=== PATIENT | male | born 1945 | race Caucasian/White ===

== ENCOUNTER 2019-04-25 23:54 | Inpatient (IN) ==
--- OUTSIDE RECORDS SUMMARY | 2019-04-25 23:57 | External Medical Summary | Continuity of Care Document ---
:1945 Author Name Gabriel Flores, Provider Address Unavailable Unavailable , Care Team Providers Name Role Phone Suzanne Hubbard III, M.D.. PCl Unavailable [email or web address] French GAN Unavailable [email or web address] Problems Nephrolithiasis (592.0) (N20.0) Ureteral stone (592.1) (N20.1) Lumbar canal stenosis (724.02) (M48.061) Lumbosacral radiculopathy at L5 (724.4) (M54.17) Allergies and Adverse Reactions No Known Drug Allergies (Allergy) Medications glipiZIDE XL 5 MG Oral Tablet Extended R elease 24 Hour; TAKE 1 TABLET DAILY WITH BREAKFAST. Refills: 0 Atorvastatin Calcium 20 MG Oral Tablet; TAKE 1 TABLET DAILY. Refills: 0 Potassium Citrate ER 10 MEQ (1080 MG) Or al Tablet Extended Release; Take 1 tablet daily Refills: 0 Allopurinol 100 MG Oral Tablet; TAKE 2 TABLETS DAILY. ELVIA Braswell Start: 27-Nov-2014 Quantity: 180 Refills: 2 Macuvite [facility] Care Oral Tablet; TAKE 1 TABLET DAILY. Start: 12-Mar-2014 Refills: 0 Tylenol Extra Strength 500 MG Oral Tablet Refills: 0 Doxepin HCl - 75 MG Oral Capsule; TAKE ONE CAPSULE BY MOUTH AT BEDTIME Stevie FOSTER M.D. E. P. Start: 14-Apr-2019 Quantity: 90 Refills: 2 Vitamin D3 1000 UNIT Oral Tablet Refills: 0 Procedures Procedures not documented Immunizations Immunizations not documented Social History - Smoking Status Current every day smoker Former smoker Plan of Treatment Planned Encounters Appointment; Fazal Hubbard III, M.D. Start: 28-Aug-2019 9:[address] Planned Observations Planned Goals not documented Results No Known Results Results not documented Encounters Appointment; Fazal Hubbard III, M.D. 14-Mar-2018 10:00 Encounter Diagnosis: Problem not documented Appointment; Fazal Hubbard III, M.D. 28-Aug-2019 9:45 Encounter Diagnosis: Problem not documented
[2019-04-26] MEDS ORDERED: ONDANSETRON INJ 2 MG/ML 2 ML VIAL IV STA (00:24)
[2019-04-26] MEDS ORDERED: HYDROmorphone INJ 0.5 MG/0.5 ML SYR IV STA ×3 (00:24→02:43)
[2019-04-26] MEDS ORDERED: SODIUM CHLORIDE 0.9% 1000ML 1,000 ML IV SCH ×2 (00:30→02:45)
[2019-04-26 00:34] LABS: Basophils # (auto) 0.03 K/uL (0-0.2); Basophils % (auto) 0.3 %; Eosinophils # (auto) 0.38 K/uL (0-0.5); Eosinophils % (auto) 3.5 %; Hematocrit (blood only) 40.2 % (42-52); Hemoglobin 14.1 g/dL (14.0-18.0); Immature Granulocytes # (auto) 0.08 K/uL (0.00-0.02); Immature Granulocytes % (auto) 0.7 %; Lymphocytes # (auto) 2.02 K/uL (1.2-3.4); Lymphocytes % (auto) 18.5 %; Mean Corpuscular Hgb Conc 35.1 g/dL (32-36); Mean Corpuscular Volume 85.5 fL (80-100); Mean Platelet Volume 9.9 fL (7.4-10.4); Monocytes # (auto) 0.66 K/uL (0.11-0.59); Monocytes % (auto) 6.1 %; Neutrophils # (auto) 7.73 K/uL (1.4-6.5); Neutrophils % (auto) 70.9 %; Platelet Count 191 K/uL (130-400); RDW Coefficient of Variation 13.7 % (11.5-14.5); RDW Standard Deviation 42.8 fL (36.4-46.3)
[2019-04-26 00:51] LABS: Albumin Level 3.9 gm/dl (3.4-5.0); BUN Creatinine Ratio 15.7 (10-20); Calcium 9.1 mg/dl (8.5-10.1); Creatinine Clr Calc Pharmacy 50.4 ml/min; Est GFR (African American) 45.7; Est GFR (Non-African American) 39.4; Potassium 4.3 mmol/L (3.5-5.1)
[2019-04-26 00:54] LABS: Bilirubin,Total 0.6 mg/dl (0.2-1); Globulin 3.8 gm/dl (2.5-4.0); Total Protein 7.7 gm/dl (6.4-8.2)
[2019-04-26 02:28] LABS: Appearance Urine Cloudy (Clear); Bacteria Urine Automated 4+ (Negative); Bilirubin Urine Negative (Negative); Blood Urine 1+ (Negative); Color Urine Yellow; Epithelial Cell Urine Auto 0-5 /lpf (0-5); Glucose Urine UA 3+ (Negative); Ketones Urine Negative (Negative); Leukocyte Esterase Urine 1+ (Negative); Nitrite Urine Positive (Negative); Protein Urine Negative (Negative); Specific Gravity Urine 1.026 (1.000-1.030); Urobilinogen Urine Negative (Negative); WBC Urine Automated >30 /hpf (0-5)
[2019-04-26] MEDS ORDERED: CIPROFLOXACIN 400 MG/200 ML BAG IV STA (02:42)
[2019-04-26] MEDS ORDERED: TAMSULOSIN HCL 0.4 MG CAP PO ONE (02:43)
[2019-04-26] MEDS ORDERED: KETOROLAC TROMETHAMINE 15 MG/ML VIAL IV STA (02:43)
--- NOTE | 2019-04-26 04:13 | History and Physical Report ---
DATE OF ADMISSION: 04/26/2019 CHIEF COMPLAINT: Right flank pain. HISTORY OF PRESENT ILLNESS: This is a 73-year-old male with past medical history significant for diabetes, hypercholesterolemia, right bundle-branch block, chronic low back pain, history of gout, history of kidney stones. Comes because of right flank pain and found to have 5-mm right kidney stone. The pain started yesterday late in the afternoon, severe in nature, in the right flank region and radiated somewhat into groins, also some nausea. Denies any fever, chills. No burning micturition, no hematuria. Normal bladder movements. Normal bowel movements. No blood in the stools. No chest pain, no shortness of breath, no cough, no headache, no blurred visions. Appetite is okay. No difficulty swallowing. Lives with his . Ambulates okay. Currently resting comfortable and hemodynamically stable. ALLERGIES: No known drug allergies. PAST MEDICAL HISTORY: As mentioned above. PAST SURGICAL HISTORY: Cystoscopy and lumbar spine injections. MEDICATIONS: The patient is on atorvastatin 20 mg p.o. daily, allopurinol 100 mg p.o. daily, glipizide 5 mg p.o. daily, potassium citrate 10 mEq daily, Tylenol p.r.n., vitamin D 1000 units p.o. daily, doxepin 75 mg p.o. at bedtime. FAMILY HISTORY: Significant for father had heart disorder. Mother has kidney stones. SOCIAL HISTORY: , quit smoking in 2012, prior to that smoked half pack a day for 40 years. No alcohol use, no drug use. REVIEW OF SYMPTOMS: As per HPI. Rest of the review of symptoms negative. PHYSICAL EXAMINATION: GENERAL: The patient is of moderate build, not in acute distress. VITAL SIGNS: Temperature 36.6, pulse 88, respiratory rate 18, blood pressure 156/87, oxygen 92% on room air. HEENT: No pallor, no icterus. Pupils equal, round, and reactive to light. NECK: No JVD, no neck masses, no carotid bruit. CARDIOVASCULAR: S1, S2 heard, regular rate and rhythm, no murmur, no gallop. RESPIRATORY SYSTEM: Normal AP diameter. No accessory muscle use. No wheezing, no crackles. ABDOMEN: Soft, bowel sounds present. Mild right CVA tenderness present. No guarding, no rigidity, no distention. CENTRAL NERVOUS SYSTEM: Cranial nerves II-XII grossly intact. Nonfocal. EXTREMITIES: No edema, no erythema. LABORATORY DATA: WBC 10.9, hemoglobin 14.1, hematocrit 40.2, platelets 191. Sodium 137, potassium 4.3, chloride 105, bicarb 26, BUN 26, creatinine 1.6, serum glucose 291, calcium 9.1, total bilirubin 0.6, AST 13, ALT 28, alkaline phosphatase 131. Urinalysis positive for nitrite and leukocyte esterase. IMAGING DATA: CT of abdomen and pelvis, official reading pending. ASSESSMENT AND PLAN: This is a 73-year-old male who presents with right flank pain and found to have a kidney stone. 1. Renal colic, right kidney stone, 5 mm, await official CAT scan reading. Will remain n.p.o. IV fluids, IV pain meds p.r.n., IV antiemetics p.r.n., and consult urology. H xof uric acid kidney stones, patient is on potassium citrate, which will continue and also allopurinol whic 2. urinary tract infection, IV Rocephin. Follow the cultures. 3. History of diabetes. Hold his home p.o. medications. Placed him on insulin sliding scale. Follow hemoglobin A1c levels. 4. History of hyperlipidemia. Continue statin. 5. Deep vein thrombosis prophylaxis, sequential compression devices for now. 6. Disposition: Admit to medical floor. Expect to discharge home and follow with his family doctor. Level 1 full code. MTDD
--- NOTE | 2019-04-26 04:20 | Emergency Department Note ---
Entered by Stefania Sams acting as a scribe for History of Present Illness General Chief complaint: Back Injury/Pain Stated complaint: BACK PAIN Source: patient History of Present Illness Provider complaint: back pain Onset (ago): hour(s) 10 Location: back and right Pain Consistency: + constant Maximum Pain Intensity: 10 Relieved By: + none Exacerbated By: + none Associated symptoms: + denies other symptoms; no other (urinary symptoms) The patient is a 73 y/o male who presents to the emergency department for evaluation of constant right back pain that began roughly 10 hours ago while. The patient states that the pain began while he was mowing the grass and has been constant since. He notes that he believes it is a kidney stone which he has had in the past. The patient follows with Dr. Hurd of nephrology and Dr. Espinoza of urology. The patient reports that he does have a history of back issues. The patient denies trouble urinating, blood in urine and any other symptoms. Home Medications Home Medications Medication Instructions Recorded Confirmed Type A-C-E-zinc ox-cupric ox-lutein 1 tab PO DAILY 04/26/19 04/26/19 History [[facility]] allopurinol 100 mg PO DAILY 04/26/19 04/26/19 History atorvastatin 20 mg PO DAILY 04/26/19 04/26/19 History cholecalciferol (vitamin D3) 1,000 unit PO DAILY 04/26/19 04/26/19 History [Vitamin D3] doxepin 75 mg PO HS 04/26/19 04/26/19 History glipizide 5 mg PO DAILY 04/26/19 04/26/19 History potassium citrate 5 meq PO DAILY 04/26/19 04/26/19 History Allergies Allergy/AdvReac Type Severity Reaction Status Date / Time No Known Allergies Allergy Unverified 04/26/19 01:27 Past Med/Surg History Medical History History of back problems (Chronic) Kidney stone (Resolved) Social History Preferred Language: Ecuadorean Communication Ability: Effective 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 and A total of 10 systems reviewed and were otherwise negative Physical Exam Vital Signs Vital Signs - 24 hr 04/26/19 00:06 04/26/19 01:28 04/26/19 02:00 Temperature 36.6 C Temperature Source Oral Sepsis Recent Fever Within 48 Hours No Sepsis New/Unexplained Change in Mental Status No Sepsis Action Taken by Nursing No Action Required Pulse Rate 91 H Pulse Rate [Apical] 94 H 92 H Pulse Rhythm Regular Respiratory Rate 20 18 18 Respiratory Effort / Characteristics Non-Labored Spontaneous Respiratory Depth Normal Respiratory Pattern Regular Blood Pressure 154/84 H Blood Pressure [Left Arm] 155/81 H 163/89 H Blood Pressure Mean 107 Blood Pressure Mean [Left Arm] 105 113 Blood Pressure Position Sitting Pulse Oximetry 94 93 93 Oxygen Delivery Method Room Air Room Air Room Air Oxygen Flow Rate 04/26/19 03:02 04/26/19 03:30 Temperature Temperature Source Sepsis Recent Fever Within 48 Hours Sepsis New/Unexplained Change in Mental Status Sepsis Action Taken by Nursing Pulse Rate Pulse Rate [Apical] 88 91 H Pulse Rhythm Respiratory Rate 18 18 Respiratory Effort / Characteristics Respiratory Depth Respiratory Pattern Blood Pressure Blood Pressure [Left Arm] 156/87 H 136/83 Blood Pressure Mean Blood Pressure Mean [Left Arm] 110 100 Blood Pressure Position Pulse Oximetry 92 94 Oxygen Delivery Method Room Air Nasal Cannula Oxygen Flow Rate 2 Vital signs reviewed. General: Elderly, appears uncomfortable, in no significant distress. HEENT: No scleral icterus, PERRLA, neck supple. Atraumatic. Cardiovascular: Regular rate and rhythm, no extra sounds. Pulmonary: Clear to auscultation bilaterally, normal work of breathing. Abdomen: Soft, nontender, nondistended, positive bowel sounds. Musculoskeletal: Atraumatic, no peripheral edema. Neurologic: Patient awake alert and oriented x 3. Skin: Warm, dry, no rash. Back: No CVA tenderness. Course 0023: The patient was evaluated in room B02. A complete history and physical exam was performed. 0243: I discussed the results with the patient 0252: [facility]. He will evaluate for further management. Administered Medications Sodium Chloride (Nss 1000ml) 1,000 mls @ 125 mls/hr IV .Q8H [facility] Stop: 07/19/19 04:47 Last Admin: 04/26/19 05:07 Dose: 125 mls/hr Documented by: [id number] Ceftriaxone Sodium 2,000 mg/ (Dextrose) 70 mls @ 100 mls/hr IV Q24H [facility]; Protocol Stop: 05/06/19 05:59 Last Admin: 04/26/19 05:54 Dose: 100 mls/hr Documented by: [id number] Insulin Aspart (Novolog Flexpen) 0 units SC Q6 [facility] Stop: 05/26/19 05:59 Last Admin: 04/26/19 05:57 Dose: 6 units Documented by: [id number] Cosigned by: [id number] Discontinued Medications Hydromorphone HCl (Dilaudid) 0.5 mg IV NOW STA Stop: 04/26/19 00:25 Last Admin: 04/26/19 00:33 Dose: 0.5 mg Documented by: [id number] Hydromorphone HCl (Dilaudid) 0.5 mg IV NOW STA Stop: 04/26/19 01:23 Last Admin: 04/26/19 01:25 Dose: 0.5 mg Documented by: [id number] Hydromorphone HCl (Dilaudid) 0.5 mg IV NOW STA Stop: 04/26/19 02:44 Last Admin: 04/26/19 02:52 Dose: 0.5 mg Documented by: [id number] Sodium Chloride (Nss 1000ml) 1,000 mls @ 999 mls/hr IV .Q1H1M [place] Stop: 04/26/19 01:30 Last Infusion: 04/26/19 01:43 Dose: 0 mls/hr Documented by: [id number] Admin: 04/26/19 00:33 Dose: 999 mls/hr Documented by: [id number] Ciprofloxacin (Cipro) 400 mg in 200 mls @ 200 mls/hr IV NOW STA Stop: 04/26/19 03:41 Last Infusion: 04/26/19 04:03 Dose: 0 mls/hr Documented by: [id number] Admin: 04/26/19 02:50 Dose: 200 mls/hr Documented by: [id number] Sodium Chloride (Nss 1000ml) 1,000 mls @ 125 mls/hr IV .Q8H [facility] Stop: 05/26/19 02:44 Last Infusion: 04/26/19 05:10 Dose: 0 mls/hr Documented by: [id number] Admin: 04/26/19 02:52 Dose: 125 mls/hr Documented by: [id number] Ketorolac Tromethamine (Toradol) 15 mg IV NOW STA Stop: 04/26/19 02:44 Last Admin: 04/26/19 02:50 Dose: 15 mg Documented by: [id number] Ondansetron HCl (Zofran) 4 mg IV NOW STA Stop: 04/26/19 00:25 Last Admin: 04/26/19 00:34 Dose: 4 mg Documented by: [id number] Tamsulosin HCl (Flomax) 0.4 mg PO NOW ONE Stop: 04/26/19 02:44 Last Admin: 04/26/19 02:50 Dose: 0.4 mg Documented by: [id number] Medical Decision Making Differential Diagnosis Differential diagnosis includes: renal colic, appendicitis, diverticulitis, mesenteric ischemia, aortic pathology, infections, inflammatory bowel disease, PUD, biliary pathology, UTI, as well as others were entertained. Medical Records Attestation: I reviewed the patient's medical records. Home Medications Current Medication List: was personally reviewed by me Laboratory Data Attestation: I reviewed the patient's lab results. Result diagrams: 04/26/19 00:21 04/26/19 00:21 Lab Results 04/26/19 04/26/19 04/26/19 Range/Units 00:21 00:21 02:17 WBC 10.90 H (4.8-10.8) K/uL RBC 4.70 (4.7-6.1) M/uL Hgb 14.1 (14.0-18.0) g/dL Hct 40.2 L (42-52) % MCV 85.5 (80-100) fL MCH 30.0 (25-34) pg MCHC 35.1 (32-36) g/dL RDW Std Deviation 42.8 (36.4-46.3) fL RDW Coeff of Kacy 13.7 (11.5-14.5) % Plt Count 191 (130-400) K/uL MPV 9.9 (7.4-10.4) fL Immature Gran % (Auto) 0.7 % Neut % (Auto) 70.9 % Lymph % (Auto) 18.5 % Fajardo % (Auto) 6.1 % Eos % (Auto) 3.5 % Baso % (Auto) 0.3 % Immature Gran # (Auto) 0.08 H (0.00-0.02) K/uL Neut # (Auto) 7.73 H (1.4-6.5) K/uL Lymph # (Auto) 2.02 (1.2-3.4) K/uL Fajardo # (Auto) 0.66 H (0.11-0.59) K/uL Eos # (Auto) 0.38 (0-0.5) K/uL Baso # (Auto) 0.03 (0-0.2) K/uL Sodium 137 (136-145) mmol/L Potassium 4.3 (3.5-5.1) mmol/L Chloride 105 (98-107) mmol/L Carbon Dioxide 26 (21-32) mmol/L Anion Gap 6.0 (3-11) BUN 26 H (7-18) mg/dl Creatinine 1.67 H (0.6-1.4) mg/dl Est Cr Clr Drug Dosing 50.4 ml/min Est GFR ( Amer) 45.7 Est GFR (Non-Af Amer) 39.4 BUN/Creatinine Ratio 15.7 (10-20) Glucose 291 H (70-99) mg/dl Calcium 9.1 (8.5-10.1) mg/dl Total Bilirubin 0.6 (0.2-1) mg/dl AST 13 L (15-37) U/L ALT 28 (12-78) U/L Alkaline Phosphatase 131 H (45-117) U/L Total Protein 7.7 (6.4-8.2) gm/dl Albumin 3.9 (3.4-5.0) gm/dl Globulin 3.8 (2.5-4.0) gm/dl Albumin/Globulin Ratio 1.0 (0.9-2) Urine Color Yellow Urine Appearance Cloudy A (Clear) Urine pH 7.0 (4.5-7.5) Ur Specific Gobles 1.026 (1.000-1.030) Urine Protein Negative (Negative) Urine Glucose (UA) 3+ H (Negative) Urine Ketones Negative (Negative) Urine Blood 1+ H (Negative) Urine Nitrite Positive A (Negative) Urine Bilirubin Negative (Negative) Urine Urobilinogen Negative (Negative) Ur Leukocyte Esterase 1+ H (Negative) Urine WBC (Auto) >30 H (0-5) /hpf Urine RBC (Auto) 5-10 H (0-4) /hpf U Hyaline Cast (Auto) 10-30 H (0-5) /lpf U Epithel Cells (Auto) 0-5 (0-5) /lpf Urine Bacteria (Auto) 4+ H (Negative) Imaging Data Radiologist's Impression: Radiology results as stated below per my review and the radiologist's interpretation: CT ABDOMEN AND PELVIS WITHOUT CONTRAST 5 mm distal right urethral stone with moderate hydronephrosis Cholelithiasis No obstruction or bowel wall thickening Nonobstructing right renal stone Multiple renal cysts Punctate bladder stone appears to be present Blood Pressure Blood Pressure Findings: Elevated blood pressure Blood Pressure Disposition: further management by hospitalist FLORES Smith This patient was evaluated and appeared to be in no significant distress. IV access was obtained and laboratory work was drawn. IV fluids were initiated, IV Dilaudid and IV Zofran were administered. CT imaging of the abdomen and pelvis was obtained and reveals an obstructing 5 mm distal right ureteral calculus. Patient has an elevated WBC at 10.9. UA is positive for infection. Patient's vital signs have remained stable. He is afebrile. Patient was given IV Cipro. He did require multiple doses of IV Dilaudid for pain control. He was then given 15 mg of IV Toradol and Flomax 0.4 mg p.o. IV fluids were continued. Patient's pain is not controlled well and he will be evaluated by the hospit ali service for further antibiotic therapy, urologic consultation and pain management. Impression & Plan Renal colic, Ureteral stone, UTI (urinary tract infection) Discharge Plan Visit Data *Final* Discharge Date/Time: 04/26/19 04:13 Chief Complaint: Back Injury/Pain Stated Complaint: BACK PAIN ED Provider: Milly Waters Discharge Problem: Renal colic, Ureteral stone, UTI (urinary tract infection) Patient Disposition: Admitted As Inpatient Discharge Instructions Interventions: ED Discharge Assessment Last Done: 04/26/19 04:13 Discharge Problem: UTI (urinary tract infection) Qualifiers: Urinary tract infection type: site unspecified Hematuria presence: without hematuria Qualified Code(s): N39.0 - Urinary tract infection, site not specified The scribe's documentation has been prepared under my direction and personally reviewed by me in its entirety. I confirm that the note above accurately reflects all work, treatment, procedures, and medical decision making performed by me.
[2019-04-26] MEDS ORDERED: ONDANSETRON INJ 2 MG/ML 2 ML VIAL IV PRN (04:48)
[2019-04-26] MEDS: SODIUM CHLORIDE 0.9% 1000ML 1,000 ML IV SCH ×3 (05:07→20:31)
[2019-04-26] MEDS ORDERED: DEXTROSE 50% 50 ML SYRINGE IV PRN (05:15)
[2019-04-26] MEDS ORDERED: GLUCAGON FOR INJ 1 MG VIAL IM PRN (05:15)
[2019-04-26] MEDS ORDERED: CARBOHYDRATES FOR HYPOGLYCEMIA PO PRN (05:15)
[2019-04-26] MEDS ORDERED: GLUCOSE 10 TABS/TUBE PO PRN (05:15)
[2019-04-26] MEDS ORDERED: GLUCOSE 40% GEL 15 GM TUBE PO PRN (05:15)
[2019-04-26] MEDS: cefTRIAXone SODIUM 2,000 MG in DEXTROSE 5% 50 ML IV SCH (05:54)
[2019-04-26] MEDS: INSULIN ASPART 100 UNITS/ML 3 ML PEN SC SCH ×4 (05:57→23:33)
--- NOTE | 2019-04-26 06:32 | CT Scan Report ---
CT abd pelvis wo con CT DOSE: 2041.65 mGy.cm HISTORY: Flank pain R flank pain TECHNIQUE: Multiaxial CT images of the abdomen and pelvis were performed without contrast. A dose lo wering technique was utilized adhering to the principles of ALARA. COMPARISON STUDY: 11/26/2014 FINDINGS: Minimal dependent basilar atelectasis. Gallbladder is filled with gallstones and slightly c ontracted. The liver spleen and pancreas are unremarkable. The obstructing calculus in prior examination is no longer present. There are bilateral renal cysts. There is a 4 mm hyperdense cortical cyst in left kidney unchanged. There is moderate atrophy and cortical substance loss the right kidney. There is right hydroureterone phrosis with evidence for an obstructing calculus measuring 5 mm at approximately the level of the in ferior right sacroiliac joint. A small associated 2 mm calculus may be present. Bladder is midline. There is a 2 mm calcification posterior aspect of the bladder. Bowel pattern is remarkable for scattered colonic diverticulosis. There is no evidence of diverticuli tis. The appendix is normal. IMPRESSION: 1. 5 mm obstructing calculus distal right ureter. 2. Moderate right hydroureteronephrosis. 3. Renal cysts stable from the prior study. 4. Potential small associated 2 mm calculus distal right ureter adjacent to the 5 mm calculus. 5. Scattered colonic diverticulosis. 6. Normal appendix. The above report was generated using voice recognition software. It may contain grammatical, syntax or spelling errors. Electronically signed by: Khurram Ziegler M.D. 04/26/2019 6:31 AM
[2019-04-26] MEDS: CEROVITE ADV FORMULA TAB PO SCH (08:33)
[2019-04-26] MEDS: ATORVASTATIN 20 MG TAB PO SCH (08:33)
[2019-04-26] MEDS: ALLOPURINOL 100 MG TAB PO SCH (08:33)
[2019-04-26] MEDS: CHOLECALCIFEROL 1,000 UNITS TAB PO SCH (08:33)
[2019-04-26] MEDS: POTASSIUM CITRATE 10 MEQ TAB PO SCH (08:33)
[2019-04-26] MEDS ORDERED: INSULIN GLARGINE SOLOSTAR 100 UNITS/ML 3 ML PEN SC ONE (09:30)
--- NOTE | 2019-04-26 10:12 | XRay Report ---
XR KUB/Abdomen 1 view CLINICAL HISTORY: ureteral stone nephrocalcinosis COMPARISON STUDY: CT 04/26/2019. Routine abdomen series 01/03/2014 FINDINGS: Multiple bilateral vascular calcifications. These are unchanged in the prior study. Renal a nd psoas shadows appear to be unremarkable. Overlap artifact versus distal right ureteral calcification immediately adjacent to the inferior righ t sacroiliac joint. IMPRESSION: 1. Overlap artifact versus 5 mm calculus overlying the lateral aspect right sacrum. 2. Nonobstructive bowel pattern. The above report was generated using voice recognition software. It may contain grammatical, syntax or spelling errors. Electronically signed by: Khurram Ziegler M.D. 04/26/2019 10:10 AM
--- NOTE | 2019-04-26 10:59 | Urology Consultation ---
Date of Consultation April 26, 2019 Assessment & Plan (1) Ureteral stone: 5mm distal stone, likely uric acid. Discussed risk of stone with likely UTI. Discussed treatment options. Patient strongly prefers to avoid stent today and his stone is in distal position and of a passable size. His symptoms are controlled, remains on antibiotics. Clinically appears well on exam, afebrile. Will require close observation - if patient develops a fever or declines in status will require stent placement urgently. Please contact our service promptly. Ok to provide diet today. Push fluid intake, continue IVF and Tamsulosin. Strain all urine. Will make NPO at midnight in the event that intervention is required tomorrow. Will continue to follow along with primary service. Pt seen agree with above Pain completly gone pt thinks he passed stone Saúl [place]arg[place] (2) UTI (urinary tract infection): History of Present Illness Attending Physician: Yusuf Willard MD History of Present Illness Mr. Oneill is a 73 YO male with history of uric acid stones, last evaluated by Dr. Espinoza in 2016, with a 5mm distal right ureteral stone. Patient reports worsening back and flank pain bringing him to the ER. CT scan demonstrates his distal stone and resulting hydronephrosis. He continues to void spontaneously without bother. No gross hematuria. No fever/chills. Some nausea, no vomiting. Allergies Allergy/AdvReac Type Severity Reaction Status Date / Time No Known Allergies Allergy Unverified 04/26/19 01:27 Home Medications Home Medications Medication Instructions Recorded Confirmed Type A-C-E-zinc ox-cupric ox-lutein 1 tab PO DAILY 04/26/19 04/26/19 History [[facility]] allopurinol 100 mg PO DAILY 04/26/19 04/26/19 History atorvastatin 20 mg PO DAILY 04/26/19 04/26/19 History cholecalciferol (vitamin D3) 1,000 unit PO DAILY 04/26/19 04/26/19 History [Vitamin D3] doxepin 75 mg PO HS 04/26/19 04/26/19 History glipizide 5 mg PO DAILY 04/26/19 04/26/19 History potassium citrate 5 meq PO DAILY 04/26/19 04/26/19 History Patient History Medical History History of back problems (Chronic) Kidney stone (Resolved) Social History Preferred Language: Scottish Communication Ability: Effective 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 Beliefs That Will Affect Care: None Current Living Situation: Spouse Feels Safe at Home: Yes Safety Concerns: Feels Safe At This Time Smoking Status: Former smoker Hx Alcohol Use: No Hx Substance Use: No Review of Systems Constitutional: no fever and no chills Eyes: no worsening vision Ear, Nose, Mouth, Throat: no hearing loss Respiratory: no dyspnea Cardiovascular: no chest pain Gastrointestinal: + nausea; no vomiting Genitourinary: no difficulty urinating and no hematuria Musculoskeletal: + back pain Neurologic: no confusion Psychiatric: no problem reported Endocrine: + fatigue Physical Exam Constitutional: WD/WN, vitals as above ENMT: Ears: no hearing impairment Neck: normal visual inspection Respiratory: normal respiratory effort; no labored breathing and does not use accessory muscles Cardiovascular: Vessels: no JVD Gastrointestinal (Abdomen): Percussion/Palpation: abdomen soft; abdomen nontender Psychiatric: A+Ox3, euthymic affect Genitourinary: bladder normal to palpation Results & Data Vital Signs (Past 12 Hours) Vital Signs Temp Pulse Pulse Resp BP BP BP 04/26/19 07:44 36.3 C L 95 H 20 147/84 H 04/26/19 04:29 36.6 C 99 H 16 143/87 H 04/26/19 04:04 96 H 16 124/87 04/26/19 03:30 91 H 18 136/83 04/26/19 03:02 88 18 156/87 H 04/26/19 02:00 92 H 18 163/89 H 04/26/19 01:28 94 H 18 155/81 H 04/26/19 00:06 36.6 C 91 H 20 154/84 H Pulse Ox 04/26/19 07:44 98 04/26/19 04:29 93 04/26/19 04:04 96 04/26/19 03:30 94 04/26/19 03:02 92 04/26/19 02:00 93 04/26/19 01:28 93 04/26/19 00:06 94 (1) UTI (urinary tract infection) Hematuria presence: without hematuria Urinary tract infection type: site unspecified Qualified Code(s): N39.0 - Urinary tract infection, site not specified
[2019-04-26] MEDS: ACETAMINOPHEN 325 MG TAB PO PRN (17:20)
--- NOTE | 2019-04-26 17:28 | Hospitalist Progress Note ---
Date of Service April 26, 2019 Assessment & Plan (1) Ureteral stone: ASSESSMENT AND PLAN: This is a 73-year-old male who presents with right flank pain and found to have a kidney stone. 1. Renal colic, right kidney stone, 5 mm with hydronephrosis - evaluated by Urology continue IV fluids, pain control strain all urine - NPO after midnight, re-eval in AM - crea at baseline 2. urinary tract infection, IV Rocephin. Follow the cultures. 3. History of diabetes. Hold his home p.o. medications. Placed him on insulin sliding scale. Follow hemoglobin A1c levels. 4. History of hyperlipidemia. Continue statin. 5. Deep vein thrombosis prophylaxis, sequential compression devices for now. 6. Disposition: Admit to medical floor. Expect to discharge home and follow with his family doctor. Level 1 full code. Subjective ff up for r ureteral stone seen resting in bed, comfortable states he feels better overall right sided pain- mostly resolved denies dysuria, hematuria denies fever/chills no other symptoms Review of Systems Review of Systems: All systems reviewed & are unremarkable except as noted in HPI & below Physical Exam Physical Exam: General- oriented x 3, not in distress, speaks in sentences with no effort or accessory muscle use Head- atraumatic Eyes- PERRL, EOMI, anicteric ENT- oropharynx clear Neck- supple, no JVD, no adenopathy, no thyromegaly; carotids +2/2, no bruits appreciated Lungs- clear to auscultation bilaterally, no rales/wheezes Heart- normal rate, regular rhythm; no murmur, no gallop, no rub appreciated Abdomen- normal bowel sounds, nondistended, soft, nontender, no masses or hepatosplenomegaly Extremities- no pretibial edema, no calf tenderness; peripheral pulses intact Neuro- alert, oriented x 3; CN 2-12 grossly intact; motor 5/5 bilaterally;sensation 100% on all extremities; no other gross focal neurologic deficits Skin- warm & dry Results & Data Vital Signs (Past 12 Hours) Vital Signs Temp Pulse Pulse Resp BP BP Pulse Ox 04/26/19 16:03 36.5 C 104 H 18 129/66 96 04/26/19 07:44 36.3 C L 95 H 20 147/84 H 98 Laboratory Results Laboratory Results - last 24 hr 04/26/19 04/26/19 04/26/19 00:21 00:21 02:17 WBC 10.90 H RBC 4.70 Hgb 14.1 Hct 40.2 L MCV 85.5 MCH 30.0 MCHC 35.1 RDW Std Deviation 42.8 RDW Coeff of Kacy 13.7 Plt Count 191 MPV 9.9 Immature Gran % (Auto) 0.7 Neut % (Auto) 70.9 Lymph % (Auto) 18.5 [place] % (Auto) 6.1 Eos % (Auto) 3.5 Baso % (Auto) 0.3 Immature Gran # (Auto) 0.08 H Neut # (Auto) 7.73 H Lymph # (Auto) 2.02 [place] # (Auto) 0.66 H Eos # (Auto) 0.38 Baso # (Auto) 0.03 Sodium 137 Potassium 4.3 Chloride 105 Carbon Dioxide 26 Anion Gap 6.0 BUN 26 H Creatinine 1.67 H Est Cr Clr Drug Dosing 50.4 Est GFR ( Amer) 45.7 Est GFR (Non-Af Amer) 39.4 BUN/Creatinine Ratio 15.7 Glucose 291 H POC Glucose Calcium 9.1 Total Bilirubin 0.6 AST 13 L ALT 28 Alkaline Phosphatase 131 H Total Protein 7.7 Albumin 3.9 Globulin 3.8 Albumin/Globulin Ratio 1.0 Urine Color Yellow Urine Appearance Cloudy A Urine pH 7.0 Ur Specific [place] 1.026 Urine Protein Negative Urine Glucose (UA) 3+ H Urine Ketones Negative Urine Blood 1+ H Urine Nitrite Positive A Urine Bilirubin Negative Urine Urobilinogen Negative Ur Leukocyte Esterase 1+ H Urine WBC (Auto) >30 H Urine RBC (Auto) 5-10 H U Hyaline Cast (Auto) 10-30 H U Epithel Cells (Auto) 0-5 Urine Bacteria (Auto) 4+ H 04/26/19 04/26/19 04/26/19 05:03 05:05 10:16 WBC RBC Hgb Hct MCV MCH MCHC RDW Std Deviation RDW Coeff of Kacy Plt Count MPV Immature Gran % (Auto) Neut % (Auto) Lymph % (Auto) [place] % (Auto) Eos % (Auto) Baso % (Auto) Immature Gran # (Auto) Neut # (Auto) Lymph # (Auto) [place] # (Auto) Eos # (Auto) Baso # (Auto) Sodium Potassium Chloride Carbon Dioxide Anion Gap BUN Creatinine Est Cr Clr Drug Dosing Est GFR ( Amer) Est GFR (Non-Af Amer) BUN/Creatinine Ratio Glucose POC Glucose 318 H* 291 H 246 H Calcium Total Bilirubin AST ALT Alkaline Phosphatase Total Protein Albumin Globulin Albumin/Globulin Ratio Urine Color Urine Appearance Urine pH Ur Specific [place] Urine Protein Urine Glucose (UA) Urine Ketones Urine Blood Urine Nitrite Urine Bilirubin Urine Urobilinogen Ur Leukocyte Esterase Urine WBC (Auto) Urine RBC (Auto) U Hyaline Cast (Auto) U Epithel Cells (Auto) Urine Bacteria (Auto) 04/26/19 04/26/19 12:13 16:58 WBC RBC Hgb Hct MCV MCH MCHC RDW Std Deviation RDW Coeff of Kacy Plt Count MPV Immature Gran % (Auto) Neut % (Auto) Lymph % (Auto) [place] % (Auto) Eos % (Auto) Baso % (Auto) Immature Gran # (Auto) Neut # (Auto) Lymph # (Auto) [place] # (Auto) Eos # (Auto) Baso # (Auto) Sodium Potassium Chloride Carbon Dioxide Anion Gap BUN Creatinine Est Cr Clr Drug Dosing Est GFR ( Amer) Est GFR (Non-Af Amer) BUN/Creatinine Ratio Glucose POC Glucose 217 H 232 H Calcium Total Bilirubin AST ALT Alkaline Phosphatase Total Protein Albumin Globulin Albumin/Globulin Ratio Urine Color Urine Appearance Urine pH Ur Specific [place] Urine Protein Urine Glucose (UA) Urine Ketones Urine Blood Urine Nitrite Urine Bilirubin Urine Urobilinogen Ur Leukocyte Esterase Urine WBC (Auto) Urine RBC (Auto) U Hyaline Cast (Auto) U Epithel Cells (Auto) Urine Bacteria (Auto)
[2019-04-26] MEDS: MoRPHine SULFATE 4 MG/ML 1 ML CARP\\VIAL IV PRN ×2 (18:28→23:38)
[2019-04-26] MEDS ORDERED: TAMSULOSIN HCL 0.4 MG CAP PO SCH (21:00)
[2019-04-26] MEDS ORDERED: DOXEPIN HCL 75 MG CAPSULE PO SCH (21:00)
[2019-04-27] MEDS: SODIUM CHLORIDE 0.9% 1000ML 1,000 ML IV SCH (04:35)
[2019-04-27 05:33] LABS: Basophils # (auto) 0.03 K/uL (0-0.2); Basophils % (auto) 0.3 %; Eosinophils # (auto) 0.13 K/uL (0-0.5); Eosinophils % (auto) 1.1 %; Hematocrit (blood only) 35.1 % (42-52); Hemoglobin 11.9 g/dL (14.0-18.0); Immature Granulocytes # (auto) 0.04 K/uL (0.00-0.02); Immature Granulocytes % (auto) 0.3 %; Lymphocytes # (auto) 1.06 K/uL (1.2-3.4); Lymphocytes % (auto) 9.2 %; Mean Corpuscular Hgb Conc 33.9 g/dL (32-36); Mean Corpuscular Volume 87.8 fL (80-100); Mean Platelet Volume 9.2 fL (7.4-10.4); Monocytes # (auto) 0.81 K/uL (0.11-0.59); Neutrophils # (auto) 9.46 K/uL (1.4-6.5); Neutrophils % (auto) 82.1 %; Platelet Count 152 K/uL (130-400); RDW Standard Deviation 45.1 fL (36.4-46.3); White Blood Count 11.53 K/uL (4.8-10.8)
[2019-04-27] MEDS: cefTRIAXone SODIUM 2,000 MG in DEXTROSE 5% 50 ML IV SCH (05:44)
[2019-04-27] MEDS: INSULIN ASPART 100 UNITS/ML 3 ML PEN SC SCH (05:50)
[2019-04-27 05:58] LABS: BUN Creatinine Ratio 11.9 (10-20); Calcium 8.1 mg/dl (8.5-10.1); Creatinine Clr Calc Pharmacy 55.3 ml/min; Est GFR (African American) 51.6; Est GFR (Non-African American) 44.5; Magnesium 1.7 mg/dl (1.8-2.4); Potassium 4.2 mmol/L (3.5-5.1)
[2019-04-27 06:06] LABS: Estimated Average Glucose 186 mg/dl; Hemoglobin A1C 8.1 % (4.5-5.6)
[2019-04-27] MEDS: POTASSIUM CITRATE 10 MEQ TAB PO SCH (07:42)
[2019-04-27] MEDS: ATORVASTATIN 20 MG TAB PO SCH (07:42)
[2019-04-27] MEDS: CEROVITE ADV FORMULA TAB PO SCH (07:42)
[2019-04-27] MEDS: CHOLECALCIFEROL 1,000 UNITS TAB PO SCH (07:43)
[2019-04-27] MEDS: ALLOPURINOL 100 MG TAB PO SCH (07:43)
[2019-04-27] MEDS: ACETAMINOPHEN 325 MG TAB PO PRN (07:45)
--- NOTE | 2019-04-27 09:35 | Urology Progress Note ---
Date of Service April 27, 2019 Assessment & Plan (1) Ureteral stone: 73 YO male with 5mm distal likely uric acid stone, resulting hydro, renal colic. Symptoms appear to be very well controlled, patient remains afebrile. Offered surgical intervention today including ureteroscopy with stent placement - patient declines. He and prefer discharge with supportive medication. We discussed worrisome signs indicating that they need to return to the hospital. I do not think that a repeat CT scan is warranted at this time due to his improved clinical presentation. Recommend he continue Tamsulosin, pain & nausea control, and antibiotic for assumed UTI at home. Will plan for close outpatient URO follow up next week to monitor. Encouraged to contact our outpatient office with questions or concerns. Thank you for allowing us to participate in the inpatient care of Mr. Oneill. Please contact our service if we can be of further assistance during hospitalization. (2) UTI (urinary tract infection): Subjective 73 YO male with 5mm distal likely uric acid stone, resulting hydro, renal colic. Patient reports feeling well this morning. Is not experiencing any pain, suspects that stone may have passed into bladder. Required only 1 dose of pain medication overnight. Is experiencing some nausea however suspects this is related to his NPO status. Voiding spontaneously. No fevers/chills. Review of Systems Review of Systems: All systems reviewed & are unremarkable except as noted in HPI & below Physical Exam Physical Exam: WN/WD NAD. Resp effort normal. No JVD. Abd soft/nontender. Gu: bladder nondistended. A&O x3, appropriate affect. Results & Data Vital Signs (Past 12 Hours) Vital Signs Temp Pulse Resp BP BP Pulse Ox 04/27/19 07:00 37.0 C 93 H 20 122/72 95 04/26/19 23:08 35.7 C L 92 H 20 111/62 94 (1) UTI (urinary tract infection) Hematuria presence: without hematuria Urinary tract infection type: site unspecified Qualified Code(s): N39.0 - Urinary tract infection, site not specified
[2019-04-27] MEDS ORDERED: INSULIN GLARGINE SOLOSTAR 100 UNITS/ML 3 ML PEN SC SCH (10:00)
--- NOTE | 2019-04-27 11:31 | Hospitalist Progress Note ---
Date of Service April 27, 2019 Assessment & Plan (1) Ureteral stone: ASSESSMENT AND PLAN: This is a 73-year-old male who presents with right flank pain and found to have a kidney stone. 1. Renal colic, right kidney stone, 5 mm with hydronephrosis - evaluated by Urology service-[facility] Given tamsulosin, IV fluids, analgesics -Urine was drained, no stone noted Patient much improved clinically, declined any urologic intervention at this time Cleared by urology service for discharge, recommend continue tamsulosin, cefuroxime 500 mg twice a day to complete 7 days of antibiotic treatment, for possible UTI, tramadol 50 mg every 6 as needed for pain Follow-up with urology service as scheduled Follow-up with primary care physician May 02Wednesday 10:05 AM, Dr. Mojica 2. urinary tract infection Urinalysis suggestive of UTI, urine cultures pending Discharge on cefuroxime 500 mg twice a day to complete 7 days of antibiotic treatment 3. History of diabetes. A1c 8, continue usual regimen Follow-up as an outpatient 4. History of hyperlipidemia. Continue statin. 5. Deep vein thrombosis prophylaxis, sequential compression devices for now. 6. Disposition: Discharge to home today Follow-up with PCP as outlined above Follow-up with urology as scheduled Subjective Follow-up for ureteral stone Seen resting in bed, comfortable, not in distress next Good spirits States left flank pain abdominal pain resolved Denies problem with urination, denies hematuria/dysuria No fevers or chills Denies other symptoms States he is ready would like to be discharged today Review of Systems Review of Systems: All systems reviewed & are unremarkable except as noted in HPI & below Physical Exam Physical Exam: General- oriented x 3, not in distress, speaks in sentences with no effort or accessory muscle use Eyes- anicteric Neck- no JVD Lungs- clear breath sounds bilaterally Heart- normal rate, regular rhythm; no murmurs Abdomen- normal bowel sounds, nondistended, soft, nontender No CVA tenderness Extremities- no pretibial edema, no calf tenderness Neuro- alert, oriented x 3; no gross focal neurologic deficits Skin- warm & dry Results & Data Vital Signs (Past 12 Hours) Vital Signs Temp Pulse Pulse Resp BP BP Pulse Ox 04/27/19 11:17 37.0 C 95 H 93 H 20 122/72 111/62 95 04/27/19 07:00 37.0 C 93 H 20 122/72 95 Laboratory Results Laboratory Results - last 24 hr 04/26/19 04/26/19 04/26/19 12:13 16:58 20:13 WBC RBC Hgb Hct MCV MCH MCHC RDW Std Deviation RDW Coeff of Kacy Plt Count MPV Immature Gran % (Auto) Neut % (Auto) Lymph % (Auto) [place] % (Auto) Eos % (Auto) Baso % (Auto) Immature Gran # (Auto) Neut # (Auto) Lymph # (Auto) [place] # (Auto) Eos # (Auto) Baso # (Auto) Sodium Potassium Chloride Carbon Dioxide Anion Gap BUN Creatinine Est Cr Clr Drug Dosing Est GFR ( Amer) Est GFR (Non-Af Amer) BUN/Creatinine Ratio Glucose POC Glucose 217 H 232 H 193 H Estimat Average Glucose Hemoglobin A1c Calcium Magnesium 04/27/19 04/27/19 04/27/19 05:18 05:18 05:18 WBC 11.53 H RBC 4.00 L Hgb 11.9 L Hct 35.1 L MCV 87.8 MCH 29.8 MCHC 33.9 RDW Std Deviation 45.1 RDW Coeff of Kacy 14.0 Plt Count 152 MPV 9.2 Immature Gran % (Auto) 0.3 Neut % (Auto) 82.1 Lymph % (Auto) 9.2 [place] % (Auto) 7.0 Eos % (Auto) 1.1 Baso % (Auto) 0.3 Immature Gran # (Auto) 0.04 H Neut # (Auto) 9.46 H Lymph # (Auto) 1.06 L [place] # (Auto) 0.81 H Eos # (Auto) 0.13 Baso # (Auto) 0.03 Sodium 137 Potassium 4.2 Chloride 107 Carbon Dioxide 26 Anion Gap 4.0 BUN 18 Creatinine 1.51 H Est Cr Clr Drug Dosing 55.3 Est GFR ( Amer) 51.6 Est GFR (Non-Af Amer) 44.5 BUN/Creatinine Ratio 11.9 Glucose 166 H POC Glucose Estimat Average Glucose 186 Hemoglobin A1c 8.1 H Calcium 8.1 L Magnesium 1.7 L 04/27/19 05:48 WBC RBC Hgb Hct MCV MCH MCHC RDW Std Deviation RDW Coeff of Kacy Plt Count MPV Immature Gran % (Auto) Neut % (Auto) Lymph % (Auto) [place] % (Auto) Eos % (Auto) Baso % (Auto) Immature Gran # (Auto) Neut # (Auto) Lymph # (Auto) [place] # (Auto) Eos # (Auto) Baso # (Auto) Sodium Potassium Chloride Carbon Dioxide Anion Gap BUN Creatinine Est Cr Clr Drug Dosing Est GFR ( Amer) Est GFR (Non-Af Amer) BUN/Creatinine Ratio Glucose POC Glucose 190 H Estimat Average Glucose Hemoglobin A1c Calcium Magnesium
--- NOTE | 2019-04-27 18:05 | Discharge Summary ---
Date of Service April 27, 2019 Admission HPI Per Admitting Provider CHIEF COMPLAINT: Right flank pain. HISTORY OF PRESENT ILLNESS: This is a 73-year-old male with past medical history significant for diabetes, hypercholesterolemia, right bundle-branch block, chronic low back pain, history of gout, history of kidney stones. Comes because of right flank pain and found to have 5-mm right kidney stone. The pain started yesterday late in the afternoon, severe in nature, in the right flank region and radiated somewhat into groins, also some nausea. Denies any fever, chills. No burning micturition, no hematuria. Normal bladder movements. Normal bowel movements. No blood in the stools. No chest pain, no shortness of breath, no cough, no headache, no blurred visions. Appetite is okay. No difficulty swallowing. Lives with his . Ambulates okay. Currently resting comfortable and hemodynamically stable. ALLERGIES: No known drug allergies. PAST MEDICAL HISTORY: As mentioned above. PAST SURGICAL HISTORY: Cystoscopy and lumbar spine injections. MEDICATIONS: The patient is on atorvastatin 20 mg p.o. daily, allopurinol 100 mg p.o. daily, glipizide 5 mg p.o. daily, potassium citrate 10 mEq daily, Tylenol p.r.n., vitamin D 1000 units p.o. daily, doxepin 75 mg p.o. at bedtime. FAMILY HISTORY: Significant for father had heart disorder. Mother has kidney stones. SOCIAL HISTORY: , quit smoking in 2012, prior to that smoked half pack a day for 40 years. No alcohol use, no drug use. REVIEW OF SYMPTOMS: As per HPI. Rest of the review of symptoms negative. Admission Exam Per Admitting Provider PHYSICAL EXAMINATION: GENERAL: The patient is of moderate build, not in acute distress. VITAL SIGNS: Temperature 36.6, pulse 88, respiratory rate 18, blood pressure 156/87, oxygen 92% on room air. HEENT: No pallor, no icterus. Pupils equal, round, and reactive to light. NECK: No JVD, no neck masses, no carotid bruit. CARDIOVASCULAR: S1, S2 heard, regular rate and rhythm, no murmur, no gallop. RESPIRATORY SYSTEM: Normal AP diameter. No accessory muscle use. No wheezing, no crackles. ABDOMEN: Soft, bowel sounds present. Mild right CVA tenderness present. No guarding, no rigidity, no distention. CENTRAL NERVOUS SYSTEM: Cranial nerves II-XII grossly intact. Nonfocal. EXTREMITIES: No edema, no erythema. Principal Diagnosis RIGHT URETERAL STONE Discharge Exam General- oriented x 3, not in distress, speaks in sentences with no effort or accessory muscle use Eyes- anicteric Neck- no JVD Lungs- clear breath sounds bilaterally Heart- normal rate, regular rhythm; no murmurs Abdomen- normal bowel sounds, nondistended, soft, nontender No CVA tenderness Extremities- no pretibial edema, no calf tenderness Neuro- alert, oriented x 3; no gross focal neurologic deficits Skin- warm & dry Discharge Data Allergies Allergy/AdvReac Type Severity Reaction Status Date / Time No Known Allergies Allergy Unverified 04/26/19 01:27 Consultations 04/26/19 02:50 ED Decision to Admit Stat 04/26/19 04:48 Consult Urology Routine Ordered Studies 04/26/19 00:24 CT abd pelvis wo con Urgent CT abd pelvis wo con CT DOSE: 2041.65 mGy.cm HISTORY: Flank pain R flank pain TECHNIQUE: Multiaxial CT images of the abdomen and pelvis were performed without contrast. A dose lowering technique was utilized adhering to the principles of ALARA. COMPARISON STUDY: 11/26/2014 FINDINGS: Minimal dependent basilar atelectasis. Gallbladder is filled with gallstones and slightly contracted. The liver spleen and pancreas are unremarkable. The obstructing calculus in prior examination is no longer present. There are bilateral renal cysts. There is a 4 mm hyperdense cortical cyst in left kidney unchanged. There is moderate atrophy and cortical substance loss the right kidney. There is right hydroureteronephrosis with evidence for an obstructing calculus measuring 5 mm at approximately the level of the inferior right sacroiliac joint. A small associated 2 mm calculus may be present. Bladder is midline. There is a 2 mm calcification posterior aspect of the bladder. Bowel pattern is remarkable for scattered colonic diverticulosis. There is no evidence of diverticulitis. The appendix is normal. IMPRESSION: 1. 5 mm obstructing calculus distal right ureter. 2. Moderate right hydroureteronephrosis. 3. Renal cysts stable from the prior study. 4. Potential small associated 2 mm calculus distal right ureter adjacent to the 5 mm calculus. 5. Scattered colonic diverticulosis. 6. Normal appendix. Hospital Course (1) Ureteral stone: ASSESSMENT AND PLAN: This is a 73-year-old male who presents with right flank pain and found to have a kidney stone. 1. Right Ureteral Stone, 5 mm with hydroureteronephrosis - evaluated by Urology service- [facility] physicians group Given tamsulosin, IV fluids, analgesics -Urine was strained, no stone noted Patient much improved clinically, declined any urologic intervention at this time Cleared by urology service for discharge, recommend continue tamsulosin, cefuroxime 500 mg twice a day to complete 7 days of antibiotic treatment, for possible UTI, tramadol 50 mg every 6 as needed for pain Follow-up with urology service as scheduled Follow-up with primary care physician May 02Wednesday 10:05 AM, Dr. Mojica 2. Possible Urinary tract infection Urinalysis suggestive of UTI, urine cultures pending Discharge on cefuroxime 500 mg twice a day to complete 7 days of antibiotic treatment 3. History of diabetes. A1c 8, continue usual regimen Follow-up as an outpatient 4. History of hyperlipidemia. Continue statin. 5. Deep vein thrombosis prophylaxis, sequential compression devices for now. 6. Disposition: Discharge to home today Follow-up with PCP as outlined above Follow-up with urology as scheduled Total Time Total Time Spent Total Time Spent (In Minutes): 40 minutes Discharge Plan Discharge Items Patient Disposition: Home - Self-Care Reason For Visit: RENAL COLIC Discharge Diagnosis: URETERAL STONE Discharge Goals: Decrease discomfort, Diagnostic testing and Therapeutic intervention Activity: As commented below Activity Comment: RESUME ACTIVITY GRADUALLY TOLERATED Lifting: Wait until after follow-up appointment Exercise/Sports: Wait until after follow-up appointment Driving/Machine Use Comment: NO DRIVING UNTIL RE-EVALUATED BY PRIMARY CARE DOCTOR, WHILE TAKING TRAMADOL Non-emergency contact: Primary Care Provider and Urologist Call non-emergency contact if: you have any medication questions, your symptoms worsen, your pain is not controlled, your pain is worsening, your pain is unusual for you, your pain is concerning for you and you have a fever Diet: Carb Consistent or DM2 and Heart Healthy Addtl Provider Instructions: PLEASE FOLLOW UP WITH UROLOGIST SCHEDULED. FOLLOW UP WITH PRIMARY CARE PHYSICIAN DR. MOJICA (ASSOCIATE OF DR. KEE) ON MAY 02, 2019 AT 10:05 AM. STAY WELL HYDRATED. CALL UROLOGIST/PRIMARY CARE PHYSICIAN OR RETURN TO THE ER IMMEDIATELY IF WITH RECURRENCE/WORSENING OF SYMPTOMS, FEVER/CHILLS, ABDOMINAL PAIN, PAIN/BLEEDING/PROBLEMS WITH URINATION. Prescriptions: New tamsulosin 0.4 mg Capsule 0.4 mg PO HS 30 Days Qty: 30 RF: 1 tramadol 50 mg tablet 50 mg PO Q6H PRN (Reason: pain) Qty: 10 RF: 0 cefuroxime axetil 250 mg tablet 250 mg PO BID 7 Days Qty: 14 RF: 0 Continued atorvastatin 20 mg Tablet 20 mg PO DAILY RF: 0 doxepin 75 mg Capsule 75 mg PO HS RF: 0 glipizide 5 mg Tablet Extended Release 24hr 5 mg PO DAILY RF: 0 allopurinol 100 mg Tablet 100 mg PO DAILY RF: 0 potassium citrate 5 mEq (540 mg) Tablet Extended Release 5 meq PO DAILY RF: 0 cholecalciferol (vitamin D3) [Vitamin D3] 1,000 unit Tablet 1,000 unit PO DAILY RF: 0 [facility] 7,160 unit- 113 mg-1 mg Tablet 1 tab PO DAILY RF: 0 Stand-Alone Forms: [facility] Discharge Orders: Discharge Order (Routine); Ordered 04/27/19 Ordered By: Yusuf Willard Admission Data Admit Date/Time: 04/26/19 03:32 Attending Provider: Yusuf Willard Admit Provider: Chris Lyon Primary Care Provider: Connor Kee Other Providers: Chris Lyon ; Topher Roldan I. Service: Medical Other Interventions: Discharge Summary Assessment (RN) Last Done: 04/27/19 11:17 DC Date/Time DO NOT enter until pt leaves facility: 04/27/19 11:45
== END 2019-04-27 11:45 | disposition home or self-care (01) | DRG 690 ==
LOC: ED 23:54 → 4E 04-26 03:32

== ENCOUNTER 2021-02-04 14:59 | Observation (INO) ==
[2021-02-04] MEDS ORDERED: MoRPHine SULFATE 4 MG/ML 1 ML CARP\\VIAL IV STA (15:46)
[2021-02-04] MEDS ORDERED: SODIUM CHLORIDE 0.9% 1000ML 1,000 ML IV ONE (15:46)
--- NOTE | 2021-02-04 15:51 | Emergency Department Note ---
Impression & Plan Acute appendicitis, UTI (urinary tract infection), Abdominal pain, Leukocytosis ED Provider Note NAME: JANEE PLUMMER III AGE: 75 SEX: M : 1945 ARRIVES VIA: Walk-In INFORMANT: Patient ED PROVIDER(S): Tong Navarro DO CHIEF COMPLAINT: Right lower quadrant abdominal pain HPI: Patient is a 75-year-old male who presents to ER for right lower quadrant abdominal pain. This started earlier this morning. Associate with nausea and one episode of vomiting. History of kidney stones and notes that this feels similar. No movement in the pain other than it started in the epigastric region and now is focal in the right lower quadrant. Pressure makes it significantly worse. Denies any dysuria urgency or frequency. No hematuria. No other exacerbating or remitting factors. No fevers. ROS: See above HPI for pertinent positives & negatives. A total of 10 systems reviewed and were otherwise negative. PAST MEDICAL HISTORY:See Below PAST SURGICAL HISTORY:See Below FAMILY HISTORY:See Below SOCIAL HISTORY:See Below HOME MEDICATIONS:See Below ALLERGIES:See Below VITALS:See Below PHYSICAL EXAMINATION: GENERAL: Sitting up in bed, alert, well appearing, well nourished, no distress, non-toxic EYE EXAM: normal conjunctiva. [PERRL and EOM's grossly intact.] OROPHARYNX: no exudate, no erythema, lips, buccal mucosa, and tongue normal and mucous membranes are moist NECK: supple, no nuchal rigidity, no adenopathy, non-tender LUNGS: Clear to auscultation. Normal chest wall mechanics HEART: no murmurs, S1 normal and S2 normal ABDOMEN: abdomen soft, tender palpation right lower quadrant, normo-active bowel sounds, no masses, no rebound or guarding. BACK: Back is symmetrical on inspection and there is no deformity, no midline tenderness, no CVA tenderness. SKIN: no rashes and no bruising UPPER EXTREMITIES: upper extremities are grossly normal. LOWER EXTREMITIES: No pitting edema. NEURO EXAM: Normal sensorium, cranial nerves II-XII grossly intact, normal speech, no gross weakness of arms, no gross weakness of legs. MEDICAL DECISION MAKING: Patient is a 75-year-old male who presents ER for abdominal pain. Initially started epigastric and now is in the right lower quadrant. He is acutely tender. IV was established blood work obtained. Labs show a leukocytosis of 13,000. No significant anemia. BMP was fairly unremarkable. LFTs bilirubin was unremarkable. Lipase was normal. UA with nitrates whites and bacteria as well as leukocytes. Is consistent with UTI. Patient was given IV cefoxitin secondary to the appendicitis which would likely cover UA will need to send for culture. Discussed with general surgery and patient was admitted for acute appendicitis and will likely go to the OR. Covid was negative. Patient was updated bedside. Patient was given morphine but declined any other doses. Triage Nursing notes reviewed. Limited review of prior medical records performed Vital Signs: reviewed and remarkable for tachy Differential diagnosis: Differential diagnoses includes but is not limited to gastritis, peptic ulcer disease, GERD, gallbladder disease, pancreatitis, small bowel obstruction, acute coronary syndrome, pericarditis, ischemic bowel, irritable bowel disease, irritable bowel syndrome, appendicitis, diverticulitis, malignancy, hernia, urinary tract infection, torsion, perforation, trauma, infectious. ER treatment provided: See below Diagnostics interpreted by me: ECG: none Cardiac Monitoring: An order was placed for continuous cardiac monitoring. The monitor shows a rate of 95 with sinus rhythm. Laboratory studies: As stated above and show below. Imaging studies: CT abdomen pelvis shows acute appendicitis Consultation(s): Discussed with Suyapa from general surgery Procedures: none Critical Care: None Past Med/Surg History Medical History History of back problems Kidney stone Surgical History History of ureter stent (10/19/14) Social History Smoking Status: Never smoker Hx Alcohol Use: No Hx Substance Use: No Preferred Language: Irish Communication Ability: Effective Recreation Facilities Supervisor Required: No Beliefs That Will Affect Care: None Current Living Situation: Spouse Feels Safe at Home: Yes Assistive Devices: Glasses Allergies Allergies Allergy/AdvReac Type Severity Reaction Status Date / Time No Known Allergies Allergy Verified 02/04/21 16:58 Home Meds Home Medications Medication Instructions Recorded Confirmed Mac[facility] 1 tab PO QAM 04/26/19 02/04/21 atorvastatin 20 mg PO HS 04/26/19 02/04/21 cholecalciferol (vitamin D3) 1,000 unit PO QAM 04/26/19 02/04/21 [Vitamin D3] glipizide 5 mg PO QAM 04/26/19 02/04/21 cinnamon bark 500 mg PO HS 02/04/21 02/04/21 doxepin 75 mg PO HS 02/04/21 02/04/21 glucosamine-chondroitin 30 ml PO HS 02/04/21 02/04/21 Previous Rx's Medication Instructions Recorded allopurinol 100 mg tablet 100 mg PO BID #180 tab 01/23/21 Results & Data (ED) Vital Signs Vital Signs - 24 hr 02/04/21 15:15 02/04/21 15:48 02/04/21 15:50 Temperature 36.9 C Temperature Source Temporal Artery Scan Pulse Rate 105 H 104 H 103 H Pulse Rate from SpO2 Sensor 103 H 103 H Respiratory Rate 17 23 24 Respiratory Effort / Characteristics Non-Labored Spontaneous Respiratory Depth Normal Respiratory Pattern Regular Blood Pressure 130/71 147/100 H Blood Pressure Mean 90 115 Blood Pressure Position Sitting Pulse Oximetry 97 96 96 Oxygen Delivery Method Room Air Sepsis Recent Fever Within 48 Hours No Sepsis New/Unexplained Change in Mental Status No Sepsis Action Taken by Nursing No Action Required 02/04/21 16:00 02/04/21 16:30 Temperature Temperature Source Pulse Rate 100 H 97 H Pulse Rate from SpO2 Sensor 100 H 97 H Respiratory Rate 22 24 Respiratory Effort / Characteristics Respiratory Depth Respiratory Pattern Blood Pressure 143/80 H 148/78 H Blood Pressure Mean 101 101 Blood Pressure Position Pulse Oximetry 95 96 Oxygen Delivery Method Sepsis Recent Fever Within 48 Hours Sepsis New/Unexplained Change in Mental Status Sepsis Action Taken by Nursing Laboratory Data Result diagrams: 02/04/21 15:46 02/04/21 15:46 Lab Results 02/04/21 02/04/21 02/04/21 Range/Units 15:46 15:46 15:50 WBC 13.08 H (4.8-10.8) K/uL RBC 5.02 (4.7-6.1) M/uL Hgb 15.2 (14.0-18.0) g/dL Hct 43.0 (42-52) % MCV 85.7 (80-100) fL MCH 30.3 (25-34) pg MCHC 35.3 (32-36) g/dL RDW Std Deviation 44.6 (36.4-46.3) fL RDW Coeff of Kacy 14.3 (11.5-14.5) % Plt Count 214 (130-400) K/uL MPV 9.6 (7.4-10.4) fL Immature Gran % (Auto) 0.3 % Neut % (Auto) 88.7 % Lymph % (Auto) 4.4 % Smith % (Auto) 5.2 % Eos % (Auto) 1.3 % Baso % (Auto) 0.1 % Neut # (Auto) 11.60 H (1.4-6.5) K/uL Lymph # (Auto) 0.58 L (1.2-3.4) K/uL Smith # (Auto) 0.68 H (0.11-0.59) K/uL Eos # (Auto) 0.17 (0-0.5) K/uL Baso # (Auto) 0.01 (0-0.2) K/uL Immature Gran # (Auto) 0.04 H (0.00-0.02) K/uL Sodium 136 (136-145) mmol/L Potassium 3.8 (3.5-5.1) mmol/L Chloride 103 (98-107) mmol/L Carbon Dioxide 28 (21-32) mmol/L Anion Gap 5.0 (3-11) BUN 16 (7-18) mg/dl Creatinine 1.40 (0.6-1.4) mg/dl Est Cr Clr Drug Dosing Not Reportable Est GFR ( Amer) 55.8 Est GFR (Non-Af Amer) 48.1 BUN/Creatinine Ratio 11.6 (10-20) Glucose 193 H (70-99) mg/dl Calcium 9.6 (8.5-10.1) mg/dl Total Bilirubin 0.8 (0.2-1) mg/dl AST 9 L (15-37) U/L ALT 21 (12-78) U/L Alkaline Phosphatase 121 H (45-117) U/L Total Protein 7.7 (6.4-8.2) gm/dl Albumin 4.1 (3.4-5.0) gm/dl Globulin 3.6 (2.5-4.0) gm/dl Albumin/Globulin Ratio 1.1 (0.9-2) Lipase 118 (73-393) U/L Urine Color Yellow Urine Appearance Clear (Clear) Urine pH 5.0 (4.5-7.5) Ur Specific [place] >= 1.030 (1.000-1.030) Urine Protein Negative (Negative) Urine Glucose (UA) 2+ H (Negative) Urine Ketones Negative (Negative) Urine Blood Trace-intact H (Negative) Urine Nitrite Positive A (Negative) Urine Bilirubin Negative (Negative) Urine Urobilinogen Negative (Negative) Ur Leukocyte Esterase Trace H (Negative) Urine RBC 0-4 (0-4) /hpf Urine WBC 10-30 H (0-5) /hpf Ur Epithelial Cells 5-10 H (0-5) /lpf Urine Bacteria 1+ H (Negative) COVID-19 Eval Order SARS-CoV-2 (PCR) (Negative) Influenza Type A (PCR) (Neg) Influenza Type B (PCR) (Neg) RSV (RT-PCR) (Neg) 02/04/21 02/04/21 Range/Units 18:10 18:10 WBC (4.8-10.8) K/uL RBC (4.7-6.1) M/uL Hgb (14.0-18.0) g/dL Hct (42-52) % MCV (80-100) fL MCH (25-34) pg MCHC (32-36) g/dL RDW Std Deviation (36.4-46.3) fL RDW Coeff of Kacy (11.5-14.5) % Plt Count (130-400) K/uL MPV (7.4-10.4) fL Immature Gran % (Auto) % Neut % (Auto) % Lymph % (Auto) % Smith % (Auto) % Eos % (Auto) % Baso % (Auto) % Neut # (Auto) (1.4-6.5) K/uL Lymph # (Auto) (1.2-3.4) K/uL Smith # (Auto) (0.11-0.59) K/uL Eos # (Auto) (0-0.5) K/uL Baso # (Auto) (0-0.2) K/uL Immature Gran # (Auto) (0.00-0.02) K/uL Sodium (136-145) mmol/L Potassium (3.5-5.1) mmol/L Chloride (98-107) mmol/L Carbon Dioxide (21-32) mmol/L Anion Gap (3-11) BUN (7-18) mg/dl Creatinine (0.6-1.4) mg/dl Est Cr Clr Drug Dosing Est GFR ( Amer) Est GFR (Non-Af Amer) BUN/Creatinine Ratio (10-20) Glucose (70-99) mg/dl Calcium (8.5-10.1) mg/dl Total Bilirubin (0.2-1) mg/dl AST (15-37) U/L ALT (12-78) U/L Alkaline Phosphatase (45-117) U/L Total Protein (6.4-8.2) gm/dl Albumin (3.4-5.0) gm/dl Globulin (2.5-4.0) gm/dl Albumin/Globulin Ratio (0.9-2) Lipase (73-393) U/L Urine Color Urine Appearance (Clear) Urine pH (4.5-7.5) Ur Specific [place] (1.000-1.030) Urine Protein (Negative) Urine Glucose (UA) (Negative) Urine Ketones (Negative) Urine Blood (Negative) Urine Nitrite (Negative) Urine Bilirubin (Negative) Urine Urobilinogen (Negative) Ur Leukocyte Esterase (Negative) Urine RBC (0-4) /hpf Urine WBC (0-5) /hpf Ur Epithelial Cells (0-5) /lpf Urine Bacteria (Negative) COVID-19 Eval Order CovFluRsv at [facility] SARS-CoV-2 (PCR) NEGATIVE (Negative) Influenza Type A (PCR) Negative (Neg) Influenza Type B (PCR) Negative (Neg) RSV (RT-PCR) Negative (Neg) Administered Medications Discontinued Medications Sodium Chloride (Nss 1000ml) 1,000 mls @ 999 mls/hr IV .Q1H1M ONE Stop: 02/04/21 16:46 Last Infusion: 02/04/21 17:01 Dose: 0 mls/hr Documented by: [id number] Admin: 02/04/21 15:56 Dose: 999 mls/hr Documented by: [id number] Cefoxitin Sodium (Mefoxin) 2,000 mg in 60 mls @ 100 mls/hr IV NOW STA Stop: 02/04/21 18:39 Last Admin: 02/04/21 19:00 Dose: 100 mls/hr Documented by: [id number] Ioversol (Ioversol 100ml) 90 ml IV ONCE ONE Stop: 02/04/21 17:33 Last Admin: 02/04/21 17:33 Dose: 90 ml Documented by: [id number] Morphine Sulfate (Morphine Sulfate 4 Mg/Ml 1 Ml Carp\Vial) 4 mg IV NOW STA Stop: 02/04/21 15:47 Last Admin: 02/04/21 15:56 Dose: 4 mg Documented by: [id number] Discharge Plan Visit Data Chief Complaint: Kidney Stone Stated Complaint: RIGHT SIDE PAIN/POSSIBLE KIDNEY STONE ED Provider: Tong Navarro Discharge Problem: Acute appendicitis, UTI (urinary tract infection), Abdominal pain, Leukocytosis Forms Stand Alone Forms: [employer] Prescriptions Prescriptions: No Action allopurinol 100 mg tablet 100 mg PO BID Qty: 180 RF: 3 atorvastatin 20 mg Tablet 20 mg PO HS RF: 0 glipizide 5 mg Tablet Extended Release 24hr 5 mg PO QAM RF: 0 cholecalciferol (vitamin D3) [Vitamin D3] 1,000 unit Tablet 1,000 unit PO QAM RF: 0 [facility] 7,160 unit- 113 mg-1 mg Tablet 1 tab PO QAM RF: 0 glucosamine-chondroitin 1,500-1,200 mg/30 mL Liquid 30 ml PO HS RF: 0 cinnamon bark 500 mg Capsule 500 mg PO HS RF: 0 doxepin 75 mg capsule 75 mg PO HS RF: 0 Discharge Problem: Acute appendicitis Qualifiers: Acute appendicitis type: unspecified acute appendicitis type Qualified Code(s): K35.80 - Unspecified acute appendicitis UTI (urinary tract infection) Qualifiers: Urinary tract infection type: site unspecified Hematuria presence: with hematuria Qualified Code(s): N39.0 - Urinary tract infection, site not specified Abdominal pain Qualifiers: Abdominal location: unspecified location Qualified Code(s): R10.9 - Unspecified abdominal pain Leukocytosis Qualifiers: Leukocytosis type: unspecified Qualified Code(s): D72.829 - Elevated white blood cell count, unspecified
[2021-02-04 16:05] LABS: Basophils # (auto) 0.01 K/uL (0-0.2); Basophils % (auto) 0.1 %; Eosinophils # (auto) 0.17 K/uL (0-0.5); Eosinophils % (auto) 1.3 %; Hemoglobin 15.2 g/dL (14.0-18.0); Immature Granulocytes # (auto) 0.04 K/uL (0.00-0.02); Immature Granulocytes % (auto) 0.3 %; Lymphocytes # (auto) 0.58 K/uL (1.2-3.4); Lymphocytes % (auto) 4.4 %; Mean Corpuscular Hemoglobin 30.3 pg (25-34); Mean Corpuscular Hgb Conc 35.3 g/dL (32-36); Mean Corpuscular Volume 85.7 fL (80-100); Mean Platelet Volume 9.6 fL (7.4-10.4); Monocytes # (auto) 0.68 K/uL (0.11-0.59); Monocytes % (auto) 5.2 %; Neutrophils % (auto) 88.7 %; Platelet Count 214 K/uL (130-400); RDW Coefficient of Variation 14.3 % (11.5-14.5); RDW Standard Deviation 44.6 fL (36.4-46.3); Red Blood Count 5.02 M/uL (4.7-6.1); White Blood Count 13.08 K/uL (4.8-10.8)
[2021-02-04 16:22] LABS: Alanine Aminotransferase 21 U/L (12-78); Albumin Level 4.1 gm/dl (3.4-5.0); Aspartate Aminotransferase 9 U/L (15-37); BUN Creatinine Ratio 11.6 (10-20); Blood Urea Nitrogen 16 mg/dl (7-18); Calcium 9.6 mg/dl (8.5-10.1); Carbon Dioxide 28 mmol/L (21-32); Chloride 103 mmol/L (98-107); Est GFR (African American) 55.8; Est GFR (Non-African American) 48.1; Glucose 193 mg/dl (70-99); Lipase 118 U/L (73-393); Potassium 3.8 mmol/L (3.5-5.1); Sodium 136 mmol/L (136-145)
[2021-02-04 16:25] LABS: Albumin Globulin Ratio 1.1 (0.9-2); Alkaline Phosphatase 121 U/L (45-117); Bilirubin,Total 0.8 mg/dl (0.2-1); Globulin 3.6 gm/dl (2.5-4.0); Total Protein 7.7 gm/dl (6.4-8.2)
[2021-02-04 16:58] LABS: Appearance Urine Clear (Clear); Bilirubin Urine Negative (Negative); Blood Urine Trace-intact (Negative); Color Urine Yellow; Glucose Urine UA 2+ (Negative); Ketones Urine Negative (Negative); Leukocyte Esterase Urine Trace (Negative); Nitrite Urine Positive (Negative); Protein Urine Negative (Negative); Specific Gravity Urine >= 1.030 (1.000-1.030); Urobilinogen Urine Negative (Negative)
[2021-02-04 17:18] LABS: Bacteria Urine 1+ (Negative)
[2021-02-04 17:19] LABS: RBC Urine 0-4 /hpf (0-4)
[2021-02-04] MEDS ORDERED: OPTIRAY 320 100ml IV ONE (17:32)
--- NOTE | 2021-02-04 18:02 | CT Scan Report ---
ABDOMEN AND PELVIS CT WITH IV CONTRAST CT DOSE: 1495.92 mGy.cm HISTORY: rlq abd pain TECHNIQUE: Multiaxial CT images of the abdomen and pelvis were performed following the use of intrave nous contrast. A dose lowering technique was utilized adhering to the principles of ALARA. COMPARISON STUDY: Abdomen and pelvis CT 06/27/2019. FINDINGS: The lung bases are clear. No pneumoperitoneum. No pneumatosis. No suspicious lytic or blast ic osseous lesions. A 3 cm diverticulum at the second portion of the duodenum. The prostate gland is mildly enlarged. The bladder is mildly distended. No bladder wall thickening. Distended and thick-wal led appendix with periappendiceal fat stranding consistent with acute appendicitis. The appendix is f luid-filled and measures up to 1.6 cm in diameter. No perforation or abscess identified at this time. No dilated loops of small bowel to suggest an obstruction. Cholelithiasis. No gallbladder wall thick ening. The liver, spleen, adrenal glands, and pancreas unremarkable. Moderate right renal atrophy is again noted. Multiple bilateral renal hypodense lesions. These likely represent cysts. No hydronephro sis. No retroperitoneal lymphadenopathy. Colonic diverticulosis. No evidence for acute diverticulitis . A few punctate calcifications again noted within the pancreas. IMPRESSION: 1. Acute appendicitis. No perforation or abscess. 2. Cholelithiasis. No gallbladder wall thickening. 3. Colonic diverticulosis. 4. Atrophic right kidney, unchanged. 5. Additional findings as described above. ACT 112: Negative or not required by law. Electronically signed by: Keven Pereira M.D. 02/04/2021 6:00 PM
[2021-02-04] MEDS ORDERED: cefOXitin 2,000 MG/60 ML BAG IV STA (18:04)
--- NOTE | 2021-02-04 18:38 | XRay Report ---
XR chest 1V portable HISTORY: Shortness of breath. Resp sx c/w COVID-19 COMPARISON: Chest 10/18/2014. FINDINGS: No pneumothorax. No pleural effusions. Mild diffuse interstitial thickening which is likely chronic. No focal lung consolidations to suggest pneumonia. The heart remains mildly enlarged. No ev idence for pulmonary edema. IMPRESSION: Stable mild cardiomegaly. No focal lung consolidations to suggest pneumonia. ACT 112: Negative or not required by law. Electronically signed by: Keven Pereira M.D. 02/04/2021 6:36 PM
[2021-02-04 18:59] LABS: Influenza A virus by PCR Negative (Neg); Influenza B virus by PCR Negative (Neg); RSV by PCR Negative (Neg); SARS CoV2 RNA(COVID-19) InHosp NEGATIVE (Negative)
--- NOTE | 2021-02-04 19:12 | History & Physical Report ---
Date of Service February 04, 2021 Assessment & Plan (1) Acute appendicitis: We will plan the following interventions: Provide analgesics Provide antiemetics Administer antibiotics. The patient has received a dose of cefoxitin in the emergency department Keep the patient n.p.o. We will plan on taking the patient the operating room this evening for an appendectomy. I have outlined the procedure with him including the risks and benefits and he agrees to proceed. Additional recommendations will be forthcoming based on operative findings History of Present Illness Chief Complaint: Appendicitis Primary Care Provider: Connor Kee MD Is a 75-year-old male who was in his usual state of health yesterday feeling fine. Earlier this morning the patient developed periumbilical abdominal pain that radiated to his right lower quadrant. He denies any fevers, shakes, chills. He did have associated nausea vomiting and reports a poor appetite. Because the pain did not improve throughout the day he presented to the emergency department. He notes with certain movements and with palpation of his abdomen the pain is worse. He does not report any palliative factors. He denies ever having any surgeries on his abdomen before. He notes his most recent oral intake was at approximately 10:30 AM this morning. The patient had labs and imaging which I independently reviewed in the emergency department. He did have a chest x-ray that showed no evidence of pneumonia. He had a CT scan of the abdomen that showed findings concerning for acute appendicitis. CBC revealed a white blood cell count of 13.0. His hemoglobin and hematocrit within normal range as was his platelet count. Chemistry profile revealed sodium, potassium, BUN, and creatinine were all within the normal range. A Covid test was performed and was noted to be negative. An EKG showed a right bundle branch block. The patient notes that when he is feeling well he is active. He says that he is able to walk on flat grades without chest pain or shortness of breath. He also says he can walk up 2 flights of steps without any chest pain or shortness of breath. At the time of my interview the patient was resting comfortably in no distress. Allergies Allergy/AdvReac Type Severity Reaction Status Date / Time No Known Allergies Allergy Verified 02/04/21 16:58 Home Medications Medication Instructions Recorded Confirmed Type [facility] 1 tab PO QAM 04/26/19 02/04/21 History atorvastatin 20 mg PO HS 04/26/19 02/04/21 History cholecalciferol (vitamin D3) 1,000 unit PO QAM 04/26/19 02/04/21 History [Vitamin D3] glipizide 5 mg PO QAM 04/26/19 02/04/21 History allopurinol 100 mg tablet 100 mg PO BID #180 tab 01/23/21 02/04/21 Rx cinnamon bark 500 mg PO HS 02/04/21 02/04/21 History doxepin 75 mg PO HS 02/04/21 02/04/21 History glucosamine-chondroitin 30 ml PO HS 02/04/21 02/04/21 History Past Med/Surg History Medical History History of back problems Kidney stone Surgical History History of ureter stent (10/19/14) Social History Smoking Status: Never smoker Hx Alcohol Use: No Hx Substance Use: No Preferred Language: Beninese Communication Ability: Effective Mine Safety Director Required: No Beliefs That Will Affect Care: None Current Living Situation: Spouse Feels Safe at Home: Yes Assistive Devices: Glasses Review of Systems Constitutional: no fever and no chills Eyes: no diplopia Ear, Nose, Mouth, Throat: no ear pain Respiratory: no cough and no dyspnea Cardiovascular: no chest pain Gastrointestinal: + abdominal pain, + nausea and + vomiting Genitourinary: no dysuria Musculoskeletal: no back pain Integumentary: no rash Neurologic: no localized weakness Physical Exam Constitutional: well developed and well nourished; no acute distress Eyes: no conjunctival abnormality Wears glasses ENMT: Ears: no hearing impairment Neck: trachea midline Respiratory: normal respiratory effort, lungs clear to auscultation Cardiovascular: Rate/Rhythm: regular rate and regular rhythm Gastrointestinal (Abdomen): Abdomen is rotund but soft. Patient did have marked pain in the right lower quadrant with palpation. He had minor rebound tenderness noted. Musculoskeletal: No calf tenderness Skin: no rashes, warm and dry Neurologic: moves all extremities Psychiatric: A+Ox3, euthymic affect Results & Data Results & Data ([facility]) Vital Signs (Past 12 Hours) Vital Signs Temp Pulse Resp BP Pulse Ox 02/04/21 16:30 97 H 24 148/78 H 96 02/04/21 16:00 100 H 22 143/80 H 95 02/04/21 15:50 103 H 24 96 02/04/21 15:48 104 H 23 147/100 H 96 02/04/21 15:15 36.9 C 105 H 17 130/71 97 Supervising Physician Co-Signing Physician Notes Seen and examined, labs and imaging reviewed, agree with above. 75-year-old male presented with periumbilical abdominal pain that migrated to the right lower quadrant. He had some nausea and a brief episode of emesis. On exam he is mildly tachycardic with a T-max of 37.8. His vital signs are otherwise normal. He is tender to palpation in the right lower quadrant with guarding. He does have a small umbilical hernia. Leukocytosis noted on labs, CT with dilated and inflamed appendix consistent with acute appendicitis. Acute appendicitis Plan for laparoscopic appendectomy The risk the procedure were discussed to include but not limited to bleeding, infection, normal appendix, need for future more extensive surgery, damage surrounding structures, conversion open, and the risk of anesthesia Preop antibiotics given in ER We will keep overnight, potential discharge in the morning PG Care Time/CCT Total # of Minutes Spent Total Time Spent with Patient: Total time spent is greater than 50% in coordination of care (as documented) at patient's floor/unit and/or counseling patient: Coding Level of Care Code 91879 OBS Care - Level 3 Diagnoses Acute appendicitis K35.80
[2021-02-04] MEDS ORDERED: BUPIVACAINE 0.5 % 5 MG/1 ML MPF 30ML VIAL ONE (19:14)
[2021-02-04] MEDS ORDERED: ROCURONIUM BROMIDE 10 MG/ML 5 ML VIAL IV ONE (20:16)
[2021-02-04] MEDS ORDERED: fentaNYL citrate 100 MCG/2 ML VIAL ONE ×4 (20:16→22:17)
[2021-02-04] MEDS ORDERED: ONDANSETRON INJ 2 MG/ML 2 ML VIAL ONE (20:16)
[2021-02-04] MEDS ORDERED: PROPOFOL IV EMULSION 10 MG/ML 20 ML VIAL IV ONE (20:16)
[2021-02-04] MEDS ORDERED: SUCCINYLCHOLINE 100MG/5ML SYR IV ONE (20:16)
[2021-02-04] MEDS ORDERED: DEXAMETHASONE SOD INJ 4 MG/ML VIAL ONE (20:16)
[2021-02-04] MEDS ORDERED: ePHEDrine sulfate 50 MG/ML AMP IV PRN (20:19)
[2021-02-04] MEDS ORDERED: fentaNYL citrate 100 MCG/2 ML VIAL IV PRN (20:19)
[2021-02-04] MEDS ORDERED: ONDANSETRON INJ 2 MG/ML 2 ML VIAL IV PRN ×2 (20:19→23:13)
[2021-02-04] MEDS ORDERED: ATROPINE SULFATE 0.1 MG/ML 10ML SYR IV PRN (20:19)
[2021-02-04] MEDS ORDERED: HYDROmorphone INJ 1 MG/ML SYRINGE IV PRN (20:19)
--- NOTE | 2021-02-04 20:21 | Anesthesiology Consultation ---
Date of Service February 04, 2021 Assessment & Plan (1) Encounter for pre-operative examination: Chart Review Chart Review: Acceptable Risk for Surgery and Patient NOT seen in Pre Admission Testing Consults Requested none History Surgery Operation Date: 02/04/21 20:00 Proposed Procedures p Laparoscopic Appendectomy, Possible Open - Saúl Hutchinson DO, FACS Height/Weight Height: 6 ft Weight: 122.47 kg Allergies Allergy/AdvReac Type Severity Reaction Status Date / Time No Known Allergies Allergy Verified 02/04/21 16:58 Medications Home Medications Medication Instructions Recorded Confirmed Last Taken Mac[facility] 1 tab PO QAM 04/26/19 02/04/21 02/03/21 atorvastatin 20 mg PO HS 04/26/19 02/04/21 02/03/21 cholecalciferol (vitamin D3) 1,000 unit PO QAM 04/26/19 02/04/21 02/03/21 [Vitamin D3] glipizide 5 mg PO QAM 04/26/19 02/04/21 02/04/21 allopurinol 100 mg tablet 100 mg PO BID #180 tab 01/23/21 02/04/21 02/03/21 cinnamon bark 500 mg PO HS 02/04/21 02/04/21 02/03/21 doxepin 75 mg PO HS 02/04/21 02/04/21 02/03/21 glucosamine-chondroitin 30 ml PO 02/04/21 02/04/21 02/03/21 NPO Date Last Intake of Fluids: 02/04/21 Time Last Intake of Fluids: 10:00 Date Last Intake of Solids: 02/04/21 Time Last Intake of Solids: 10:00 Past Medical History Medical History History of back problems Kidney stone Exercise / Class Metabolic Activity II 4-5 Yardwork/Stairs/Walk up hill Past Surgical History Surgical History History of ureter stent (10/19/14) Past Anesthesia History No Hx of Anesthesia Complications and No Family Hx of Anesthesia Complications History of PONV No Hx of PONV and No Hx of Motion Sickness Social History Smoking Status: Never smoker Do You Dip or Chew Tobacco: No Hx Alcohol Use: No Hx Substance Use: No Physical Exam Vital Signs Last Vital Signs Temp 37.8 C H 02/04/21 19:44 Pulse 110 H 02/04/21 19:44 Resp 18 02/04/21 19:44 BP 152/84 H 02/04/21 19:44 Pulse Ox 94 02/04/21 19:44 Testing Laboratory Results 02/04/21 15:46 02/04/21 15:46 Urine Color Yellow 02/04/21 15:50 Urine Appearance Clear (Clear) 02/04/21 15:50 Urine pH 5.0 (4.5-7.5) 02/04/21 15:50 Ur Specific [place] >= 1.030 (1.000-1.030) 02/04/21 15:50 Urine Protein Negative (Negative) 02/04/21 15:50 Urine Glucose (UA) 2+ (Negative) H 02/04/21 15:50 Urine Ketones Negative (Negative) 02/04/21 15:50 Urine Nitrite Positive (Negative) A 02/04/21 15:50 Ur Leukocyte Esterase Trace (Negative) H 02/04/21 15:50 Urine RBC 0-4 /hpf (0-4) 02/04/21 15:50 Urine WBC 10-30 /hpf (0-5) H 02/04/21 15:50 Ur Epithelial Cells 5-10 /lpf (0-5) H 02/04/21 15:50 Electrocardiogram Date: 02/04/21 Findings: + ST @ (105)
[2021-02-04] MEDS ORDERED: GLYCOPYRROLATE 0.2 MG/ML VIAL ONE (21:19)
[2021-02-04] MEDS ORDERED: NEOSTIGMINE METHYLSULFATE 5 MG/5 ML SYR ONE (21:19)
--- NOTE | 2021-02-04 21:34 | Operative Report ---
PG Post Operative Report Pre & Post Diagnosis Operation Date: 02/04/21 20:00 Pre-Op Diagnosis: Acute appendicitis Post-op diagnosis: Acute, perforated appendicitis with contained perforation I identified the patient and participated in the time-out.: Yes Procedure Operation Date: 02/04/21 20:00 Actual Procedures p Laparoscopic Appendectomy, ) - Saúl Hutchinson DO, KALIA Surgeon Saúl Hutchinson DO, FACS Mental Hygiene Consultant Steven Munguia Estimated Blood Loss 5 Findings Consistent with Post-Op Diagnosis Significant inflammation with some reactive turbid fluid in the right lower quadrant. Appendix with small contained perforation and midportion of appendix. No gross spillage or abscess. Healthy base, controlled with stapler. Harmonic scalpel used to divide mesoappendix. Good hemostasis. Irrigated with approximately 800 cc. Specimens Appendix Anesthesia Type General Complications none Disposition Accompanied Patient To Recovery: No Disposition: Recovery Room Indications 75-year-old male presented to the emergency department signs and symptoms of acute appendicitis confirmed a CT scan, plan for laparoscopic appendectomy, possible open. The risks of the procedure were discussed, all questions were answered, and the patient agreed to proceed with surgery as planned. Description of Procedure The patient was properly identified, consented, and taken to the operating room where he was placed in the supine position. General endotracheal anesthesia was induced. SCDs and a safety belt were placed. Preoperative antibiotics were administered. A White catheter was not placed. The patient's abdomen was prepped and draped in the standard sterile fashion. Surgical timeout was performed and all parties were in agreement that this was the correct patient and procedure to be performed and we continued as planned. Incision was made to the left of the umbilicus and the Veress needle was inserted. Saline drop test confirmed entry into the abdomen. The abdomen was insufflated with carbon dioxide which the patient tolerated without incident. The abdomen was entered using the Optiview technique. The laparoscope was inserted and no damage from Veress needle or initial trocar placement was noted, no gross abnormalities were noted within the 4 quadrants the abdomen. A 12 mm port was then placed in the left lower quadrant with care not to damage the epigastric vessels, and a 5 mm port was placed in the suprapubic midline with care not to damage the bladder. The patient was placed in Trendelenburg positio n and rotated towards the left. The small bowel was swept away from the right lower quadrant. There was some reactive turbid fluid in the right lower quadrant and pelvis. This was suctioned. There was some woody inflammation in the right lower quadrant in the expected area of the appendix. The cecum was grasped with an atraumatic grasper exposing the appendix. The ligament of Treves and some epiploica were densely adhesed to the appendix. These were gently teased away. There was a small contained perforation in the midportion along the antimesenteric border of the appendix. As the fat was peeled away this became evident. There was no gross spillage of stool and no abscess present. The appendix was moderate to significantly inflamed. A window was created between the base of the appendix and the mesoappendix, and the base was healthy. A arciniega loaded endoscopic stapler was then used to divide the appendix at its base. The harmonic scalpel was then used divide the mesoappendix. Hemostasis was good. The appendix was placed in an Endo Catch bag and removed through the umbilical port site. The right lower quadrant and pelvis was irrigated and hemostasis was found to be good. The Mook-Anoop device was utilized to close the left lower quadrant incision with 0 Vicryl suture. The remaining trochars were removed and the abdomen was allowed to collapse. The wound was irrigated, and the skin of all ports was closed with 4-0 Monocryl subcuticular sutures. Dermabond was placed over the wounds. The patient was extubated in the operating room and taken to the PACU where he recovered without apparent incident. All sponge, instrument and needle counts were correct at the conclusion of the procedure. The patient tolerated the procedure well. The physician's library technical assistant was present and scrubbed for the entire the case. He was critical in positioning the patient, prepping and draping, retraction and exposure, driving the laparoscope, closure the incisions, placement of the dressings. I attest to the content of the Intraoperative Record and any orders documented therein. Any exceptions are noted below.
[2021-02-04] MEDS ORDERED: MIDAZOLAM HCL 1 MG/ML 2ML VIAL ONE (21:39)
[2021-02-04] MEDS: fentaNYL citrate 100 MCG/2 ML VIAL IV PRN ×2 (22:18→22:23)
[2021-02-04] MEDS ORDERED: KETOROLAC 30 MG/ML VIAL ONE (22:34)
[2021-02-04] MEDS ORDERED: KETOROLAC TROMETHAMINE 15 MG/ML VIAL IV ONE (22:37)
[2021-02-04] MEDS ORDERED: MoRPHine SULFATE 4 MG/ML 1 ML CARP\\VIAL IV PRN (23:13)
[2021-02-04] MEDS ORDERED: PIPERACILL/TAZOBAC CONSULT ACTIVE PRN (23:13)
[2021-02-04] MEDS ORDERED: PIPERACILLIN/TAZOBACTAM 4.5 GM in DEXTROSE 5% 100 ML IV ONE (23:30)
[2021-02-04] MEDS ORDERED: PIPERACILLIN/TAZOBACTAM 3.375 GM in DEXTROSE 5% 100 ML IV ONE (23:30)
[2021-02-05] MEDS: LACTATED RINGER'S 1,000 ML IV SCH ×2 (00:09→05:57)
--- NOTE | 2021-02-05 00:09 | Anesthesiology Progress Note ---
Date of Service February 05, 2021 Anesthesia Post Procedure Vital Signs Vital Signs: Temp Pulse Pulse Pulse Resp BP BP 02/04/21 23:32 36.6 C 105 H 18 02/04/21 23:16 104 H 22 02/04/21 22:40 36.8 C 105 H 16 02/04/21 22:25 102 H 16 02/04/21 22:15 105 H 16 02/04/21 22:05 100 H 16 02/04/21 21:57 37.2 C 101 H 17 02/04/21 19:44 37.8 C H 110 H 18 152/84 H 02/04/21 19:01 107 H 24 155/89 H 02/04/21 19:00 107 H 21 02/04/21 18:30 101 H 20 02/04/21 18:00 97 H 18 02/04/21 17:40 102 H 20 02/04/21 16:30 97 H 24 148/78 H 02/04/21 16:00 100 H 22 143/80 H 02/04/21 15:50 103 H 24 02/04/21 15:48 104 H 23 147/100 H 02/04/21 15:15 36.9 C 105 H 17 130/71 BP Pulse Ox 02/04/21 23:32 120/72 94 02/04/21 23:16 121/68 89 L 02/04/21 22:40 170/82 H 94 02/04/21 22:25 168/84 H 94 02/04/21 22:15 163/92 H 94 02/04/21 22:05 169/87 H 91 02/04/21 21:57 158/84 H 92 02/04/21 19:44 94 02/04/21 19:01 02/04/21 19:00 02/04/21 18:30 02/04/21 18:00 95 02/04/21 17:40 96 02/04/21 16:30 96 02/04/21 16:00 95 02/04/21 15:50 96 02/04/21 15:48 96 02/04/21 15:15 97 Pain Intensity Right Abdomen: Pain Intensity: 6 Transfer of Care Handoff Completed per policy Notes Mental Status: alert / awake / arousable and participated in evaluation Patient Amnestic to Procedure: Yes Nausea / Vomiting: adequately controlled Pain: adequately controlled Airway Patency, RR, SpO2: stable & adequate BP & HR: stable & adequate Hydration State: stable & adequate Anesthetic Complications: no major complications apparent
[2021-02-05] MEDS: ACETAMINOPHEN 1,000 MG/100 ML VIAL IV SCH ×2 (00:10→09:21)
[2021-02-05] MEDS: PIPERACILLIN/TAZOBACTAM 4.5 GM in DEXTROSE 5% 100 ML IV SCH ×2 (03:52→11:48)
[2021-02-05] MEDS ORDERED: oxyCODONE HCL IR 5 MG TAB (IMMEDIATE RELEASE) PO PRN (08:55)
--- NOTE | 2021-02-05 08:58 | Surgery Progress Note ---
Date of Service February 05, 2021 Assessment & Plan (1) Acute appendicitis: POD#1 laparoscopic appendectomy Patient feeling well. VSS Will advance to regular diet today If starts voiding adequate amounts and tolerates a diet he can be discharged to home later today Will complete a course of abx at home for 1 week Follow up in clinic within 1-[address] Hutchinson Admission and Anticipated Discharge Date Admission Date: February 04, 2021 Supervising Physician Co-Signing Physician Notes Patient seen and examined, agree with above. POD #1 laparoscopic appendectomy for appendicitis with contained perforation. Feeling much better this morning. Has not had much of an appetite. He has been able to pee small amounts. He has ambulated. On exam he is afebrile with stable vitals. His abdomen is soft, mildly distended, incisions with Dermabond without evidence of infection. We will see how the patient does with his diet today as well as make sure he is urinating adequately. We will discharge him to home with 7 days of oral antibiotics due to the contained perforation. Reassess later today. Subjective Patient states he is feeling well. Tolerating liquids, but hasn't had anything to eat yet. Not complaining of pain. Voiding small amounts. Physical Exam Physical Exam: awake/alert Constitutional: no acute distress Gastrointestinal (Abdomen): Inspection/Auscultation: + abdominal surgical incision (c/d/i with dermabond overtop) Results & Data ([facility]) Vital Signs (Past 12 Hours) Vital Signs Temp Pulse Pulse Resp BP BP Pulse Ox 02/05/21 07:47 36.7 C 90 18 124/69 93 02/05/21 03:28 36.7 C 93 H 18 129/75 94 02/05/21 01:06 36.8 C 90 17 128/77 93 02/05/21 00:10 36.9 C 96 H 16 126/75 94 02/04/21 23:32 36.6 C 105 H 18 120/72 94 02/04/21 23:16 104 H 22 121/68 89 L 02/04/21 22:40 36.8 C 105 H 16 170/82 H 94 02/04/21 22:25 102 H 16 168/84 H 94 02/04/21 22:15 105 H 16 163/92 H 94 02/04/21 22:05 100 H 16 169/87 H 91 02/04/21 21:57 37.2 C 101 H 17 158/84 H 92 PG Care Time/CCT Total # of Minutes Spent Total Time Spent with Patient: Total time spent is greater than 50% in coordination of care (as documented) at patient's floor/unit and/or counseling patient: Coding Level of Care Code None Diagnoses Acute appendicitis K35.80 Acute appendicitis type: unspecified acute appendicitis type (1) Acute appendicitis Acute appendicitis type: unspecified acute appendicitis type Qualified Code(s): K35.80 - Unspecified acute appendicitis
[2021-02-05] MEDS ORDERED: allopurinoL 100 MG TAB PO SCH (09:00)
[2021-02-05] MEDS ORDERED: CHOLECALCIFEROL 1,000 UNITS 25 MCG TAB PO SCH (09:00)
[2021-02-05] MEDS: INSULIN ASPART 100 UNITS/ML 3 ML PEN SC SCH ×2 (09:36→12:51)
--- NOTE | 2021-02-05 14:34 | Electrocardiogram Report ---
Test Reason : Blood Pressure : / mmHG Vent. Rate : 105 BPM Atrial Rate : 105 BPM P-R Int : 204 ms QRS Dur : 122 ms QT Int : 362 ms P-R-T Axes : 049 043 011 degrees QTc Int : 478 ms Sinus tachycardia Right bundle branch block Abnormal ECG When compared with ECG of 26-APR-2019 07:22, No significant change was found Confirmed by Agus Kay ([id number]) on 02/05/2021 2:33:53 PM Referred By: REFERRED SELF Confirmed By:Agus Kay
[2021-02-05] MEDS ORDERED: DOXEPIN HCL 75 MG CAPSULE PO SCH (21:00)
[2021-02-05] MEDS ORDERED: ATORVASTATIN 20 MG TAB PO SCH (21:00)
--- NOTE | 2021-02-06 15:52 | Discharge Summary ---
Date of Service February 06, 2021 Admission HPI Per Admitting Provider Is a 75-year-old male who was in his usual state of health yesterday feeling fine. Earlier this morning the patient developed periumbilical abdominal pain that radiated to his right lower quadrant. He denies any fevers, shakes, chills. He did have associated nausea vomiting and reports a poor appetite. Because the pain did not improve throughout the day he presented to the emergency department. He notes with certain movements and with palpation of his abdomen the pain is worse. He does not report any palliative factors. He denies ever having any surgeries on his abdomen before. He notes his most recent oral intake was at approximately 10:30 AM this morning. The patient had labs and imaging which I independently reviewed in the emergency department. He did have a chest x-ray that showed no evidence of pneumonia. He had a CT scan of the abdomen that showed findings concerning for acute appendicitis. CBC revealed a white blood cell count of 13.0. His hemoglobin and hematocrit within normal range as was his platelet count. Chemistry profile revealed sodium, potassium, BUN, and creatinine were all within the normal range. A Covid test was performed and was noted to be negative. An EKG showed a right bundle branch block. The patient notes that when he is feeling well he is active. He says that he is able to walk on flat grades without chest pain or shortness of breath. He also says he can walk up 2 flights of steps without any chest pain or shortness of breath. At the time of my interview the patient was resting comfortably in no distress. Principal Diagnosis acute appendicitis Discharge Exam awake/alert Constitutional no acute distress Respiratory normal respiratory effort Gastrointestinal (Abdomen) Inspection/Auscultation: + abdomen distended and + abdominal surgical incision (c/d/i with dermabond overtop) Percussion/Palpation: abdomen soft Discharge Data Allergies Allergy/AdvReac Type Severity Reaction Status Date / Time No Known Allergies Allergy Verified 02/04/21 16:58 Consultations 02/04/21 19:45 ED Decision to Admit Stat Procedures Performed Operation Date: 02/04/21 20:00 Actual Procedures p Laparoscopic Appendectomy(Not Applicable) - Saúl Hutchinson DO, FACS Ordered Studies 02/04/21 15:46 CT abd pelvis IV con only Stat Hospital Course (1) Acute appendicitis: This is a 75y M who presented to the [facility] ED on 02/04/21 with abdominal pain. Workup in the ED showed a WBC of [address] a/p concerning for acute appendicitis. The patient was tender to palpation in the RLQ. Patient was made NPO with IVF and booked for the OR. On 02/04 the patient went to the OR with Dr. Hutchinson for a laparoscopic appendectomy. The patient tolerated the procedure well, see operative report for full details. He remained on post op IV abx for c ontained perforation seen intra-op. Post operatively the patient's diet was advanced, pain managed on prn meds, and incisions clean/dry/intact. The patient initially was only voiding small amounts of urine, but was ultimately able to start voiding normally without issues. On POD#1 the patient was deemed stable for discharge to home. He was prescribed a course of po augmentin to take for 1 week. He was given instructions to follow up in clinic within 2 weeks. Total Time Total Time Spent Total Time Spent (In Minutes): 10 Discharge Plan Discharge Items Patient Disposition: Home - Self-Care Reason For Visit: APPY Discharge Diagnosis: appendicitis Activity: Per Instructions section Lifting: No more than 10 pounds Bathing Comment: may shower; no soaking in tubs/pools Exercise/Sports: Wait until after follow-up appointment Driving/Machine Use: do not resume driving while taking narcotics for pain Non-emergency contact: Surgeon Call non-emergency contact if: you have any medication questions, your symptoms worsen, your pain is not controlled, your pain is worsening, your pain is unusual for you, you have a fever, your temperature is above 101.5, your wound has increased redness, your wound has increased drainage and your wound pain has increased Follow-up/Referrals: Saúl Hutchinson DO, FACS [Physician] - 02/17/21 11:15 am (Please call to schedule follow up in clinic within 1-2 weeks) Connor Kee MD [Primary Care Provider] - Diet: Carb Consistent or DM2 Addtl Attending Provider Instructions: Pending Studies at Discharge: Yes Studies:: surgical pathology Stand-Alone Forms: My [place] [facility], Opioid Pain Management, Smoking Cessation Medications and DC Order Prescriptions: New oxycodone-acetaminophen [Percocet] 5-325 mg tablet 1 - 2 tab PO .q4-6h PRN (Reason: pain, for initial therapy, max 6 tabs per day) Qty: 15 RF: 0 amoxicillin-pot clavulanate [Augmentin] 875-125 mg tablet 1 tab PO BID Qty: 14 RF: 0 Continued allopurinol 100 mg tablet 100 mg PO BID Qty: 180 RF: 3 atorvastatin 20 mg Tablet 20 mg PO HS RF: 0 glipizide 5 mg Tablet Extended Release 24hr 5 mg PO QAM RF: 0 cholecalciferol (vitamin D3) [Vitamin D3] 1,000 unit Tablet 1,000 unit PO QAM RF: 0 Macuvite Eye Care 7,160 unit- 113 mg-1 mg Tablet 1 tab PO QAM RF: 0 glucosamine-chondroitin 1,500-1,200 mg/30 mL Liquid 30 ml PO HS RF: 0 cinnamon bark 500 mg Capsule 500 mg PO HS RF: 0 doxepin 75 mg capsule 75 mg PO HS RF: 0 Discharge Orders: Discharge Order (Routine); Ordered 02/05/21 Ordered By: Doreen Obrien/Other Patient Handouts: Appendectomy, What Is Appendicitis? Admission Data Admit Date/Time: 02/04/21 21:31 Attending Provider: Saúl Hutchinson Admit Provider: Saúl Hutchinson Primary Care Provider: Connor Kee Other Providers: Saúl Hutchinson Other Interventions: Discharge Summary Assessment (RN) Last Done: 02/05/21 14:16 Coding Level of Care Code D/C Day Management <30 mins Diagnoses Acute appendicitis K35.80 Acute appendicitis type: unspecified acute appendicitis type
== END 2021-02-05 14:51 | disposition home or self-care (01) ==
LOC: ED 14:59 → OR 19:45 → 3N 19:45

== ENCOUNTER 2024-07-10 23:19 | Inpatient (IN) ==
--- OUTSIDE RECORDS SUMMARY | 2024-07-10 23:22 | External Medical Summary | Continuity of Care Document ---
Author Name Unknown Organization [facility] [address] [facility] [address] [id number] Care Team Providers Care Machine Wedger Name Role Phone Connor Kee Primary Care Physician [phone] [id number] [address] [facility] [address] [facility] [place] [address] [phone] Encounter Diagnosis Open fracture of shaft of metacarpal bone of left hand with routine healing (Discharge Diagnosis) - 06/05/24 Discharge Disposition: Home or Self Care Attending Physician: MD Warren Kavita Tarun Referring Physician: MD Kee Timothy F Allergies, Adverse Reactions, Alerts No Known Allergies Medications allopurinol Start: 05/08/24 1:07:00 PM EDT, 100 mg =, PO, bid Start Date: 05/08/24 Status: Ordered atorvastatin 20 mg oral tablet Start: 04/20/24 10:55:00 PM EDT, 1 tab, PO, qhs Start Date: 04/20/24 Status: Ordered D3 25 mcg (1000 intl units) oral tablet Start: 05/08/24 1:08:00 PM EDT, 1 tab, PO, Daily Start Date: 05/08/24 Status: Ordered doxepin Start: 05/08/24 1:08:00 PM EDT, 75 mg =, PO, Daily Start Date: 05/08/24 Status: Ordered dutasteride 0.5 mg oral capsule Start: 05/08/24 1:08:00 PM EDT, 1 cap, PO, Daily Start Date: 05/08/24 Status: Ordered glipiZIDE 5 mg oral tablet, extended release Start: 04/20/24 10:56:00 PM EDT, 1 tab, PO, Daily Start Date: 04/20/24 Status: Ordered Glucosamine Chondroitin Start: 05/08/24 1:09:00 PM EDT, See Instructions, 2 tabs po daily Start Date: 05/08/24 Status: Ordered Keflex 500 mg oral capsule Start: 04/21/24 9:57:00 AM EDT, 2 cap, PO, qid, Disp# 112 cap, Pharmacy: [facility] Start Date: 04/21/24 Stop Date: 05/05/24 Status: Ordered Macular Health Start: 05/08/24 1:09:00 PM EDT, See Instructions, 1 po daily Start Date: 05/08/24 Status: Ordered methenamine hippurate 1 g oral tablet Start: 05/08/24 1:07:00 PM EDT, 1 tab, PO, bid Start Date: 05/08/24 Status: Ordered oxyCODONE 5 mg oral tablet Start: 04/21/24 10:18:00 AM EDT, 1 tab, PO, q4h, Disp# 20 tab, Refills: 0, PRN: as needed for pain, Pharmacy: [facility] Start Date: 04/21/24 Status: Ordered Tylenol Caplet Extra Strength 500 mg oral tablet Start: 05/08/24 1:10:00 PM EDT, 2 tab, PO, q6h, PRN: as needed for pain Start Date: 05/08/24 Status: Ordered Mental Status 06/05/24 Barriers to Learning one year Cognitive deficit, Vision impairment, Other: glasses Mandatory Health Literacy Documentation Yes Health Literacy Communication Barriers N ever Primary Language Japanese Problem List Condition Confirmation Course Effective Dates [facility] Informant Acute appendicitis Confirmed Active Acute kidney injury Confirmed Active Chronic back pain Confirmed Active Diabetes Confirmed Active Leukocytosis Confirmed Active Neurogenic bladder Confirmed Active Renal colic Confirmed Active Lumbar canal stenosis Confirmed Active Ureteral stone Confirmed Active Uric acid kidney stone Confirmed Active UTI symptoms Confirmed Active Diagnosis Diagnosis Type Effective Dates [facility] Status Clinical Service Informant Open fracture of shaft of metacarpal bone of left hand with routine healing Discharge Diagnosis 06/05/24 Non-Specified Vital Signs Most recent to oldest [Reference Range]: 1 Temperature [36.5-37.9 DegC] 35.9 DegC *LOW* (06/05/24 2:23 PM) Heart Rate 105 bpm (06/05/24 2:23 PM) Blood Pressure 128/79mmHg (06/05/24 2:23 PM) Cuff Pulse Pressure 49 mmHg (06/05/24 2:23 PM) BP Location # 1 Right Arm (06/05/24 2:23 PM) Social History Social History Type Response Smoking Status Former Smoker, quit > 1 yr Sex Male Sex Representation Male (finding) Implantable Device List Procedure Provider Procedure Date Device Type Site Unknown Unknown 04/21/24 Unknown Unknown Device Identifier Serial Number Lot or Batch Number Manufacturing Date Expiration Date Distinct Identification Code MRI Safety Implantable Status Assigning Authority Unknown Unknown [id number] Unknown 07/08/25 Unknown Unknown Active Unkn own Patient Care team information Care Team Personnel Name: MD Kee Timothy F Position: Referring DIRECT Member Role: Primary Care Provider Address: [address] [place] [id number] [place] Care Team Related Persons Name: DIDI PLUMMER Name: STEFFI RUSH
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
--- OUTSIDE RECORDS SUMMARY | 2024-07-10 23:22 | External Medical Summary ---
Author Name Unknown Address Unknown Organization K09:[facility] [id number] [place] [address] Laboratory Report Ordering Provider Test Date Status IGOR HANNAHUSSEIN 05/30/2024 09:47:52 Final Observation Date Value Abnormality Reference (Units ) Status BUN 05/30/2024 09:47:52 25 Above high normal 6-20 (mg/dL) Final Creatinine 05/30/2024 09:47:52 1.3 Above high normal 0.6-1.2 (mg/dL) Final Glomerular filtration rate/1.73 sq M.predicted [Volume Rate/Area] in Serum, Plasma or Blood by Creatinine-based formula (CKD-EPI) 05/30/2024 09:47:52 54 Below low normal >=60 (mL/min) Final eGFR is calculated based on the CKD-EPI 2020 equation. Sodium 05/30/2024 09:47:52 141 135-146 (m mol/L) Final Potassium 05/30/2024 09:47:52 4.5 3.5-5.1 (m mol/L) Final Cl 05/30/2024 09:47:52 104 98-107 (mm ol/L) Final CO2 05/30/2024 09:47:52 24 22-32 (mmo l/L) Final Anion gap 05/30/2024 09:47:52 13 7-15 (mmol /L) Final Glucose 05/30/2024 09:47:52 157 Above high normal 70 -120 (mg/dL) Final Albumin 05/30/2024 09:47:52 4.3 3.8-5.0 (g /dL) Final AST (Aspartate aminotransferase) 05/30/2024 09:47:52 16 10-50 (U/L) Fin al Alk Phos 05/30/2024 09:47:52 106 35-130 (U/ L) Final Bilirubin, Total 05/30/2024 09:47:52 0.5 <=1 .2 (mg/dL) Final Calcium 05/30/2024 09:47:52 9.4 8.4-10.2 ( mg/dL) Final Protein 05/30/2024 09:47:52 7.1 6.0-8.3 (g /dL) Final ALT (Alanine aminotransferase) 05/30/2024 09:47:52 20 10-50 (U/L) Luca rossi Performing Location [facility] [address] [place] [address]
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
--- OUTSIDE RECORDS SUMMARY | 2024-07-10 23:22 | External Medical Summary | Summary of Care ---
Author Name Unknown Organization [facility] Address [address] [place] [address] Phone [phone] Care Team Providers Care Aircraft Pilot Name Role Phone Connor Kee MD Primary Care Provider + Reason for Visit * Reason Comments Outpatient Testing Encounter Details Date Type Department Care Team (Late st Contact Info) Description 05/30/2024 10:00 AM EDT Laboratory Laboratory [facility] [place] [address] [place] [address] [place], Lab Scene [address] [facility] [place] [address] Type 2 diabetes mellitus with stage 3b chronic kidney disease, without long-term current use of insulin ([facility]); Type 2 diabetes mellitus with hemoglobin A1c goal of less than 8.0% ([facility]) Allergies No known active allergiesdocumented as [...] Recomb Adjuvanted 50 MCG/0.5ML Intramuscular Suspension Reconstituted (Shingrix)Indications:Nee d for shingles vaccine Inject 0.5 mL into [...] Active Atorvastatin Calcium 20 MG Oral Tablet (Lipitor)Indications:Pure hypercholesterolemia TAKE 1 TABLET BY MOUTH ONCE DAILY 90 Tablet 3 4 Active documented as of this encounter (statuses as [...] kidney stones 02/02/2018 Overview: Had stent Rt--2013 History of gout 08/04/2017 Pure hypercholesterolemia 01/27/2017 [...] mRNA, LNP-s, No Pre serve, 2-Dose Series ([employer]) 11/04/2021,02/11/2021,01/21/2021 Pneumococcal Conjugate Vacc, 13 Valent (Prevnar) [...] 0 01/23/1973 - 01/23/2013 Smokeless Tobacco: Never Alcohol Use Standard Drinks/Week Comments No 0 [...] on file documented as of this encounter Plan of Treatment Upcoming Encounters Date Type Department Care Team (Late st Contact Info) Description 01/30/2025 9:00 AM EDT Office Visit General Internal Medicine [place] [address] [place] [address] Connor Kee MD [address] [place] [address] Pending Results Name Type Priority Associated Diagnoses Date /Time HEMOGLOBIN A1C Lab Routine Type 2 diabetes mellitus with stage 3b chronic kidney disease, without long-term current use of insulin ([facility]) 05/30/2024 9:47 AM EDT COMPREHENSIVE METABOLIC PANEL Lab Routine Type 2 diabetes mellitus with stage 3b chronic kidney disease, without long-term current use of insulin ([facility]) 05/30/2024 9:47 AM EDT PHOSPHORUS Lab Routine Type 2 diabetes mellitus with stage 3b chronic kidney disease, without long-term current use of insulin ([facility]) 05/30/2024 9:47 AM EDT CBC WITH WBC DIFFERENTIAL Lab Routine Type 2 diabetes mellitus with stage 3b chronic kidney disease, without long-term current use of insulin ([facility]) 05/30/2024 9:47 AM EDT CBC Lab Routine Type 2 diabetes mellitus with stage 3b chronic kidney disease, without long-term current use of insulin ([facility]) 05/30/2024 9:47 AM EDT DIFFERENTIAL, AUTOMATED Lab Routine Type 2 diabetes mellitus with stage 3b chronic kidney disease, without long-term current use of insulin ([facility]) 05/30/2024 9:47 AM EDT ALBUMIN / CREATININE RATIO, URINE Lab Routine Type 2 diabetes mellitus with hemoglobin A1c goal of less than 8.0% ([facility]) 05/30/2024 9:51 AM EDT Health Maintenance Due Date Last Done Comments Lung Cancer Screening 1993 Zoster Vaccines (1 of 2) 1993 COVID-19 Vaccine ( season) 2023 11/04/2021, 02/11/2021, 01/21/2021 Albumin/Creatinine Ratio 09/30/2023 022, 03/10/2021, 02/08/2019, Additional history exists CKD PHOS USE SMARTSET 08096 04/07/202403/10, 03/13/2022, 03/10/2021, Additional history exists GFR 05/19/2024 11/19/2023, 03/10, 09/30/2022, Additional history exists HbA1c 05/19/2024 11/19/2023, 03/10, 09/30/2022, Additional history exists Influenza Vaccine (FLU shot) (#1) 2024 08/20/2023, 08/27/2022, 09/10/2021, Additional history exists CKD HGB USE SMARTSET 29690 11/19/202411/19, 11/19/2023, 09/30/2022, Additional history exists Depression [...] without long-term current use of insulin (HCC) Type 2 diabetes mellitus with hemoglobin A1c goal of less than 8.0% (HCC) documented in this encounter Care Teams Aircraft Pilot Relationship Specialty Start Date End Date Connor Kee MD [address] [place] [address] PCP - General Internal Medicine 05/13/12 documented as of this encounter
--- OUTSIDE RECORDS SUMMARY | 2024-07-10 23:22 | External Medical Summary | Summary of Care ---
Author Name Unknown Organization [facility] Address [address] [place] [address] Phone [phone] Care Team Providers Care Records Management Coordinator Name Role Phone Connor Kee MD Primary Care Provider + Reason for Visit * Reason Comments Outpatient Testing Encounter Details Date Type Department Care Team (Late st Contact Info) Description 05/30/2024 10:00 AM EDT Laboratory Laboratory [facility] [place] [address] [place] [address] [place], Lab Scene [address] [facility] [place] [address] Type 2 diabetes mellitus with stage 3b chronic kidney disease, without long-term current use of insulin ([facility]); Type 2 diabetes mellitus with hemoglobin A1c goal of less than 8.0% ([facility]) Allergies No known active allergiesdocumented as of [...] mRNA, LNP-s, No Pre serve, 2-Dose Series ([employer]) 11/04/2021,02/11/2021,01/21/2021 Pneumococcal Conjugate Vacc, 13 Valent (Prevnar) [...] [place] [address] [place] [address] Connor Kee MD [address] [place] [address] Pending Results Name Type Priority Associated Diagnoses Date /Time HEMOGLOBIN A1C Lab Routine Type 2 diabetes mellitus with stage 3b chronic kidney disease, without long-term current use of insulin ([facility]) 05/30/2024 9:47 AM EDT COMPREHENSIVE METABOLIC PANEL Lab Routine Type 2 diabetes mellitus with stage 3b chronic kidney disease, without long-term current use of insulin ([facility]) 05/30/2024 9:47 AM EDT PHOSPHORUS Lab Routine Type 2 diabetes mellitus with stage 3b chronic kidney disease, without long-term current use of insulin ([facility]) 05/30/2024 9:47 AM EDT CBC WITH WBC DIFFERENTIAL Lab Routine Type 2 diabetes mellitus with stage 3b chronic kidney disease, without long-term current use of insulin ([facility]) 05/30/2024 9:47 AM EDT CBC Lab Routine Type 2 diabetes mellitus with stage 3b chronic kidney disease, without long-term current use of insulin ([facility]) 05/30/2024 9:47 AM EDT DIFFERENTIAL, AUTOMATED Lab Routine Type 2 diabetes mellitus with stage 3b chronic kidney disease, without long-term current use of insulin ([facility]) 05/30/2024 9:47 AM EDT ALBUMIN / CREATININE RATIO, URINE Lab Routine Type 2 diabetes mellitus with hemoglobin A1c goal of less than 8.0% ([facility]) 05/30/2024 9:51 AM EDT Health Maintenance Due Date Last Done Comments Lung Cancer Screening 1993 Zoster Vaccines (1 of 2) 1993 COVID-19 Vaccine ( season) 2023 11/04/2021, 02/11/2021, 01/21/2021 Albumin/Creatinine Ratio 09/30/2023 022, 03/10/2021, 02/08/2019, Additional history exists CKD PHOS USE SMARTSET 02390 04/07/202403/10, 03/13/2022, 03/10/2021, Additional history exists GFR 05/19/2024 11/19/2023, 03/10, 09/30/2022, Additional history exists HbA1c 05/19/2024 11/19/2023, 03/10, 09/30/2022, Additional history exists Influenza Vaccine (FLU shot) (#1) 2024 08/20/2023, 08/27/2022, 09/10/2021, Additional history exists CKD HGB USE SMARTSET 68039 11/19/202411/19, 11/19/2023, 09/30/2022, Additional history exists Depression [...] (HCC) documented in this encounter Care Teams Records Management Coordinator Relationship Specialty Start Date End Date Connor Kee MD [address] [place] [address] PCP - General Internal Medicine 05/13/12 documented as of this encounter
--- OUTSIDE RECORDS SUMMARY | 2024-07-10 23:22 | External Medical Summary | Summary of Care ---
Author Name Unknown Organization [facility] Address [address] [place] [address] Phone [phone] Care Team Providers Care Director Of Hotel Operations Name Role Phone Connor Jaramillo MD Primary Care Provider + Reason for Visit * Reason Comments eRx-Medication Refill Encounter Details Date Type Department Care Team (Late st Contact Info) Description 06/10/2024 Refill General Internal Medicine [facility] [place] [address] [facility] [address] [place] [address] Connor [facility]illo MD [address] [facility] [address] Type 2 diabetes mellitus with stage 3b chronic kidney disease, without long-term current use of insulin (HCC) Allergies No known active allergiesdocumented as of this encounter (statuses as of 06/12/2024) Medications Medication Sig Dispensed Refills Start Date End Date Status DOXEPIN HCL 75 MG PO CAPS One pill by mouth at bedtime 30 Cap 11 06/01/20 11 Active CHOLECALCIFEROL 1000 UNITS PO CAPS one capsule daily 30 Cap 4 05/23/20 13 Active TYLENOL EXTRA STRENGTH 500 MG PO TABS 2 tablets as needed for pain Active EYE VITAMINS PO TABS one tablet daily 12/27/19 14 Active ONETOUCH ULTRA BLUE STRP Test daily as directed 100 Strip 5 07/04/20 16 Active Glucosamine Chondr 1500 Complx Oral Capsule Take 1 Capsule by mouth in the morning and 1 Capsule before bedtime. Active Allopurinol 100 MG Oral Tablet (ZYLOPRIM) Take 1 Tablet by mouth in the morning and 1 Tablet before bedtime. 180 Tab 1 09/09/20 20 Active Dutasteride-Tamsulosin HCl 0.5-0.4 MG Oral Capsule Take by mouth 0.[address] Espinoza Active Methenamine Hippurate 1 GM Oral Tablet Take by mouth. Active Zoster Vac Recomb Adjuvanted 50 MCG/0.5ML Intramuscular Suspension Reconstituted (Shingrix)Indications:N eed for shingles vaccine Inject 0.5 mL into a large muscle now and repeat dose in 60 to 180 days 1 Each 1 09/30/20 Active Additional Information Patient not taking.Reported on 05/30/2024 Atorvastatin Calcium 20 MG Oral Tablet (Lipitor)Indications:Pu re hypercholesterolemia TAKE 1 TABLET BY MOUTH ONCE DAILY 90 Tablet 3 04/24/20 24 Active glipiZIDE ER 5 MG Oral Tablet Extended Release 24 Hour (Glucotrol XL)Indications:Type 2 diabetes mellitus with stage 3b chronic kidney disease, without long-term current use of insulin (HCC) TAKE 1 TABLET BY MOUTH ONCE DAILY 30 MINUTES BEFORE A MEAL 90 Tablet 1 06/12/20 24 Active glipiZIDE ER 5 MG Oral Tablet Extended Release 24 Hour (Glucotrol XL)Indications:Type 2 diabetes mellitus with stage 3b chronic kidney disease, without long-term current use of insulin (HCC) TAKE 1 TABLET BY MOUTH ONCE DAILY 30 MINUTES BEFORE A MEAL 90 Tablet 1 12/10/19 24 024 Discontinued documented as of this encounter (statuses as of 06/12/2024) Active Problems Problem Noted Date Diagnosed Date [...] of kidney stones 02/02/2018 Overview: Had stent Rt--2014 DrYingling History of gout 08/04/2017 Pure hypercholesterolemia 01/27/2017 Right bundle branch block 06/27/2014 History of tobacco use 12/27/2013 Generalized anxiety disorder 06/20/2012 documented as of this encounter (statuses as of 06/12/2024) Resolved Problems Problem Noted Date Diagnosed Date [...] as of this encounter (statuses as of 06/12/2024) Immunizations Name Administration Dates Next Due COVID-19 mRNA, LNP-s, No Pre serve, 2-Dose Series ([employer]) 11/04/2021,02/11/2021,01/21/2021 Pneumococcal Conjugate Vacc, 13 Valent (Prevnar) [...] on file documented as of this encounter Miscellaneous Notes * Telephone Encounter - Carolyne Dong, [facility] - 06/12/2024 4:54 AM EDTSigned Prescriptions: Disp Refills glipiZIDE ER 5 MG Oral Tablet Extended Rel*90 Tab*1 Sig: TAKE 1 TABLET BY MOUTH ONCE DAILY 30 MINUTES BEFORE A MEALAuthorizing Provider: CONNOR JARAMILLO User: CAROLYNE DONG documented in this encounter Plan of Treatment Upcoming Encounters Date Type Department Care Team (Late st Contact Info) Description 01/30/2025 9:00 AM EDT Office Visit General Internal Medicine [facility] [address] [place] [address] Connor Jaramillo MD [address] [facility] [place] [address] Health Maintenance Due Date Last Done Comments Lung Cancer Screening 1993 Zoster Vaccines (1 of 2) 1993 COVID-19 Vaccine ( season) 2023 11/04/2021, 02/11/2021, 01/21/2021 Influenza Vaccine (FLU shot) (#1) 2024 08/20/2023, 08/27/2022, 09/10/2021, Additional history exists Depression Screening 11/19/2024 11/19/2023, 01/01/20 16 Diabetic Foot Exam 11/19/2024 11/19/2023, 1 11/30/2021, 09/10/2021, Additional history exists GFR 11/30/2024 05/30/2024, 11/08, 04/07/2023, Additional history exists HbA1c 11/30/2024 05/30/2024, 11/08, 04/07/2023, Additional history exists Diabetic Eye Exam 01/11/2025 01/12/2024, , 06/15/2023, Additional history exists Albumin/Creatinine Ratio 05/30/2025 024, 09/30/2022, 03/10/2021, Additional history exists CKD HGB USE SMARTSET 97939 05/30/202505/30, 05/30/2024, 11/19/2023, Additional history exists CKD PHOS USE SMARTSET 18814 05/30/2025 0701/2024, 04/07/2023, 03/13/2022, Additional history exists DTaP,Tdap,and Td Vaccines (3 [...] without long-term current use of insulin (HCC) documented in this encounter Care Teams Director Of Hotel Operations Relationship Specialty Start Date End Date Connor Jaramillo MD [address] [place] [address] PCP - General Internal Medicine 05/13/12 documented as of this encounter
--- OUTSIDE RECORDS SUMMARY | 2024-07-10 23:22 | External Medical Summary ---
Author Name Unknown Address Unknown Organization [id number]:[facility] [place] [address] Laboratory Report Ordering Provider Test Date Status ELLA HANNA 05/30/2024 09:47:52 Final Observation Date Value Abnormality Reference (Units ) Status WBC, Total 05/30/2024 09:47:52 9.10 4.00-10.8 0 (K/uL) Final RBC 05/30/2024 09:47:52 4.43 4.50-5.25 (M/uL) Final Hemoglobin 05/30/2024 09:47:52 13.1 Below low normal 14 .0-16.8 (g/dL) Final HCT 05/30/2024 09:47:52 40.3 40.0-48.4 (%) Final MCV 05/30/2024 09:47:52 91.0 82.0-99.5 (fL) Final MCH 05/30/2024 09:47:52 29.6 27.0-34.0 (pg) Final MCHC 05/30/2024 09:47:52 32.5 32.0-36.0 (g/dL) Final RDW 05/30/2024 09:47:52 14.5 11.5-15.5 (%) Final Platelets 05/30/2024 09:47:52 219 140-400 (K /uL) Final MPV 05/30/2024 09:47:52 9.7 6.6-11.1 ( fL) Final Performing Location [facility] [place] [address]
--- OUTSIDE RECORDS SUMMARY | 2024-07-10 23:22 | External Medical Summary ---
Author Name Unknown Address Unknown Organization K01:[facility] - [address] [facility] [address] Laboratory Report Ordering Provider Test Date Status ELLA HANNA 05/30/2024 09:47:52 Final Observation Date Value Abnormality Reference (Units ) Status HbA1C 05/30/2024 09:47:52 7.4 Above high normal 4. 0-5.6 (%) Final The use of HbA1c to monitor glycemic status is based on normal hemoglobin and HbA composition. This test should not be used in patients with abnormal hemoglobin that affects the half life of the red blood cell or the in vivo glycation rates. Glucose, estimated average 05/30/2024 09:47:52 166 Above high normal <126 (mg/dL) Luca rossi Performing Location LAB[facility]ATORY [facility] - [address] [facility] [address]
--- OUTSIDE RECORDS SUMMARY | 2024-07-10 23:22 | External Medical Summary ---
Author Name Unknown Address Unknown Organization [id number]:[facility] [place] [address] Laboratory Report Ordering Provider Test Date Status ELLA HANNA 05/30/2024 09:47:52 Final Observation Date Value Abnormality Reference (Units ) Status Phosphate 05/30/2024 09:47:52 2.9 2.5-4.8 (m g/dL) Final Performing Location [facility] [place] [address]
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
--- OUTSIDE RECORDS SUMMARY | 2024-07-10 23:23 | External Medical Summary | Continuity of Care Document ---
Author Name Unknown Organization [facility] [address] [facility] [address] [id number] Care Team Providers Care Department Traffic Freight Router Name Role Phone Connor baugh Primary Care Physician [phone] Encounter [facility] [id number] Date(s): 05/08/24 - [facility]08/[facility] [address] [facility] Plastic Surgery [address] [facility], [address]tr[address] [place] [address] [phone] Encounter Diagnosis Fracture metacarpal-open(Discharge Diagnosis) - 04/21/24 Discharge Disposition: Home or Self Care Attending Physician: MD Warren Kavita Tarun Allergies, Adverse Reactions, Alerts No Known Allergies Assessment and Plan Extracted from: Title:Clinical Document Author:MD Kelvin, Farrah May Date:05/08/24 PLASTIC RECONSTRUCTIVE SURGERY OUTPATIENT NOTE Name: JANEE PLUMMER Patient Number: [id number] : 1945 Date of Service: 05/08/2024 Chief Complaint: I&D, open reduction, percutaneous pin fixation left metacarpal facture, antibiotic spacer placement Extensor tendon repair HPI: s/p above, doing well, pain well controlled Current Home Meds: (Last Updated 05/08 13:10) acetaminophen (Tylenol Caplet Extra Strength 500 mg oral tablet) 1,000 mg PO q6h PRN: as needed for pain allopurinol 100 mg PO bid ascorbic acid/chondroitin/glucosa/giovanni (Glucosamine Chondroitin) 2 tabs po daily atorvastatin (atorvastatin 20 mg oral tablet) 20 mg PO qhs cephalexin (Keflex 500 mg oral capsule) 1,000 mg PO qid cholecalciferol (D3 25 mcg (1000 intl units) oral tablet) 25 mcg PO Daily doxepin 75 mg PO Daily dutasteride (dutasteride 0.5 mg oral capsule) 0.5 mg PO Daily HAZARDOUS MEDICATION | capsule: enid Blood 05/08 13:10 glipiZIDE (glipiZIDE 5 mg oral tablet, extended release) 5 mg PO Daily methenamine (methenamine hippurate 1 g oral tablet) 1 g PO bid multivitamin with minerals ([employer]) 1 po daily oxyCODONE (oxyCODONE 5 mg oral tablet) 5 mg PO q4h PRN: as needed for pain Allergies and Sensitivities: NKA Past Medical History: Problems: Renal colic Chronic back pain UTI symptoms Ureteral stone Lumbar canal stenosis Acute appendicitis Leukocytosis Neurogenic bladder Uric acid kidney stone Acute kidney injury Diabetes OBJECTIVE Vitals: Last Updated 05/08/24 13:10 Date Temp BP Location Pulse RR SpO2 Pain 05/08/24 37.2 124/79 Left Arm 108 0 04/21/24 36.3 130/79 Right Arm 94 18 94 04/21/24 5 Vital Signs are the last 3 documented. No Orthostatic Data Available Height and Weight: Last Updated 04/20/24 22:46 Date BMI Wt(kg) Wt(lb) Method Ht(cm) (ft-in) Method 04/20/24 34.2 113.3 249 Bed Scale 182 5-11 Heights and Weights are the last 3 documented. Physical Exam splint removed, incision healing well, some delay centrally with fibrinous debris pins intact without evidence of infection xray today shows no complications, spacer in place ASSESSMENT: I&D, open reduction, percutaneous pin fixation left metacarpal facture and antibiotic spacer placement Extensor tendon repair PLAN: 1 ) OT today for thermoplastic splint, rx provided for OT closer, can start a/p rom of unaffected fingers and wrist 2 ) f/u 4 weeks with xray 15 minutes of the total visit were spent face to face with thepatient. Greater than 50% of the time was spent for counseling and coordination of care, discussing treatment options and recommendations. Sade Warren MD Upholstery Repairer Plastic and Reconstructive Surgery Medications allopurinol Start: 05/08/24 1:07:00 PM EDT, [...] cap, PO, qid, Disp# 112 cap, Pharmacy: [facility] Start Date: 04/21/24 Stop Date: 05/05/24 Status: [...] 0, PRN: as needed for pain, Pharmacy: [facility] Start Date: 04/21/24 Status: Ordered Tylenol Caplet Extra Strength 500 mg oral tablet Start: 05/08/24 1:10:00 PM EDT, 2 tab, PO, q6h, PRN: as needed for pain Start Date: 05/08/24 Status: Ordered Mental Status 05/08/24 Barriers to Learning one year Cognitive deficit, Vision impairment, Other: glasses Mandatory Health Literacy Documentation Yes Health Literacy Communication Barriers R laxmi Primary Language Chadian Problem List Condition Confirmation Course Effective Dates Status Health atus Informant Acute appendicitis Confirmed Active Acute kidney injury Confirmed Active Chronic back pain Confirmed Active Diabetes Confirmed Active Leukocytosis Confirmed Active Neurogenic bladder Confirmed Active Renal colic Confirmed Active Lumbar canal stenosis Confirmed Active Ureteral stone Confirmed Active Uric acid kidney stone Confirmed Active UTI symptoms Confirmed Active Diagnosis Diagnosis Type Effective Dates Health Status Cl inical Service Informant Fracture metacarpal-open Discharge Diagnosis 04/21/24 Non-Specified Results Radiology Reports * Exam Date Time Procedure Performing Provider Status 05/08/24 2:17 PM XR Hand Complete 3+ Views Left Bryan Escalona; Final Notes: (XR Hand Complete 3+ Views Left) Reason For Exam: left third metacarpal fracture s/p metacarpal pinning and spacer XR Hand Complete 3+ Views Left EXAMINATION: XR Hand Complete 3+ Views Left CLINICAL HISTORY: S62.309B: Unspecified fracture of unspecified metacarpal bon; S62.309B: Unspecified fracture of unspecified metacarpal bon; left third metacarpal fracture s/p metacarpal pinning and spacer COMPARISON: April 20, 2024 FINDINGS: 3 views the left hand. Interval resection of bone fragments from the comminuted mid third metacarpal diaphysis fracture with placement of antibiotic bone graft/spacer. Two crossed K wires span the surgical site. Vascular clips noted. Mild dorsal hand irregularity and persistent soft tissue swelling. Unchanged bone fragment adjacent to the second metacarpal diaphysis. Degenerative changes in the interphalangeal joints. IMPRESSION: Postoperative changes of the third metacarpal. No acute abnormality. Workstation ID: [id number] Final Dictated by:MD Woods Cristy N Dictated DT/TM:05/08/2024 2:26 Signed by:MD Woods Cristy N Signed (Electronic Signature):05/08/2024 2:25 p Vital Signs Most recent to oldest [Reference Range]: 1 Temperature [36.5-37.9 DegC] 37.2 DegC (05/08/24 1:10 PM) Heart Rate 108 bpm (05/08/24 1:10 PM) Blood Pressure 124/79mmHg (05/08/24 1:10 PM) Cuff Pulse Pressure 45 mmHg (05/08/24 1:10 PM) BP Location # 1 Left Arm (05/08/24 1:10 PM) Social History Social History Type Response Smoking Status Former Smoker, quit > 1 yr Sex Male Implantable Device List Procedure Provider Procedure Date Device Type Site Unknown Unknown 04/21/24 Unknown Unknown Device Identifier Serial Number Lot or Batch Number Manufacturing Date Expiration Date Distinct Identification Code MRI Safety Implantable Status Assigning Authority Unknown Unknown [id number] Unknown 07/08/25 Unknown Unknown Active Unkn own PRS Outpt Note * MD Kelvin, Sade Mya: PERFORM Event Display: PRS Outpt Note Authored Date: [id number] PLASTIC RECONSTRUCTIVE SURGERY OUTPATIENT NOTE Name: JANEE PLUMMER Patient Number: [id number] : 1945 Date of Service: 05/08/2024 Chief Complaint: I&D, open reduction, percutaneous pin fixation left metacarpal facture, antibiotic spacer placement Extensor tendon repair HPI: s/p above, doing well, pain well controlled Current Home Meds: (Last Updated 05/08 13:10) acetaminophen (Tylenol Caplet Extra Strength 500 mg oral tablet) 1,000 mg PO q6h PRN: as needed forpain allopurinol 100 mg PO bid ascorbic acid/chondroitin/glucosa/giovanni (Glucosamine Chondroitin) 2 tabs po daily atorvastatin (atorvastatin 20 mg oral tablet) 20 mg PO qhs cephalexin (Keflex 500 mg oral capsule) 1,000 mg PO qid cholecalciferol (D3 25 mcg (1000 intl units) oral tablet) 25 mcg PO Daily doxepin 75 mg PO Daily dutasteride (dutasteride 0.5 mg oral capsule) 0.5 mg PO Daily HAZARDOUS MEDICATION | capsule: green- Vannessa Stahlberrafael 05/08 13:10 glipiZIDE (glipiZIDE 5 mg oral tablet, extended release) 5 mg PO Daily methenamine (methenamine hippurate 1 g oral tablet) 1 g PO bid multivitamin with minerals ([employer]) 1 po daily oxyCODONE (oxyCODONE 5 mg oral tablet) 5 mg PO q4h PRN: as needed for pain Allergies and Sensitivities: NKA Past Medical History: Problems: Renal colic Chronic back pain UTI symptoms Ureteral stone Lumbar canal stenosis Acute appendicitis Leukocytosis Neurogenic bladder Uric acid kidney stone Acute kidney injury Diabetes OBJECTIVE Vitals: Last Updated 05/08/24 13:10 Date Temp BP Location Pulse RR SpO2 Pain 05/08/24 37.2 124/79 Left Arm 108 0 04/21/24 36.3 130/79 Right Arm 94 18 94 04/21/24 5 Vital Signs are the last 3 documented. No Orthostatic Data Available Height and Weight: Last Updated 04/20/24 22:46 Date BMI Wt(kg) Wt(lb) Method Ht(cm) (ft-in) Method 04/20/24 34.2 113.3 249 Bed Scale 182 5-11 Heights and Weights are the last 3 documented. Physical Exam splint removed, incision healing well, some delay centrally with fibrinous debris pins intact without evidence of infection xray today shows no complications, spacer in place ASSESSMENT: I&D, open reduction, percutaneous pin fixation left metacarpal facture and antibiotic spacer placement Extensor tendon repair PLAN: 1 ) OT today for thermoplastic splint, rx provided for OT closer, can start a/p rom of unaffected fingers and wrist 2 ) f/u 4 weeks with xray 15 minutes of the total visit were spent face to face with thepatient. Greater than 50% of the time was spent for counseling and coordination of care, discussing treatment options and recommendations. Sade Warren MD Upholstery Repairer Plastic and Reconstructive Surgery Electronic Signature on File Electronically Reviewed/Signed by: Sade Warren MD Author Signature Dt/Tm:05/08/2024 03:43 PM Division of Plastic and Reconstructive Surgery [facility] Patient Care team information Care Team Personnel Name: MD Kee Timothy F Position: Referring DIRECT Member Role: Primary Care Provider Address: Address: [address] [place] [address] [place] Care Team Related Persons Name: DIDI PLUMMER Address: home [address] [place], [place] [id number] Name: STEFFI RUSH Address: [address] [id number]"
--- OUTSIDE RECORDS SUMMARY | 2024-07-10 23:23 | External Medical Summary | Summary of Care ---
Author Name Unknown Organization [facility] Address [address] [place] [address] Phone [phone] Care Team Providers Care Field Map Technician Name Role Phone Connor Jaramillo MD Primary Care Provider + Reason for Visit * Reason Comments eRx-Medication Refill Encounter Details Date Type Department Care Team (Late st Contact Info) Description 04/22/2024 Refill General Internal Medicine [facility] [place] [address] [facility] [place] [address] Connor Jaramillo MD [address] [facility] [place] [address] Pure hypercholesterolemia Allergies No known active allergiesdocumented as of this encounter (statuses as of 04/24/2024) Medications Medication Sig Dispensed Refills Start Date [...] mg once . Per Dr. Espinoza Active [place] Advanced Carotenoid Oral Capsule Take by mouth. Active Methenamine Hippurate 1 GM Oral Tablet Take by mouth. Active Zoster Vac Recomb Adjuvanted 50 MCG/0.5ML Intramuscular Suspension Reconstituted (Shingrix)Indications:Ne ed for shingles vaccine Inject 0.5 mL into a large muscle now and repeat dose in 60 to 180 days 1 Each 1 2 Active glipiZIDE ER 5 MG Oral Tablet [...] ONCE DAILY 90 Tablet 3 4 Active Atorvastatin Calcium 20 MG Oral Tablet (Lipitor)Indications:Pur e hypercholesterolemia TAKE 1 TABLET BY MOUTH ONCE DAILY 90 Tablet 1 3 024 Discontinued documented as of this encounter (statuses as of 04/24/2024) Active Problems Problem Noted Date Diagnosed Date [...] as of this encounter (statuses as of 04/24/2024) Resolved Problems Problem Noted Date Diagnosed Date [...] as of this encounter (statuses as of 04/24/2024) Immunizations Name Administration Dates Next Due COVID-19 mRNA, LNP-s, No Pre serve, 2-Dose Series ([employer]) 11/04/2021,02/11/2021,01/21/2021 Pneumococcal Conjugate Vacc, 13 Valent (Prevnar) [...] yrs 08/14/2019 TDAP (age 10 and older)(Boostrix) 06/27/2014 documented as of this encounter Social History [...] money to get more. Never true 09/30/2022 Sex and Gender Information Value Date Recorded Sex Assigned at Male 05/02/2019 10:35 AM EDT Gender Identity Male 05/02/2019 10:35 AM EDT Sexual Orientation Straight 05/02/2019 10 :35 AM EDT Job Start Date Occupation Industry Not on file Not on file Not on file documented as of this encounter Miscellaneous Notes * Telephone Encounter - Gretel Valencia RPh - 04/24/2024 9:56 AM EDT Signed Prescriptions: Disp Refills Atorvastatin Calcium 20 MG Oral Tablet (Li*90 Tab*3 Sig: TAKE 1TABLET BY MOUTH ONCE DAILYAuthorizing Provider: CONNOR JARAMILLO User: GRETEL VALENCIA documented in this encounter Plan of Treatment Upcoming Encounters Date Type Department Care Team (Late st Contact Info) Description 05/30/2024 9:20 AM EDT Office Visit General Internal Medicine [facility] [address] [place] [address] Connor Jaramillo MD [address] [place] [phone] Health Maintenance Due Date Last Done Comments Lung Cancer Screening 1993 Zoster Vaccines (1 of 2) 1993 COVID-19 Vaccine ( season) 2023 11/04/2021, 02/11/2021, 01/21/2021 Albumin/Creatinine Ratio 09/30/2023 022, 03/10/2021, 02/08/2019, Additional history exists CKD PHOS USE SMARTSET 66729 04/07/202403/10, 03/13/2022, 03/10/2021, Additional history exists GFR 05/19/2024 11/19/2023, 03/10, 09/30/2022, Additional history exists HbA1c 05/19/2024 11/19/2023, 03/10, 09/30/2022, Additional history exists DTaP,Tdap,and Td Vaccines (2 - Td or Tdap) 06/27/2024 06/27/2014 CKD HGB USE SMARTSET 69875 11/19/202411/19, 11/19/2023, 09/30/2022, Additional history exists Depression Screening 11/19/2024 11/19/2023, 01/01/20 16 Diabetic Foot Exam 11/19/2024 11/19/2023, 1 11/30/2021, 09/10/2021, Additional history exists Diabetic Eye Exam 01/11/2025 01/12/2024, , 06/15/2023, Additional history exists Pneumococcal Vaccine: 65+ Years Completed 01/02/2015, 08/22/2013, 06/20/2012 Influenza Vaccine (FLU shot) Completed , 08/27/2022, 09/10/2021, Additional history exists GARDASIL-HPV IMMUNIZATION SERIES Aged Out No longer eligible based on patient's age to complete this topic Hepatitis B Aged Out No longer eligi ble based on patient's age to complete this topic MENINGOCOCCAL (MENACTRA/MENVEO) Aged Out No longer eligible based on patient's age to complete this topic documented as of this encounter Medical Devices Not on filedocumented as of this encounter Visit Diagnoses Diagnosis Pure hypercholesterolemia documented in this encounter Care Teams Field Map Technician Relationship Specialty Start Date End Date Connor Jaramillo MD [address] [place] [place] [address] PCP - General Internal Medicine 05/13/12 documented as of this encounter
[2024-07-11] MEDS: SODIUM CHLORIDE 0.9% 1,000 ML IV SCH ×3 (00:26→06:47)
[2024-07-11 00:48] LABS: Basophils # (auto) 0.02 K/uL (0.00-0.20); Basophils % (auto) 0.4 %; Eosinophils # (auto) 0.19 K/uL (0.00-0.50); Eosinophils % (auto) 3.5 %; Hematocrit (blood only) 40.4 % (42.0-52.0); Hemoglobin 13.4 g/dl (14.0-18.0); Immature Granulocytes # (auto) 0.07 K/uL (0.01-0.20); Immature Granulocytes % (auto) 1.3 %; Lymphocytes # (auto) 0.67 K/uL (1.20-3.40); Lymphocytes % (auto) 12.2 %; Mean Corpuscular Hemoglobin 28.6 pg (25.0-34.0); Mean Corpuscular Hgb Conc 33.2 g/dL (32.0-36.0); Mean Corpuscular Volume 86.3 fL (80.0-100.0); Mean Platelet Volume 9.5 fL (9.4-12.4); Monocytes # (auto) 0.02 K/uL (0.11-0.59); Monocytes % (auto) 0.4 %; Neutrophils # (auto) 4.52 K/uL (1.40-6.50); Neutrophils % (auto) 82.2 %; Platelet Count 210 K/uL (130-400); RDW Coefficient of Variation 13.9 % (11.5-14.5); RDW Standard Deviation 43.3 fL (36.4-46.3); Red Blood Count 4.68 M/uL (4.70-6.10); White Blood Count 5.49 K/ul (4.8-10.8)
[2024-07-11] MEDS: SODIUM CHLORIDE 0.9% 1,000 ML IV ONE ×2 (00:55→03:40)
[2024-07-11 01:01] LABS: Albumin Level 4.4 gm/dl (3.4-5.0); BUN Creatinine Ratio 14.6 (10-20); Bilirubin Direct 0.1 mg/dl (0-0.2); Bilirubin,Total 0.4 mg/dl (0.2-1.0); Calcium 9.4 mg/dl (8.6-10.3); Est GFR (African American) 40.8 ml/min; Est GFR (Non-African American) 35.2 ml/min; Magnesium 1.6 mg/dl (1.7-2.4); Potassium 4.3 mmol/L (3.5-5.1); Total Protein 7.5 gm/dl (6.0-8.3); Troponin I High Sensitivity 5.9 pg/ml (0-20)
[2024-07-11 01:46] LABS: Appearance Urine Clear (Clear); Bilirubin Urine Negative (Negative); Blood Urine 1+ (Negative); Cast Urine Automated 0-2 /lpf (0-2); Color Urine Yellow; Epithelial Cell Urine Auto 0-2 /hpf (0-2); Glucose Urine UA Negative (Negative); Ketones Urine Negative (Negative); Leukocyte Esterase Urine 1+ (Negative); Nitrite Urine Negative (Negative); Protein Urine Trace (Negative); RBC Urine Automated 0-2 /hpf (0-2); Specific Gravity Urine 1.013 (1.000-1.030); Urobilinogen Urine Negative (Negative); WBC Urine Automated 21-50 /hpf (0-5)
[2024-07-11 01:52] LABS: Adenovirus PCR Not Detected (NotDetected); Bordetella parapertussis PCR Not Detected (NotDetected); Bordetella pertussis PCR Not Detected (NotDetected); Chlamydia pneumoniae PCR Not Detected (NotDetected); Coronavirus 229E PCR Not Detected (NotDetected); Coronavirus CoV-2 (COVID19)PCR Not Detected (NotDetected); Coronavirus HKU1 PCR Not Detected (NotDetected); Coronavirus NL63 PCR Not Detected (NotDetected); Coronavirus OC43PCR Not Detected (NotDetected); Human Metapneumovirus PCR Not Detected (NotDetected); Influenza A PCR Not Detected (NotDetected); Influenza B PCR Not Detected (NotDetected); Mycoplasma pneumoniae PCR Not Detected (NotDetected); Parainfluenza Virus 1 PCR Not Detected (NotDetected); Parainfluenza Virus 2 PCR Not Detected (NotDetected); Parainfluenza Virus 3 PCR Not Detected (NotDetected); Parainfluenza Virus 4 PCR Not Detected (NotDetected); Respiratory Syncytial VirusPCR Not Detected (NotDetected); Rhinovirus/Enterovirus PCR Not Detected (NotDetected)
--- NOTE | 2024-07-11 01:53 | Emergency Department Note ---
Impression & Plan Fatigue, Nausea, UTI (urinary tract infection) ED Provider Note ED Provider Note NAME: JANEE PLUMMER III AGE:78 SEX: Male : 1945 ARRIVES VIA: Private vehicle INFORMANT: Patient ED PROVIDER(s): Luzma Petersen DO CHIEF COMPLAINT: Fatigue, nausea, lightheadedness HPI: This is an 78-year-old male presents to the emergency department due to concern for feeling unwell that began this evening. He states he had been feeling well earlier in the day, no change in diet or medications. States after he came in from mowing the lawn he felt as though he was getting sick, began to feel fatigued, lightheaded, nauseated. He did vomit twice. No blood noted. He states he then developed shaking chills. No sense of fever. No known sick contacts. states he typically does not stay well-hydrated. Patient does straight cath for urine, no recent change in urine output or in stools. PAST MEDICAL HISTORY:See Below PAST SURGICAL HISTORY:See Below FAMILY HISTORY:See Below SOCIAL HISTORY:See Below HOME MEDICATIONS:See Below ALLERGIES:See Below VITALS:See Below PHYSICAL EXAMINATION: GENERAL: alert, unwell appearing, well nourished, no distress, non-toxic EYE EXAM: normal conjunctiva, PERRL and EOM's grossly intact OROPHARYNX: no exudate, no erythema, lips, buccal mucosa, and tongue normal and mucous membranes are dry NECK: supple, no nuchal rigidity, no adenopathy, non-tender LUNGS: Clear to auscultation. Normal chest wall mechanics, no w/r/r HEART: no murmurs, S1 normal and S2 normal ABDOMEN: abdomen soft, non-tender, normo-active bowel sounds, no masses, no rebound or guarding. BACK: Back is symmetrical on inspection and there is no deformity, no midline tenderness, no CVA tenderness. Small approx 3-4 cm area of chronic appearing erythema noted to left lateral lumbar area, indurated, no central fluctuance - patient states he has a "cyst" that needs removed SKIN: no rashes, petechiae, orbruising UPPER EXTREMITIES: upper extremities are grossly normal. FROM, nml pulses b/l. LOWER EXTREMITIES: No pitting edema. FROM, nml pulses b/l. NEURO EXAM: Normal sensorium, cranial nerves II-XII grossly intact, normal speech, no facial droop,nogross weakness of arms, no gross weakness of legs. Gross sensation intact. No ataxia. Vital Signs: reviewed and remarkable Differential Diagnosis: sepsis, dehydration, viral syndrome, food borne illness, uti, pna, colitis, cholecystitis, pancreatitis, as well as others were considered MEDICAL DECISION MAKING: This is an 78 yo male who presents to the ER with fatigue, weakness, nausea and concern for feeling unwell. He was noted be tachycardic and tachypneic. Labs drawn and sent, IV established, EKG and CXR performed and interpreted at bedside, and patient placed on telemetry. Blood culture obtained, urine collected, and viral nasal swab sent also. Urine appears infected. AFter review of prior UA's and cultures, patient started on IV rocephin. Tachycardia did improve with IVF and patient did initially appear clinically dehydrated. He did receive a total of 30 mg/kg of IVF based on IBW. Patient sent for CT a/p additionally to r/o pyelo or other obstructive uropathy. Patient noted have increased lactic acid and on repeat was increased compared to prior. Due to concern for evolving sepsis, case discussed with hospitalist team for additional evaluation and mgmt. Patient and at bedside updated several times throughout and verbalized understanding. Consultation(s): 0430: Discussed with Dr. Lyon, [facility] hospitalist team, for additional evaluation and mgmt. ER Treatment Provided: See below Diagnostics Interpreted By Me: -ECG: Sinus tachycardia at 121, normal axis, right bundle branch block, nonspecific ST/T wave changes -Cardiac Monitoring: An order was placed for continuous cardiac monitoring. The monitor shows a rate of 105 with sinus tachycardia rhythm. -Laboratory studies: As stated above and show below. -Imaging studies: X-ray Chest: A single view study of the chest was reviewed and was negative for cardiomegaly, focal infiltrate, effusion, pulmonary edema, or wide mediastinum. Triage Nursing Note Reviewed Prior/Outside Records Reviewed - prior urine cultures reviewed Critical Care: Critical care of 44 min performed to assess and manage high likelihood of life- threatening sepsis, involving labs and imaging performed with assessment to evaluate weakness/nausea/rigors diagnosis with frequent reassessment. This time includes bedside time, treatment discussions with patient/family/consultants, documentation time and excludes procedure time. Past Med/Surg History Problem List (Updated 07/13/24 @ 09:27 by Luzma Petersen, DO) Bladder stone Sepsis Nausea (Acute) Fatigue (Acute) Neurogenic bladder, flaccid Uric acid kidney stone Urinary retention History of laparoscopic appendectomy (02/04/21) Laparoscopic Appendectomy Dr. Hutchinson 02/04/2021 Encounter for pre-operative examination Abdominal pain (Acute) Leukocytosis (Acute) Acute appendicitis (Acute) Lumbar canal stenosis (Acute) Lumbosacral radiculopathy at L5 (Acute) Ureteral stone (Acute) UTI (urinary tract infection) (Acute) Kidney stone (Chronic) Chronic back pain (Chronic) Acute kidney injury (Acute) Intractable pain (Acute) Renal colic (Acute 10/18/14) Medical History History of back problems Kidney stone Surgical History History of laparoscopic appendectomy (02/04/21) History of ureter stent (10/19/14) Social History Smoking Status: Former smoker Second Hand Exposure: No; Do You Dip or Chew Tobacco: No; Tobacco Cessation Education Requested by Patient: No Hx Alcohol Use: Yes Hx Substance Use: No Preferred Language: Arabic Communication Ability: Effective [place]ags[employer] Operator Required: No Beliefs That Will Affect Care: None Current Living Situation: Spouse Feels Safe at Home: Yes Assistive Devices: None Allergies Allergies Allergy/AdvReac Type Severity Reaction Status Date / Time No Known Allergies Allergy Verified 10/07/23 09:14 Home Meds Home Medications Medication Instructions Recorded Confirmed allopurinol 100 mg tablet 100 mg PO BID 07/11/24 07/11/24 atorvastatin 20 mg tablet 20 mg PO DAILY 07/11/24 07/11/24 cholecalciferol (vitamin D3) 25 25 mcg PO DAILY 07/11/24 07/11/24 mcg (1,000 unit) tablet doxepin 75 mg capsule 75 mg PO DAILY 07/11/24 07/11/24 dutasteride 0.5 mg capsule 0.5 mg PO DAILY 07/11/24 07/11/24 glipizide 5 mg tablet 5 mg PO DAILY 07/11/24 07/11/24 methenamine hippurate 1 gram tablet 1 g PO BID 07/11/24 07/11/24 Results & Data (ED) Vital Signs Vital Signs - 24 hr 07/10/24 23:29 07/10/24 23:38 07/10/24 23:42 Temperature 36.7 C Temperature Source Oral Pulse Rate 127 H 121 H 117 H Pulse Rate [Apical] Pulse Rate from SpO2 Sensor 118 H Pulse Rhythm [Apical] Respiratory Rate 20 32 H Respiratory Effort / Characteristics Non-Labored Spontaneous Respiratory Depth Normal Respiratory Pattern Regular Blood Pressure 138/72 Blood Pressure [Left Arm] Blood Pressure Mean 94 Blood Pressure Mean [Left Arm] Pulse Oximetry 92 96 Oxygen Delivery Method Room Air Sepsis Recent Fever Within 48 Hours No Sepsis New/Unexplained Change in Mental Status No Sepsis Action Taken by Nursing No Action Required 07/10/24 23:45 07/10/24 23:45 07/10/24 23:45 Temperature Temperature Source Pulse Rate 118 H Pulse Rate [Apical] 71 Pulse Rate from SpO2 Sensor 120 H Pulse Rhythm [Apical] Regular Respiratory Rate 24 30 H Respiratory Effort / Characteristics Respiratory Depth Normal Respiratory Pattern Blood Pressure 119/80 Blood Pressure [Left Arm] 119/80 Blood Pressure Mean 83 Blood Pressure Mean [Left Arm] 93 Pulse Oximetry 94 94 Oxygen Delivery Method Room Air Sepsis Recent Fever Within 48 Hours Sepsis New/Unexplained Change in Mental Status Sepsis Action Taken by Nursing 07/10/24 23:45 07/11/24 00:00 07/11/24 00:03 Temperature Temperature Source Pulse Rate 115 H Pulse Rate [Apical] Pulse Rate from SpO2 Sensor Pulse Rhythm [Apical] Respiratory Rate 28 H Respiratory Effort / Characteristics Respiratory Depth Respiratory Pattern Blood Pressure 119/80 157/79 H Blood Pressure [Left Arm] Blood Pressure Mean 83 98 Blood Pressure Mean [Left Arm] Pulse Oximetry Oxygen Delivery Method Sepsis Recent Fever Within 48 Hours Sepsis New/Unexplained Change in Mental Status Sepsis Action Taken by Nursing 07/11/24 00:15 07/11/24 00:23 07/11/24 00:23 Temperature 36.9 C Temperature Source Oral Pulse Rate 122 H 122 H Pulse Rate [Apical] 121 H Pulse Rate from SpO2 Sensor 121 H Pulse Rhythm [Apical] Respiratory Rate 35 H 30 H Respiratory Effort / Characteristics Respiratory Depth Respiratory Pattern Blood Pressure Blood Pressure [Left Arm] Blood Pressure Mean Blood Pressure Mean [Left Arm] Pulse Oximetry 96 95 Oxygen Delivery Method Room Air Sepsis Recent Fever Within 48 Hours Sepsis New/Unexplained Change in Mental Status Sepsis Action Taken by Nursing 07/11/24 00:31 07/11/24 00:33 07/11/24 00:39 Temperature Temperature Source Pulse Rate 121 H 125 H Pulse Rate [Apical] Pulse Rate from SpO2 Sensor 122 H 125 H Pulse Rhythm [Apical] Respiratory Rate 32 H 22 Respiratory Effort / Characteristics Respiratory Depth Respiratory Pattern Blood Pressure 169/95 H Blood Pressure [Left Arm] Blood Pressure Mean 117 Blood Pressure Mean [Left Arm] Pulse Oximetry 97 95 Oxygen Delivery Method Sepsis Recent Fever Within 48 Hours Sepsis New/Unexplained Change in Mental Status Sepsis Action Taken by Nursing 07/11/24 00:45 07/11/24 00:48 07/11/24 01:00 Temperature Temperature Source Pulse Rate 123 H Pulse Rate [Apical] Pulse Rate from SpO2 Sensor 124 H Pulse Rhythm [Apical] Respiratory Rate 26 H Respiratory Effort / Characteristics Respiratory Depth Respiratory Pattern Blood Pressure 165/93 H 151/76 H Blood Pressure [Left Arm] Blood Pressure Mean 99 92 Blood Pressure Mean [Left Arm] Pulse Oximetry 94 Oxygen Delivery Method Sepsis Recent Fever Within 48 Hours Sepsis New/Unexplained Change in Mental Status Sepsis Action Taken by Nursing 07/11/24 01:06 07/11/24 01:15 07/11/24 01:18 Temperature Temperature Source Pulse Rate 121 H 117 H Pulse Rate [Apical] Pulse Rate from SpO2 Sensor 117 H Pulse Rhythm [Apical] Respiratory Rate 25 H 30 H Respiratory Effort / Characteristics Respiratory Depth Respiratory Pattern Blood Pressure 165/86 H Blood Pressure [Left Arm] Blood Pressure Mean 100 Blood Pressure Mean [Left Arm] Pulse Oximetry 94 Oxygen Delivery Method Sepsis Recent Fever Within 48 Hours Sepsis New/Unexplained Change in Mental Status Sepsis Action Taken by Nursing 07/11/24 01:21 07/11/24 01:36 07/11/24 01:42 Temperature Temperature Source Pulse Rate 119 H 122 H 124 H Pulse Rate [Apical] Pulse Rate from SpO2 Sensor 119 H 121 H 123 H Pulse Rhythm [Apical] Respiratory Rate 23 31 H 28 H Respiratory Effort / Characteristics Respiratory Depth Respiratory Pattern Blood Pressure Blood Pressure [Left Arm] Blood Pressure Mean Blood Pressure Mean [Left Arm] Pulse Oximetry 94 94 95 Oxygen Delivery Method Sepsis Recent Fever Within 48 Hours Sepsis New/Unexplained Change in Mental Status Sepsis Action Taken by Nursing 07/11/24 01:45 07/11/24 01:45 07/11/24 01:57 Temperature Temperature Source Pulse Rate 124 H 127 H Pulse Rate [Apical] Pulse Rate from SpO2 Sensor 125 H 127 H Pulse Rhythm [Apical] Respiratory Rate 33 H 22 Respiratory Effort / Characteristics Respiratory Depth Respiratory Pattern Blood Pressure 148/80 H Blood Pressure [Left Arm] Blood Pressure Mean 83 Blood Pressure Mean [Left Arm] Pulse Oximetry 94 93 Oxygen Delivery Method Sepsis Recent Fever Within 48 Hours Sepsis New/Unexplained Change in Mental Status Sepsis Action Taken by Nursing 07/11/24 02:00 07/11/24 02:24 07/11/24 02:45 Temperature Temperature Source Pulse Rate 129 H Pulse Rate [Apical] Pulse Rate from SpO2 Sensor 128 H Pulse Rhythm [Apical] Respiratory Rate 28 H Respiratory Effort / Characteristics Respiratory Depth Respiratory Pattern Blood Pressure 115/72 117/67 Blood Pressure [Left Arm] Blood Pressure Mean 87 78 Blood Pressure Mean [Left Arm] Pulse Oximetry 93 Oxygen Delivery Method Sepsis Recent Fever Within 48 Hours Sepsis New/Unexplained Change in Mental Status Sepsis Action Taken by Nursing 07/11/24 02:48 07/11/24 02:57 07/11/24 03:00 Temperature Temperature Source Pulse Rate 120 H 120 H Pulse Rate [Apical] 119 H Pulse Rate from SpO2 Sensor 120 H 120 H Pulse Rhythm [Apical] Respiratory Rate 19 24 30 H Respiratory Effort / Characteristics Non-Labored Spontaneous Respiratory Depth Normal Respiratory Pattern Blood Pressure Blood Pressure [Left Arm] 94/57 L Blood Pressure Mean Blood Pressure Mean [Left Arm] 69 Pulse Oximetry 94 93 94 Oxygen Delivery Method Room Air Sepsis Recent Fever Within 48 Hours Sepsis New/Unexplained Change in Mental Status Sepsis Action Taken by Nursing 07/11/24 03:00 07/11/24 03:00 07/11/24 03:09 Temperature Temperature Source Pulse Rate 119 H 119 H Pulse Rate [Apical] Pulse Rate from SpO2 Sensor 119 H 119 H Pulse Rhythm [Apical] Respiratory Rate 30 H 25 H Respiratory Effort / Characteristics Respiratory Depth Respiratory Pattern Blood Pressure 94/57 L Blood Pressure [Left Arm] Blood Pressure Mean 67 Blood Pressure Mean [Left Arm] Pulse Oximetry 93 94 Oxygen Delivery Method Sepsis Recent Fever Within 48 Hours Sepsis New/Unexplained Change in Mental Status Sepsis Action Taken by Nursing 07/11/24 03:15 07/11/24 03:30 07/11/24 03:36 Temperature Temperature Source Pulse Rate 116 H Pulse Rate [Apical] Pulse Rate from SpO2 Sensor Pulse Rhythm [Apical] Respiratory Rate Respiratory Effort / Characteristics Respiratory Depth Respiratory Pattern Blood Pressure 105/55 L 104/68 Blood Pressure [Left Arm] Blood Pressure Mean 63 77 Blood Pressure Mean [Left Arm] Pulse Oximetry Oxygen Delivery Method Sepsis Recent Fever Within 48 Hours Sepsis New/Unexplained Change in Mental Status Sepsis Action Taken by Nursing 07/11/24 03:36 07/11/24 04:00 07/11/24 04:15 Temperature Temperature Source Pulse Rate 116 H Pulse Rate [Apical] Pulse Rate from SpO2 Sensor 116 H Pulse Rhythm [Apical] Respiratory Rate 27 H Respiratory Effort / Characteristics Respiratory Depth Respiratory Pattern Blood Pressure 113/66 114/66 Blood Pressure [Left Arm] Blood Pressure Mean 83 75 Blood Pressure Mean [Left Arm] Pulse Oximetry 92 Oxygen Delivery Method Sepsis Recent Fever Within 48 Hours Sepsis New/Unexplained Change in Mental Status Sepsis Action Taken by Nursing 07/11/24 04:18 07/11/24 04:21 07/11/24 04:27 Temperature Temperature Source Pulse Rate 117 H 115 H 115 H Pulse Rate [Apical] Pulse Rate from SpO2 Sensor 116 H 115 H 115 H Pulse Rhythm [Apical] Respiratory Rate 29 H 25 H 33 H Respiratory Effort / Characteristics Respiratory Depth Respiratory Pattern Blood Pressure Blood Pressure [Left Arm] Blood Pressure Mean Blood Pressure Mean [Left Arm] Pulse Oximetry 94 94 95 Oxygen Delivery Method Sepsis Recent Fever Within 48 Hours Sepsis New/Unexplained Change in Mental Status Sepsis Action Taken by Nursing 07/11/24 04:30 07/11/24 04:33 07/11/24 04:39 Temperature Temperature Source Pulse Rate 117 H 114 H Pulse Rate [Apical] Pulse Rate from SpO2 Sensor 117 H 114 H Pulse Rhythm [Apical] Respiratory Rate 29 H 30 H Respiratory Effort / Characteristics Respiratory Depth Respiratory Pattern Blood Pressure 98/58 L Blood Pressure [Left Arm] Blood Pressure Mean 68 Blood Pressure Mean [Left Arm] Pulse Oximetry 93 94 Oxygen Delivery Method Sepsis Recent Fever Within 48 Hours Sepsis New/Unexplained Change in Mental Status Sepsis Action Taken by Nursing 07/11/24 04:45 07/11/24 04:45 07/11/24 04:51 Temperature Temperature Source Pulse Rate 116 H Pulse Rate [Apical] Pulse Rate from SpO2 Sensor 116 H Pulse Rhythm [Apical] Respiratory Rate 26 H Respiratory Effort / Characteristics Respiratory Depth Respiratory Pattern Blood Pressure 106/60 106/60 Blood Pressure [Left Arm] Blood Pressure Mean 68 68 Blood Pressure Mean [Left Arm] Pulse Oximetry 93 Oxygen Delivery Method Sepsis Recent Fever Within 48 Hours Sepsis New/Unexplained Change in Mental Status Sepsis Action Taken by Nursing 07/11/24 04:54 07/11/24 05:00 07/11/24 05:04 Temperature 36.9 C Temperature Source Oral Pulse Rate 117 H Pulse Rate [Apical] Pulse Rate from SpO2 Sensor 119 H Pulse Rhythm [Apical] Respiratory Rate 30 H Respiratory Effort / Characteristics Respiratory Depth Respiratory Pattern Blood Pressure Blood Pressure [Left Arm] Blood Pressure Mean 42 Blood Pressure Mean [Left Arm] Pulse Oximetry 93 Oxygen Delivery Method Sepsis Recent Fever Within 48 Hours Sepsis New/Unexplained Change in Mental Status Sepsis Action Taken by Nursing 07/11/24 05:04 07/11/24 05:06 07/11/24 05:12 Temperature Temperature Source Pulse Rate 131 H 113 H Pulse Rate [Apical] Pulse Rate from SpO2 Sensor 113 H Pulse Rhythm [Apical] Respiratory Rate 29 H 26 H Respiratory Effort / Characteristics Respiratory Depth Respiratory Pattern Blood Pressure 103/64 Blood Pressure [Left Arm] Blood Pressure Mean 70 Blood Pressure Mean [Left Arm] Pulse Oximetry 93 Oxygen Delivery Method Sepsis Recent Fever Within 48 Hours Sepsis New/Unexplained Change in Mental Status Sepsis Action Taken by Nursing 07/11/24 05:24 07/11/24 05:30 07/11/24 05:42 Temperature Temperature Source Pulse Rate 109 H 108 H Pulse Rate [Apical] Pulse Rate from SpO2 Sensor 108 H 108 H Pulse Rhythm [Apical] Respiratory Rate 19 29 H Respiratory Effort / Characteristics Respiratory Depth Respiratory Pattern Blood Pressure 91/56 L Blood Pressure [Left Arm] Blood Pressure Mean 68 Blood Pressure Mean [Left Arm] Pulse Oximetry 93 92 Oxygen Delivery Method Sepsis Recent Fever Within 48 Hours Sepsis New/Unexplained Change in Mental Status Sepsis Action Taken by Nursing 07/11/24 05:51 Temperature Temperature Source Pulse Rate 107 H Pulse Rate [Apical] Pulse Rate from SpO2 Sensor 108 H Pulse Rhythm [Apical] Respiratory Rate 26 H Respiratory Effort / Characteristics Respiratory Depth Respiratory Pattern Blood Pressure Blood Pressure [Left Arm] Blood Pressure Mean Blood Pressure Mean [Left Arm] Pulse Oximetry 92 Oxygen Delivery Method Sepsis Recent Fever Within 48 Hours Sepsis New/Unexplained Change in Mental Status Sepsis Action Taken by Nursing Laboratory Data 07/13/24 05:29 07/13/24 05:29 Lab Results 07/10/24 07/10/24 07/11/24 Range/Units 23:41 23:45 00:00 WBC 5.49 (4.8-10.8) K/ul RBC 4.68 L (4.70-6.10) M/uL Hgb 13.4 L (14.0-18.0) g/dl Hct 40.4 L (42.0-52.0) % MCV 86.3 (80.0-100.0) fL MCH 28.6 (25.0-34.0) pg MCHC 33.2 (32.0-36.0) g/dL RDW Std Deviation 43.3 (36.4-46.3) fL RDW Coeff of Kacy 13.9 (11.5-14.5) % Plt Count 210 (130-400) K/uL MPV 9.5 (9.4-12.4) fL Immature Gran % (Auto) 1.3 % Neut % (Auto) 82.2 % Lymph % (Auto) 12.2 % Carver % (Auto) 0.4 % Eos % (Auto) 3.5 % Baso % (Auto) 0.4 % Neut # (Auto) 4.52 (1.40-6.50) K/uL Lymph # (Auto) 0.67 L (1.20-3.40) K/uL Carver # (Auto) 0.02 L (0.11-0.59) K/uL Eos # (Auto) 0.19 (0.00-0.50) K/uL Baso # (Auto) 0.02 (0.00-0.20) K/uL Immature Gran # (Auto) 0.07 (0.01-0.20) K/uL Sodium 137 (136-145) mmol/L Potassium 4.3 (3.5-5.1) mmol/L Chloride 101 (98-107) mmol/L Carbon Dioxide 26 (21-32) mmol/L Anion Gap 10 (3-11) BUN 26 H (6-23) mg/dl Creatinine 1.78 H (0.6-1.4) mg/dl Est Cr Clr Drug Dosing 42.0 ml/min Est GFR ( Amer) 40.8 ml/min Est GFR (Non-Af Amer) 35.2 ml/min BUN/Creatinine Ratio 14.6 (10-20) Glucose 195 H (70-99(Fasting)) mg/dl POC Glucose 213 H (70-99) mg/dl Lactate (0.4-2.0) mmol/L Calcium 9.4 (8.6-10.3) mg/dl Magnesium 1.6 L (1.7-2.4) mg/dl Total Bilirubin 0.4 (0.2-1.0) mg/dl Direct Bilirubin 0.1 (0-0.2) mg/dl AST 24 (13-39) U/L ALT 29 (7-52) U/L Alkaline Phosphatase 111 H (34-104) U/L Troponin I High Sens 5.9 (0-20) pg/ml Total Protein 7.5 (6.0-8.3) gm/dl Albumin 4.4 (3.4-5.0) gm/dl Procalcitonin 0.07 (0-0.5) ng/ml Urine Color Urine Appearance (Clear) Urine pH (4.5-7.5) Ur Specific [place] (1.000-1.030) Urine Protein (Negative) Urine Glucose (UA) (Negative) Urine Ketones (Negative) Urine Blood (Negative) Urine Nitrite (Negative) Urine Bilirubin (Negative) Urine Urobilinogen (Negative) Ur Leukocyte Esterase (Negative) Urine WBC (Auto) (0-5) /hpf Urine RBC (Auto) (0-2) /hpf U Hyaline Cast (Auto) (0-2) /lpf U Epithel Cells (Auto) (0-2) /hpf Urine Bacteria (Auto) (None Seen) Adenovirus (PCR) Not Detected (NotDetected) Anaplasma Smear See Comment Babesia Smear See Comment B. pertussis DNA (PCR) Not Detected (NotDetected) B.parapertussis DNA PCR Not Detected (NotDetected) C. pneumoniae DNA (PCR) Not Detected (NotDetected) Coronavirus OC43 (PCR) Not Detected (NotDetected) Coronavirus HKU1 (PCR) Not Detected (NotDetected) Coronavirus 229E (PCR) Not Detected (NotDetected) SARS-CoV-2 (PCR) Not Detected (NotDetected) Coronavirus NL63 (PCR) Not Detected (NotDetected) Enterobacterales (PCR) (NotDetected) Human Metapneumovir PCR Not Detected (NotDetected) Influenza Type A (PCR) Not Detected (NotDetected) Influenza Type B (PCR) Not Detected (NotDetected) Klebsiella oxytoca PCR (NotDetected) M. pneumoniae (PCR) Not Detected (NotDetected) Parainfluenza 1 (PCR) Not Detected (NotDetected) Parainfluenza 2 (PCR) Not Detected (NotDetected) Parainfluenza 3 (PCR) Not Detected (NotDetected) Parainfluenza 4 (PCR) Not Detected (NotDetected) RSV (PCR) Not Detected (NotDetected) Entero/Rhino (PCR) Not Detected (NotDetected) mcr-1 Colistin Res Gene PCR (NotDetected) blaIMP Car res Gene PCR (NotDetected) KPC-Carbap Res Gene PCR (NotDetected) blaNDM Car Res Gene PCR (NotDetected) OXA-48 Carbapenem Resis Gene (PCR) (NotDetected) blaVIM Car Res Gene PCR (NotDetected) CTX-M Gene Resistance (PCR) (NotDetected) Bld Cult ID Panel PCR (NotDetected) 07/11/24 07/11/24 07/11/24 Range/Units 00:26 00:28 01:10 WBC (4.8-10.8) K/ul RBC (4.70-6.10) M/uL Hgb (14.0-18.0) g/dl Hct (42.0-52.0) % MCV (80.0-100.0) fL MCH (25.0-34.0) pg MCHC (32.0-36.0) g/dL RDW Std Deviation (36.4-46.3) fL RDW Coeff of Kacy (11.5-14.5) % Plt Count (130-400) K/uL MPV (9.4-12.4) fL Immature Gran % (Auto) % Neut % (Auto) % Lymph % (Auto) % Carver % (Auto) % Eos % (Auto) % Baso % (Auto) % Neut # (Auto) (1.40-6.50) K/uL Lymph # (Auto) (1.20-3.40) K/uL Carver # (Auto) (0.11-0.59) K/uL Eos # (Auto) (0.00-0.50) K/uL Baso # (Auto) (0.00-0.20) K/uL Immature Gran # (Auto) (0.01-0.20) K/uL Sodium (136-145) mmol/L Potassium (3.5-5.1) mmol/L Chloride (98-107) mmol/L Carbon Dioxide (21-32) mmol/L Anion Gap (3-11) BUN (6-23) mg/dl Creatinine (0.6-1.4) mg/dl Est Cr Clr Drug Dosing ml/min Est GFR ( Amer) ml/min Est GFR (Non-Af Amer) ml/min BUN/Creatinine Ratio (10-20) Glucose (70-99(Fasting)) mg/dl POC Glucose (70-99) mg/dl Lactate 2.1 H* (0.4-2.0) mmol/L Calcium (8.6-10.3) mg/dl Magnesium (1.7-2.4) mg/dl Total Bilirubin (0.2-1.0) mg/dl Direct Bilirubin (0-0.2) mg/dl AST (13-39) U/L ALT (7-52) U/L Alkaline Phosphatase (34-104) U/L Troponin I High Sens (0-20) pg/ml Total Protein (6.0-8.3) gm/dl Albumin (3.4-5.0) gm/dl Procalcitonin (0-0.5) ng/ml Urine Color Yellow Urine Appearance Clear (Clear) Urine pH 5.0 (4.5-7.5) Ur Specific [place] 1.013 (1.000-1.030) Urine Protein Trace H (Negative) Urine Glucose (UA) Negative (Negative) Urine Ketones Negative (Negative) Urine Blood 1+ H (Negative) Urine Nitrite Negative (Negative) Urine Bilirubin Negative (Negative) Urine Urobilinogen Negative (Negative) Ur Leukocyte Esterase 1+ H (Negative) Urine WBC (Auto) 21-50 H (0-5) /hpf Urine RBC (Auto) 0-2 (0-2) /hpf U Hyaline Cast (Auto) 0-2 (0-2) /lpf U Epithel Cells (Auto) 0-2 (0-2) /hpf Urine Bacteria (Auto) 1+ H (None Seen) Adenovirus (PCR) (NotDetected) Anaplasma Smear Babesia Smear B. pertussis DNA (PCR) (NotDetected) B.parapertussis DNA PCR (NotDetected) C. pneumoniae DNA (PCR) (NotDetected) Coronavirus OC43 (PCR) (NotDetected) Coronavirus HKU1 (PCR) (NotDetected) Coronavirus 229E (PCR) (NotDetected) SARS-CoV-2 (PCR) (NotDetected) Coronavirus NL63 (PCR) (NotDetected) Enterobacterales (PCR) DETECTED A (NotDetected) Human Metapneumovir PCR (NotDetected) Influenza Type A (PCR) (NotDetected) Influenza Type B (PCR) (NotDetected) Klebsiella oxytoca PCR DETECTED A (NotDetected) M. pneumoniae (PCR) (NotDetected) Parainfluenza 1 (PCR) (NotDetected) Parainfluenza 2 (PCR) (NotDetected) Parainfluenza 3 (PCR) (NotDetected) Parainfluenza 4 (PCR) (NotDetected) RSV (PCR) (NotDetected) Entero/Rhino (PCR) (NotDetected) mcr-1 Colistin Res Gene PCR Not Detected (NotDetected) blaIMP Car res Gene PCR Not Detected (NotDetected) KPC-Carbap Res Gene PCR Not Detected (NotDetected) blaNDM Car Res Gene PCR Not Detected (NotDetected) OXA-48 Carbapenem Resis Gene (PCR) Not Detected (NotDetected) blaVIM Car Res Gene PCR Not Detected (NotDetected) CTX-M Gene Resistance (PCR) Not Detected (NotDetected) Bld Cult ID Panel PCR See PCR Comment (NotDetected) 07/11/24 Range/Units 02:24 WBC (4.8-10.8) K/ul RBC (4.70-6.10) M/uL Hgb (14.0-18.0) g/dl Hct (42.0-52.0) % MCV (80.0-100.0) fL MCH (25.0-34.0) pg MCHC (32.0-36.0) g/dL RDW Std Deviation (36.4-46.3) fL RDW Coeff of Kacy (11.5-14.5) % Plt Count (130-400) K/uL MPV (9.4-12.4) fL Immature Gran % (Auto) % Neut % (Auto) % Lymph % (Auto) % Carver % (Auto) % Eos % (Auto) % Baso % (Auto) % Neut # (Auto) (1.40-6.50) K/uL Lymph # (Auto) (1.20-3.40) K/uL Carver # (Auto) (0.11-0.59) K/uL Eos # (Auto) (0.00-0.50) K/uL Baso # (Auto) (0.00-0.20) K/uL Immature Gran # (Auto) (0.01-0.20) K/uL Sodium (136-145) mmol/L Potassium (3.5-5.1) mmol/L Chloride (98-107) mmol/L Carbon Dioxide (21-32) mmol/L Anion Gap (3-11) BUN (6-23) mg/dl Creatinine (0.6-1.4) mg/dl Est Cr Clr Drug Dosing ml/min Est GFR ( Amer) ml/min Est GFR (Non-Af Amer) ml/min BUN/Creatinine Ratio (10-20) Glucose (70-99(Fasting)) mg/dl POC Glucose (70-99) mg/dl Lactate 2.7 H* (0.4-2.0) mmol/L Calcium (8.6-10.3) mg/dl Magnesium (1.7-2.4) mg/dl Total Bilirubin (0.2-1.0) mg/dl Direct Bilirubin (0-0.2) mg/dl AST (13-39) U/L ALT (7-52) U/L Alkaline Phosphatase (34-104) U/L Troponin I High Sens (0-20) pg/ml Total Protein (6.0-8.3) gm/dl Albumin (3.4-5.0) gm/dl Procalcitonin (0-0.5) ng/ml Urine Color Urine Appearance (Clear) Urine pH (4.5-7.5) Ur Specific [place] (1.000-1.030) Urine Protein (Negative) Urine Glucose (UA) (Negative) Urine Ketones (Negative) Urine Blood (Negative) Urine Nitrite (Negative) Urine Bilirubin (Negative) Urine Urobilinogen (Negative) Ur Leukocyte Esterase (Negative) Urine WBC (Auto) (0-5) /hpf Urine RBC (Auto) (0-2) /hpf U Hyaline Cast (Auto) (0-2) /lpf U Epithel Cells (Auto) (0-2) /hpf Urine Bacteria (Auto) (None Seen) Adenovirus (PCR) (NotDetected) Anaplasma Smear Babesia Smear B. pertussis DNA (PCR) (NotDetected) B.parapertussis DNA PCR (NotDetected) C. pneumoniae DNA (PCR) (NotDetected) Coronavirus OC43 (PCR) (NotDetected) Coronavirus HKU1 (PCR) (NotDetected) Coronavirus 229E (PCR) (NotDetected) SARS-CoV-2 (PCR) (NotDetected) Coronavirus NL63 (PCR) (NotDetected) Enterobacterales (PCR) (NotDetected) Human Metapneumovir PCR (NotDetected) Influenza Type A (PCR) (NotDetected) Influenza Type B (PCR) (NotDetected) Klebsiella oxytoca PCR (NotDetected) M. pneumoniae (PCR) (NotDetected) Parainfluenza 1 (PCR) (NotDetected) Parainfluenza 2 (PCR) (NotDetected) Parainfluenza 3 (PCR) (NotDetected) Parainfluenza 4 (PCR) (NotDetected) RSV (PCR) (NotDetected) Entero/Rhino (PCR) (NotDetected) mcr-1 Colistin Res Gene PCR (NotDetected) blaIMP Car res Gene PCR (NotDetected) KPC-Carbap Res Gene PCR (NotDetected) blaNDM Car Res Gene PCR (NotDetected) OXA-48 Carbapenem Resis Gene (PCR) (NotDetected) blaVIM Car Res Gene PCR (NotDetected) CTX-M Gene Resistance (PCR) (NotDetected) Bld Cult ID Panel PCR (NotDetected) Administered Medications Acetaminophen (Acetaminophen 325 Mg Tab) 650 mg PO Q4H PRN PRN Reason: Pain or Fever Stop: 08/10/24 06:31 Last Admin: 07/13/24 09:00 Dose: 650 mg Documented By: Admin: 07/13/24 03:02 Dose: 650 mg Documented By: Admin: 07/12/24 20:04 Dose: 650 mg Documented By: Admin: 07/12/24 07:37 Dose: 650 mg Documented By: Admin: 07/11/24 15:39 Dose: 650 mg Documented By: Admin: 07/11/24 07:15 Dose: 650 mg Documented By: ANNA MARIE Allopurinol (Allopurinol 100 Mg Tab) 100 mg PO BID GREG[place]IA Stop: 08/10/24 08:59 Last Admin: 07/13/24 08:33 Dose: 100 mg Documented By: Admin: 07/12/24 20:04 Dose: 100 mg Documented By: Admin: 07/12/24 08:07 Dose: 100 mg Documented By: Admin: 07/11/24 22:38 Dose: 100 mg Documented By: Admin: 07/11/24 09:08 Dose: 100 mg Documented By: ANNA MARIE Atorvastatin Calcium (Atorvastatin 20 Mg Tab) 20 mg PO DAILY [place] Stop: 08/10/24 08:59 Last Admin: 07/13/24 08:33 Dose: 20 mg Documented By: Admin: 07/12/24 08:08 Dose: 20 mg Documented By: Admin: 07/11/24 09:08 Dose: 20 mg Documented By: ANNA MARIE Doxepin HCl (Doxepin Hcl 75 Mg Capsule) 75 mg PO DAILY [place]IA Stop: 08/10/24 08:59 Last Admin: 07/13/24 08:32 Dose: 75 mg Documented By: Admin: 07/12/24 08:07 Dose: 75 mg Documented By: Admin: 07/11/24 09:08 Dose: 75 mg Documented By: ANNA MARIE Finasteride (Finasteride 5 Mg Tab) 5 mg PO DAILY [place] Stop: 08/10/24 08:59 Last Admin: 07/13/24 08:34 Dose: 5 mg Documented By: Admin: 07/12/24 08:08 Dose: 5 mg Documented By: Admin: 07/11/24 09:08 Dose: 5 mg Documented By: ANNA MARIE Heparin Sodium (Porcine) (Heparin Sod 5,000 Unit/0.5 Ml Vial) 5,000 units SQ Q8 [place] Stop: 08/10/24 06:59 Last Admin: 07/13/24 06:21 Dose: 5,000 units Documented By: Admin: 07/12/24 21:42 Dose: 5,000 units Documented By: Admin: 07/12/24 13:25 Dose: 5,000 units Documented By: Admin: 07/12/24 05:15 Dose: 5,000 units Documented By: Admin: 07/11/24 22:38 Dose: 5,000 units Documented By: Admin: 07/11/24 14:43 Dose: 5,000 units Documented By: Admin: 07/11/24 07:04 Dose: Not Given Documented By: ANNA MARIE Sodium Chloride (Nss) 1,000 mls @ 100 mls/hr IV .Q10H [place] Stop: 08/10/24 06:31 Last Admin: 07/13/24 03:09 Dose: 100 mls/hr Documented By: Infusion: 07/13/24 02:42 Dose: Infused Documented By: Admin: 07/12/24 16:42 Dose: 100 mls/hr Documented By: Infusion: 07/12/24 12:08 Dose: Infused Documented By: DLMaria Admin: 07/12/24 07:10 Dose: 100 mls/hr Documented By: Infusion: 07/12/24 07:10 Dose: Infused Documented By: Admin: 07/12/24 02:11 Dose: 125 mls/hr Documented By: Infusion: 07/12/24 00:52 Dose: Infused Documented By: Admin: 07/11/24 16:52 Dose: 125 mls/hr Documented By: Infusion: 07/11/24 14:48 Dose: Infused Documented By: ANNA MARIE Admin: 07/11/24 06:47 Dose: 125 mls/hr Documented By: [facility] Meropenem 500 mg/ Syringe 10 mls @ 2 mls/min IV Q8H GREG[place]IA; Protocol Stop: 07/25/24 19:59 Last Admin: 07/13/24 04:02 Dose: 2 mls/min Documented By: Admin: 07/12/24 19:45 Dose: 2 mls/min Documented By: Admin: 07/12/24 13:17 Dose: 2 mls/min Documented By: Admin: 07/12/24 04:35 Dose: 2 mls/min Documented By: Admin: 07/11/24 20:24 Dose: 2 mls/min Documented By: JILLIAN Doxycycline Hyclate 100 mg/ (Dextrose) 100 mls @ 50 mls/hr IV Q12H [place] Stop: 07/19/24 00:00 Last Infusion: 07/13/24 01:40 Dose: Infused Documented By: Admin: 07/12/24 23:40 Dose: 50 mls/hr Documented By: Infusion: 07/12/24 16:39 Dose: Infused Documented By: Admin: 07/12/24 12:03 Dose: 50 mls/hr Documented By: Infusion: 07/12/24 03:08 Dose: Infused Documented By: Admin: 07/12/24 00:57 Dose: 50 mls/hr Documented By: JILLIAN Sodium Phosphate 15 mmol/ (Sodium Chloride) 255 mls @ 88 mls/hr IV ONE ONE Stop: 07/13/24 11:53 Last Admin: 07/13/24 09:01 Dose: 88 mls/hr Documented By: Insulin Aspart (Insulin Aspart Per Unit Charge) 0 units SC ACHS [place] Stop: 08/10/24 07:29 Last Admin: 07/13/24 08:43 Dose: Not Given Documented By: Admin: 07/12/24 21:19 Dose: 1 units Documented By: JONAH Co-signed By: ROSS Admin: 07/12/24 17:39 Dose: 8 units Documented By: LJ Co-signed By: Admin: 07/12/24 12:08 Dose: 3 units Documented By: LJ Co-signed By: Admin: 07/12/24 08:06 Dose: 1 units Documented By: LJ Co-signed By: TOMMY Admin: 07/11/24 22:38 Dose: 3 units Documented By: JILLIAN Co-signed By: ROSS Admin: 07/11/24 18:53 Dose: 6 units Documented By: LJ Co-signed By: Admin: 07/11/24 13:57 Dose: 8 units Documented By: ANNA MARIE Co-signed By: KATIE Admin: 07/11/24 09:29 Dose: 6 units Documented By: ANNA MARIE Co-signed By: CELE Insulin Glargine (Lantus Per Unit Charge) 10 units SQ DAILY [place] Stop: 08/12/24 08:59 Last Admin: 07/13/24 08:51 Dose: 10 units Documented By: Co-signed By: HERIBERTO Ondansetron HCl (Ondansetron Inj 2 Mg/Ml 2 Ml Vial) 4 mg IV Q6H PRN PRN Reason: Nausea Stop: 08/10/24 06:31 Last Admin: 07/12/24 21:42 Dose: 4 mg Documented By: Admin: 07/11/24 15:43 Dose: 4 mg Documented By: Admin: 07/11/24 08:24 Dose: 4 mg Documented By: ANNA MARIE Vitamin D (Cholecalciferol 25 Mcg (1000 Units) Tab) 25 mcg PO DAILY G[place]IA Stop: 08/10/24 08:59 Last Admin: 07/13/24 08:32 Dose: 25 mcg Documented By: Admin: 07/12/24 08:08 Dose: 25 mcg Documented By: Admin: 07/11/24 09:08 Dose: 25 mcg Documented By: ANNA MARIE Discontinued Medications Sodium Chloride (Nss) 1,000 mls @ 999 mls/hr IV .Q1H1M [place] Stop: 07/11/24 01:15 Last Infusion: 07/11/24 01:49 Dose: Infused Documented By: Admin: 07/11/24 00:26 Dose: 999 mls/hr Documented By: BLADIMIR Sodium Chloride (Nss) 1,000 mls @ 999 mls/hr IV .Q1H1M ONE Stop: 07/11/24 01:45 Last Infusion: 07/11/24 01:49 Dose: Infused Documented By: Admin: 07/11/24 00:55 Dose: 999 mls/hr Documented By: BLADIMIR Famotidine (Pepcid 20mg Iv Push) 20 mg in 5 mls @ 2.5 mls/min IV NOW STA Stop: 07/11/24 01:39 Last Admin: 07/11/24 02:23 Dose: 2.5 mls/min Documented By: BLADIMIR Acetaminophen (Ofirmev) 1,000 mg in 100 mls @ 400 mls/hr IV NOW STA Stop: 07/11/24 02:11 Last Infusion: 07/11/24 03:16 Dose: Infused Documented By: Admin: 07/11/24 02:23 Dose: 400 mls/hr Documented By: BLADIMIR Ceftriaxone Sodium (Rocephin) 2,000 mg in 50 mls @ 100 mls/hr IV NOW STA Stop: 07/11/24 02:26 Last Infusion: 07/11/24 03:16 Dose: Infused Documented By: Admin: 07/11/24 02:23 Dose: 100 mls/hr Documented By: BLADIMIR Sodium Chloride (Nss) 1,000 mls @ 200 mls/hr IV .Q5H [place] Stop: 08/10/24 01:59 Last Infusion: 07/11/24 07:45 Dose: Infused Documented By: ANNA MARIE Admin: 07/11/24 02:44 Dose: 200 mls/hr Documented By: BLADIMIR Sodium Chloride (Nss) 1,000 mls @ 999 mls/hr IV .Q1H1M ONE Stop: 07/11/24 04:23 Last Infusion: 07/11/24 05:17 Dose: Infused Documented By: Admin: 07/11/24 03:40 Dose: 999 mls/hr Documented By: BLADIMIR Piperacillin Sod/Tazobactam Sod (Zosyn) 4.5 gm in 100 mls @ 25 mls/hr IV Q8H [place] Stop: 07/21/24 11:59 Last Infusion: 07/11/24 18:06 Dose: Infused Documented By: Admin: 07/11/24 13:13 Dose: 25 mls/hr Documented By: ANNA MARIE Piperacillin Sod/Tazobactam Sod (Zosyn) 4.5 gm in 100 mls @ 200 mls/hr IV NOW STA Stop: 07/11/24 06:30 Last Infusion: 07/11/24 06:52 Dose: Infused Documented By: Admin: 07/11/24 06:19 Dose: 200 mls/hr Documented By: BLADIMIR Vancomycin HCl 2,250 mg/ (Sodium Chloride) 545 mls @ 200 mls/hr IV NOW ONE Stop: 07/11/24 08:58 Last Infusion: 07/11/24 09:36 Dose: Infused Documented By: ANNA MARIE Admin: 07/11/24 06:48 Dose: 200 mls/hr Documented By: BLADIMIR Sodium Chloride (Nss) 500 mls @ 500 mls/hr IV .Q1H [place] Stop: 07/11/24 08:14 Last Infusion: 07/11/24 08:15 Dose: Infused Documented By: ANNA MARIE Admin: 07/11/24 07:15 Dose: 500 mls/hr Documented By: ANNA MARIE Magnesium Sulfate/Dextrose (Magnesium Sulfate / D5w) 1 gm in 100 mls @ 50 mls/hr IV Q2H [place] Stop: 07/11/24 11:14 Last Infusion: 07/11/24 10:37 Dose: Infused Documented By: ANNA MARIE Admin: 07/11/24 09:37 Dose: 100 mls/hr Documented By: ANNA MARIE Infusion: 07/11/24 09:16 Dose: Infused Documented By: ANNA MARIE Admin: 07/11/24 07:15 Dose: 50 mls/hr Documented By: ANNA MARIE Methylprednisolone 40 mg/ (Syringe) 0.64 mls @ 1.5 mls/min IV DAILY G[place]IA Stop: 08/10/24 08:59 Last Admin: 07/11/24 10:03 Dose: 1.5 mls/min Documented By: ANNA MARIE Cefepime HCl 2,000 mg/ Syringe 20 mls @ 5 mls/min IV Q12H [place] Stop: 07/25/24 17:59 Last Admin: 07/11/24 19:13 Dose: 5 mls/min Documented By: LJ Prochlorperazine 5 mg/ Syringe 5 mls @ 5 mls/min IV ONE ONE Stop: 07/11/24 16:35 Last Admin: 07/11/24 16:48 Dose: 5 mls/min Documented By: TRAM Acetaminophen (Ofirmev) 1,000 mg in 100 mls @ 400 mls/hr IV NOW STA Stop: 07/11/24 18:47 Last Infusion: 07/11/24 19:22 Dose: Infused Documented By: Admin: 07/11/24 18:49 Dose: 400 mls/hr Documented By: LJ Promethazine HCl (Phenergan) 6.25 mg in 50.25 mls @ 201 mls/hr IV NOW STA Stop: 07/12/24 22:39 Last Infusion: 07/12/24 23:01 Dose: Infused Documented By: Admin: 07/12/24 22:46 Dose: 201 mls/hr Documented By: CR Calcium Gluconate () 1,000 mg in 60 mls @ 240 mls/hr IV Q15M [facility] Stop: 07/13/24 08:44 Last Infusion: 07/13/24 09:03 Dose: Infused Documented By: Admin: 07/13/24 08:45 Dose: 240 mls/hr Documented By: Infusion: 07/13/24 08:42 Dose: Infused Documented By: Admin: 07/13/24 08:27 Dose: 240 mls/hr Documented By: Insulin Glargine (Lantus Per Unit Charge) 7 units SQ DAILY [facility] Stop: 08/10/24 08:59 Last Admin: 07/12/24 08:14 Dose: 7 units Documented By: LJ Co-signed By: TOMMY Admin: 07/11/24 09:29 Dose: 7 units Documented By: ANNA MARIE Co-signed By: CELE Ketorolac Tromethamine (Ketorolac Tromethamine 15 Mg/Ml Vial) 15 mg IV NOW ONE Stop: 07/11/24 08:08 Last Admin: 07/11/24 08:14 Dose: 15 mg Documented By: ANNA MARIE Ketorolac Tromethamine (Ketorolac Tromethamine 15 Mg/Ml Vial) 15 mg IV NOW ONE Stop: 07/11/24 18:01 Last Admin: 07/11/24 18:06 Dose: 15 mg Documented By: LJ Levalbuterol HCl (Levalbuterol 1.25 Mg/3 Ml Neb) 1.25 mg NEB QIDR [facility] Stop: 08/10/24 06:59 Last Admin: 07/13/24 07:06 Dose: 1.25 mg Documented By: Admin: 07/12/24 19:30 Dose: 1.25 mg Documented By: Admin: 07/12/24 14:53 Dose: 1.25 mg Documented By: Admin: 07/12/24 10:49 Dose: 1.25 mg Documented By: Admin: 07/12/24 07:16 Dose: 1.25 mg Documented By: Admin: 07/12/24 06:05 Dose: Not Given Documented By: Admin: 07/11/24 19:44 Dose: Not Given Documented By: Admin: 07/11/24 14:39 Dose: Not Given Documented By: Admin: 09/03/24 10:27 Dose: Not Given Documented By: Admin: 07/11/24 08:10 Dose: 1.25 mg Documented By: CELESTE Lorazepam (Lorazepam 0.5 Mg Tab) 0.5 mg SL NOW STA Stop: 07/12/24 06:53 Last Admin: 07/12/24 07:08 Dose: 0.5 mg Documented By: JILLIAN Ondansetron HCl (Ondansetron Inj 2 Mg/Ml 2 Ml Vial) 4 mg IV NOW STA Stop: 07/11/24 18:37 Last Admin: 07/11/24 18:41 Dose: 4 mg Documented By: LJ Prochlorperazine (Prochlorperazine 5 Mg/Ml 2 Ml Vial) Confirm Administered Dose 10 mg .ROUTE .STK-MED ONE Stop: 07/11/24 16:45 Last Admin: 07/11/24 16:48 Dose: Not Given Documented By: TRAM Imaging Data Radiologist's Impression: Chest X-Ray 07/11/24 00:09 XR chest 1V portable CLINICAL HISTORY: Sepsis. COMPARISON STUDY: Chest radiograph February 04, 2021. FINDINGS: Lung volumes are normal. Lungs are clear. There is no pneumothorax or pleural effusion. Cardiomediastinal silhouette is stable. There is no evidence for pulmonary edema. IMPRESSION: No acute cardiopulmonary findings. No significant change in appearance of the chest. ACT 112: Negative or not required by law. Electronically signed by: Aly Narayan M.D. 07/11/2024 6:58 AM Abdomen/Pelvis CT 07/11/24 01:58 Exam(s): CT ABDOMEN + PELVIS Without Contrast EXAM: CT Abdomen and Pelvis Without Intravenous Contrast CLINICAL HISTORY: Reason for exam: uti, allyn. TECHNIQUE: Axial computed tomography images of the abdomen and pelvis without intravenous contrast. CTDI is 28.14 mGy and DLP is 1535.01 mGy-cm. Automated exposure control was utilized for the study. A dose lowering technique was utilized adhering to the principles of ALARA. COMPARISON: No relevant prior studies available. FINDINGS: Lung bases: Unremarkable. No mass. No consolidation. ABDOMEN: Liver: Unremarkable. Gallbladder and bile ducts: Cholelithiasis. No ductal dilation. Pancreas: Unremarkable. No ductal dilation. Spleen: Unremarkable. No splenomegaly. Adrenals: Unremarkable. No mass. Kidneys and ureters: Dense RIGHT renal lesion measures 7 mm, which may represent a hemorrhagic or proteinaceous cyst. Bilateral renal cysts, measuring up to 8.2 cm in the LEFT lower pole. Atrophy of the RIGHT kidney. No obstructing stones. No hydronephrosis. Stomach and bowel: Duodenal diverticulum measures 3.8 cm. Diverticulosis, without acute diverticulitis. No small bowel obstruction. No free intraperitoneal air. PELVIS: Appendix: No findings to suggest acute appendicitis. Bladder: Nonobstructing right-sided bladder stone measures approximately 1.5 cm. Reproductive: Unremarkable as visualized. ABDOMEN and PELVIS: Intraperitoneal space: Unremarkable. No free air. No significant fluid collection. Bones/joints: Degenerative changes of the spine. No acute fracture. No dislocation. Soft tissues: Unremarkable. Vasculature: Atherosclerotic changes of the aorta. No abdominal aortic aneurysm. Lymph nodes: Unremarkable. No enlarged lymph nodes. IMPRESSION: 1. Cholelithiasis. 2. Nonobstructing right-sided bladder stone measures approximately 1.5 cm. 3. Duodenal diverticulum measures 3.8 cm. 4. Diverticulosis, without acute diverticulitis. No small bowel obstruction. No free intraperitoneal air. Electronically signed by: Ventura Kuhn MD 07/11/24 03:13 AM Discharge Plan Visit Data Chief Complaint: Illness Stated Complaint: SHAKY,VOMITING ED Provider: Luzma Petersen Discharge Problem: Fatigue, Nausea, UTI (urinary tract infection) Patient Disposition: Admitted As Inpatient Discharge Instructions Interventions: ED Discharge Assessment Last Done: 07/11/24 06:32
[2024-07-11 01:54] LABS: Bacteria Urine Automated 1+ (None Seen)
[2024-07-11] MEDS: ACETAMINOPHEN 1,000 MG/100 ML VIAL IV STA ×2 (02:23→18:49)
[2024-07-11] MEDS: cefTRIAXone SODIUM 2,000 MG/50 ML BAG IV STA (02:23)
[2024-07-11] MEDS: FAMOTIDINE 20MG IV PUSH 20 MG/5 ML SYR IV STA (02:23)
--- NOTE | 2024-07-11 03:14 | CT Scan Report ---
Exam(s): CT ABDOMEN + PELVIS Without Contrast EXAM: CT Abdomen and Pelvis Without Intravenous Contrast CLINICAL HISTORY: Reason for exam: uti, allyn. TECHNIQUE: Axial computed tomography images of the abdomen and pelvis without intravenous contrast. CTDI is 28.14 mGy and DLP is 1535.01 mGy-cm. Automated exposure control was utilized for the study. A dose lowering technique was utilized adhering to the principles of ALARA. COMPARISON: No relevant prior studies available. FINDINGS: Lung bases: Unremarkable. No mass. No consolidation. ABDOMEN: Liver: Unremarkable. Gallbladder and bile ducts: Cholelithiasis. No ductal dilation. Pancreas: Unremarkable. No ductal dilation. Spleen: Unremarkable. No splenomegaly. Adrenals: Unremarkable. No mass. Kidneys and ureters: Dense RIGHT renal lesion measures 7 mm, which may represent a hemorrhagic or proteinaceous cyst. Bilateral renal cysts, measuring up to 8.2 cm in the LEFT lower pole. Atrophy of the RIGHT kidney. No obstructing stones. No hydronephrosis. Stomach and bowel: Duodenal diverticulum measures 3.8 cm. Diverticulosis, without acute diverticulitis. No small bowel obstruction. No free intraperitoneal air. PELVIS: Appendix: No findings to suggest acute appendicitis. Bladder: Nonobstructing right-sided bladder stone measures approximately 1.5 cm. Reproductive: Unremarkable as visualized. ABDOMEN and PELVIS: Intraperitoneal space: Unremarkable. No free air. No significant fluid collection. Bones/joints: Degenerative changes of the spine. No acute fracture. No dislocation. Soft tissues: Unremarkable. Vasculature: Atherosclerotic changes of the aorta. No abdominal aortic aneurysm. Lymph nodes: Unremarkable. No enlarged lymph nodes. IMPRESSION: 1. Cholelithiasis. 2. Nonobstructing right-sided bladder stone measures approximately 1.5 cm. 3. Duodenal diverticulum measures 3.8 cm. 4. Diverticulosis, without acute diverticulitis. No small bowel obstruction. No free intraperitoneal air. Electronically signed by: Ventura Kuhn MD 07/11/24 03:13 AM
[2024-07-11] MEDS ORDERED: VANCOMYCIN CONSULT ACTIVE PRN (05:55)
[2024-07-11] MEDS ORDERED: VANCOMYCIN HCL 1,000 MG in SODIUM CHLORIDE 0.9% 250 ML IV SCH ×2 (06:00→22:00)
[2024-07-11] MEDS: PIPERACILLIN/TAZOBACTAM 4.5 GM/100 ML BAG IV STA (06:19)
[2024-07-11] MEDS ORDERED: GLUCAGON FOR INJ 1 MG VIAL SQ PRN (06:32)
[2024-07-11] MEDS ORDERED: NITROGLYCERIN SL 0.4 MG/TAB TAB SL PRN (06:32)
[2024-07-11] MEDS ORDERED: GLUCOSE 40% GEL 15 GM TUBE PO PRN (06:32)
[2024-07-11] MEDS ORDERED: CARBOHYDRATES FOR HYPOGLYCEMIA PO PRN (06:32)
[2024-07-11] MEDS ORDERED: GLUCOSE 10 TAB/TUBE PO PRN (06:32)
[2024-07-11] MEDS ORDERED: DEXTROSE 50% 50 ML SYRINGE IV PRN (06:32)
[2024-07-11] MEDS: VANCOMYCIN HCL 2,250 MG in SODIUM CHLORIDE 0.9% 500 ML IV ONE (06:48)
--- NOTE | 2024-07-11 07:00 | XRay Report ---
XR chest 1V portable CLINICAL HISTORY: Sepsis. COMPARISON STUDY: Chest radiograph February 04, 2021. FINDINGS: Lung volumes are normal. Lungs are clear. There is no pneumothorax or pleural effusion. Car diomediastinal silhouette is stable. There is no evidence for pulmonary edema. IMPRESSION: No acute cardiopulmonary findings. No significant change in appearance of the chest. ACT 112: Negative or not required by law. Electronically signed by: Aly Narayan M.D. 07/11/2024 6:58 AM
[2024-07-11] MEDS: HEPARIN SOD 5,000 UNIT/0.5 ML VIAL SQ SCH (07:04)
[2024-07-11] MEDS: MAGNESIUM SULFATE / D5W 1 GM/100 ML BAG IV SCH (07:15)
[2024-07-11] MEDS: ACETAMINOPHEN 325 MG TAB PO PRN (07:15)
[2024-07-11] MEDS: SODIUM CHLORIDE 0.9% 500 ML IV SCH (07:15)
--- NOTE | 2024-07-11 07:50 | History & Physical Report ---
Date of Service July 11, 2024 Assessment & Plan (1) Sepsis: Plan: 78-year-old male with past medical history significant for type 2 diabetes, CKD stage III, hypercholesterolemia, right bundle branch, BPH, chronic bilateral back pain, general anxiety disorder, history of tobacco abuse, history of gout, history of shingles, history of kidney stones, self Catheterizes urinary bladder 4 times a day comes because of sepsis and UTI. Yesterday he mowed his grass on a tractor and when he came inside home he was feeling very weak and tired and fatigued . And was having a lot of shaking chills, felt nauseated and vomited twice.. Denies any tick bites. Currently feeling slightly better. Has mild headache. Mild back pain. Denies any chest pain. No shortness of breath. No cough. No runny nose or sore throat. No abdominal pain. Normal bowel moveme nts. Sepsis UTI Blood pressure soft and tachycardia Lactic acid 2.1 and repeat 2.7 IV fluids IV Vanco and Zosyn Close monitor CT scan shows bladder stone but no obstructing lesions-follows with urology Will follow the cultures Possible mild COPD exacerbation Quit smoking 2012 smoked half a pack for 40 years Bilateral wheezing on exam Nebs [id number] and as needed Short course of steroids Close monitor YAW on CKD stage III Baseline creatinine 1.3-1.4 Presented creatinine 1.7 Avoid nephrotoxic agents Getting fluids Follow repeat labs Type 2 diabetes Hold home medications Lantus and sliding scale Closely monitor blood sugars while on steroids BPH On dutasteride Straight caths 4 times daily Monitor for urinary retention Hyperlipidemia On statin Gout On allopurinol Hypomagnesia Will replace Follow labs Generalized anxiety disorder On doxepin DVT prophylaxis Heparin subcu Disposition Telemetry Full code. Admission and Anticipated Discharge Date Admission Date: July 11, 2024 History of Present Illness Chief Complaint: Sepsis and UTI Primary Care Provider: Connor Kee MD 78-year-old male with past medical history significant for type 2 diabetes, CKD stage III, hypercholesterolemia, right bundle branch, BPH, chronic bilateral back pain, general anxiety disorder, history of tobacco abuse, history of gout, history of shingles, history of kidney stones, self Catheterizes urinary bladder 4 times a day comes because of sepsis and UTI. Yesterday he mowed his grass on a tractor and when he came inside home he was feeling very weak and tired and fatigued . And was having a lot of shaking chills, felt nauseated and vomited twice.. Denies any tick bites. Currently feeling slightly better. Has mild headache. Mild back pain. Denies any chest pain. No shortness of breath. No cough. No runny nose or sore throat. No abdominal pain. Normal bowel movements. Past medical history. As mentioned above Past surgical history. Injection of lumbosacral spine. Laparoscopic appendectomy. Social history. . Quit smoking proximal 0.5 pack a day for 40 years. No alcohol use. No drug use. Family history. Father had heart disorder. Gallbladder disease. Mother had kidney problems. Allergies Allergy/AdvReac Type Severity Reaction Status Date / Time No Known Allergies Allergy Verified 10/07/23 09:14 Home Medications Medication Instructions Recorded Confirmed Type allopurinol 100 mg tablet 100 mg PO BID 07/11/24 07/11/24 History atorvastatin 20 mg tablet 20 mg PO DAILY 07/11/24 07/11/24 History cholecalciferol (vitamin D3) 25 25 mcg PO DAILY 07/11/24 07/11/24 History mcg (1,000 unit) tablet doxepin 75 mg capsule 75 mg PO DAILY 07/11/24 07/11/24 History dutasteride 0.5 mg capsule 0.5 mg PO DAILY 07/11/24 07/11/24 History glipizide 5 mg tablet 5 mg PO DAILY 07/11/24 07/11/24 History methenamine hippurate 1 gram tablet 1 g PO BID 07/11/24 07/11/24 History Past Med/Surg History Problem List (Updated 07/11/24 @ 07:54 by Chris Lyon MD) Sepsis Nausea (Acute) Fatigue (Acute) Neurogenic bladder, flaccid Uric acid kidney stone Urinary retention History of laparoscopic appendectomy (02/04/21) Laparoscopic Appendectomy Dr. Hutchinson 02/04/2021 Encounter for pre-operative examination Abdominal pain (Acute) Leukocytosis (Acute) Acute appendicitis (Acute) Lumbar canal stenosis (Acute) Lumbosacral radiculopathy at L5 (Acute) Ureteral stone (Acute) UTI (urinary tract infection) (Acute) Kidney stone (Chronic) Chronic back pain (Chronic) Acute kidney injury (Acute) Intractable pain (Acute) Renal colic (Acute 10/18/14) Medical History History of back problems Kidney stone Surgical History History of laparoscopic appendectomy (02/04/21) History of ureter stent (10/19/14) Social History Smoking Status: Never smoker Second Hand Exposure: No; Do You Dip or Chew Tobacco: No; Hx Alcohol Use: No Hx Substance Use: No Preferred Language: [place] Communication Ability: Effective Mail Messenger Contractor Required: No Beliefs That Will Affect Care: None Current Living Situation: Spouse Feels Safe at Home: Yes Assistive Devices: Walker Review of Systems Review of Systems: All systems reviewed & are unremarkable except as noted in HPI & below Physical Exam Physical Exam: General- Not in distress. Head- atraumatic Eyes- PERRL. ENT- oropharynx clear Neck- supple, no JVD. Lungs- clear to auscultation b/l wheezing, no crackles. Heart- regular rhythm;tachycardia no murmur, no gallop. Abdomen- normal bowel sounds, soft, nontender, no distension Extremities- no pretibial edema, no erythema seen Neuro- alert, oriented PERRL, EOMI; no facial palsy; no dysarthria; moves extremities Results & Data Results & Data Vital Signs (Past 12 Hours) Vital Signs Temp Pulse Pulse Resp BP BP Pulse Ox 07/11/24 07:05 110 H 07/11/24 07:01 108 H 94/58 L 95 07/11/24 06:32 07/11/24 06:21 110 H 28 H 94 07/11/24 06:15 110 H 19 94 07/11/24 06:00 99/58 L 07/11/24 06:00 107 H 28 H 93 07/11/24 05:51 107 H 26 H 92 07/11/24 05:42 108 H 29 H 92 07/11/24 05:30 91/56 L 07/11/24 05:24 109 H 19 93 07/11/24 05:12 113 H 26 H 93 07/11/24 05:06 131 H 29 H 07/11/24 05:04 103/64 07/11/24 05:00 36.9 C 07/11/24 04:54 117 H 30 H 93 07/11/24 04:51 116 H 26 H 93 07/11/24 04:45 106/60 07/11/24 04:45 106/60 07/11/24 04:39 114 H 30 H 94 07/11/24 04:33 117 H 29 H 93 07/11/24 04:30 98/58 L 07/11/24 04:27 115 H 33 H 95 07/11/24 04:21 115 H 25 H 94 07/11/24 04:18 117 H 29 H 94 07/11/24 04:15 114/66 07/11/24 04:00 113/66 07/11/24 03:36 116 H 27 H 92 07/11/24 03:36 116 H 07/11/24 03:30 104/68 07/11/24 03:15 105/55 L 07/11/24 03:09 119 H 25 H 94 07/11/24 03:00 119 H 30 H 93 07/11/24 03:00 94/57 L 07/11/24 03:00 119 H 30 H 94/57 L 94 07/11/24 02:57 120 H 24 93 07/11/24 02:48 120 H 19 94 07/11/24 02:45 117/67 07/11/24 02:24 129 H 28 H 93 07/11/24 02:00 115/72 07/11/24 01:57 127 H 22 93 07/11/24 01:45 148/80 H 07/11/24 01:45 124 H 33 H 94 07/11/24 01:42 124 H 28 H 95 07/11/24 01:36 122 H 31 H 94 07/11/24 01:21 119 H 23 94 07/11/24 01:18 117 H 30 H 94 07/11/24 01:15 165/86 H 07/11/24 01:06 121 H 25 H 07/11/24 01:00 151/76 H 07/11/24 00:48 123 H 26 H 94 07/11/24 00:45 165/93 H 07/11/24 00:39 125 H 22 95 07/11/24 00:33 121 H 32 H 97 07/11/24 00:31 169/95 H 07/11/24 00:23 36.9 C 121 H 09/03/24 00:23 122 H 30 H 95 07/11/24 00:15 122 H 35 H 96 07/11/24 00:03 115 H 28 H 07/11/24 00:00 157/79 H 07/10/24 23:45 119/80 07/10/24 23:45 119/80 07/10/24 23:45 118 H 30 H 94 07/10/24 23:45 71 24 119/80 94 07/10/24 23:42 117 H 32 H 96 07/10/24 23:38 121 H 07/10/24 23:29 36.7 C 127 H 20 138/72 92 Pulse Ox O2 Del Method O2 Del Method 07/11/24 07:05 07/11/24 07:01 Room Air 07/11/24 06:32 95 Room Air 07/11/24 06:21 07/11/24 06:15 07/11/24 06:00 07/11/24 06:00 07/11/24 05:51 07/11/24 05:42 07/11/24 05:30 07/11/24 05:24 07/11/24 05:12 07/11/24 05:06 07/11/24 05:04 07/11/24 05:00 07/11/24 04:54 07/11/24 04:51 07/11/24 04:45 07/11/24 04:45 07/11/24 04:39 07/11/24 04:33 07/11/24 04:30 07/11/24 04:27 07/11/24 04:21 07/11/24 04:18 07/11/24 04:15 07/11/24 04:00 07/11/24 03:36 07/11/24 03:36 07/11/24 03:30 07/11/24 03:15 07/11/24 03:09 07/11/24 03:00 07/11/24 03:00 07/11/24 03:00 Room Air 07/11/24 02:57 07/11/24 02:48 07/11/24 02:45 07/11/24 02:24 07/11/24 02:00 07/11/24 01:57 07/11/24 01:45 07/11/24 01:45 07/11/24 01:42 07/11/24 01:36 07/11/24 01:21 07/11/24 01:18 07/11/24 01:15 07/11/24 01:06 07/11/24 01:00 07/11/24 00:48 07/11/24 00:45 07/11/24 00:39 07/11/24 00:33 07/11/24 00:31 07/11/24 00:23 07/11/24 00:23 Room Air 07/11/24 00:15 07/11/24 00:03 07/11/24 00:00 07/10/24 23:45 07/10/24 23:45 07/10/24 23:45 07/10/24 23:45 Room Air 07/10/24 23:42 07/10/24 23:38 07/10/24 23:29 Room Air Diagnostic Findings Laboratory Results WBC 5.49 K/ul (4.8-10.8) 07/10/24 23:41 RBC 4.68 M/uL (4.70-6.10) L 07/10/24 23:41 Hgb 13.4 g/dl (14.0-18.0) L 07/10/24 23:41 Hct 40.4 % (42.0-52.0) L 07/10/24 23:41 MCV 86.3 fL (80.0-100.0) 07/10/24 23:41 MCH 28.6 pg (25.0-34.0) 07/10/24 23:41 MCHC 33.2 g/dL (32.0-36.0) 07/10/24 23:41 RDW Std Deviation 43.3 fL (36.4-46.3) 07/10/24 23:41 RDW Coeff of Kacy 13.9 % (11.5-14.5) 07/10/24 23:41 Plt Count 210 K/uL (130-400) 07/10/24 23:41 MPV 9.5 fL (9.4-12.4) 07/10/24 23:41 Immature Gran % (Auto) 1.3 % 07/10/24 23:41 Neut % (Auto) 82.2 % 07/10/24 23:41 Lymph % (Auto) 12.2 % 07/10/24 23:41 [place] % (Auto) 0.4 % 07/10/24 23:41 Eos % (Auto) 3.5 % 07/10/24 23:41 Baso % (Auto) 0.4 % 07/10/24 23:41 Neut # (Auto) 4.52 K/uL (1.40-6.50) 07/10/24 23:41 Lymph # (Auto) 0.67 K/uL (1.20-3.40) L 07/10/24 23:41 [place] # (Auto) 0.02 K/uL (0.11-0.59) L 07/10/24 23:41 Eos # (Auto) 0.19 K/uL (0.00-0.50) 07/10/24 23:41 Baso # (Auto) 0.02 K/uL (0.00-0.20) 07/10/24 23:41 Immature Gran # (Auto) 0.07 K/uL (0.01-0.20) 07/10/24 23:41 Sodium 137 mmol/L (136-145) 07/10/24 23:41 Potassium 4.3 mmol/L (3.5-5.1) 07/10/24 23:41 Chloride 101 mmol/L (98-107) 07/10/24 23:41 Carbon Dioxide 26 mmol/L (21-32) 07/10/24 23:41 Anion Gap 10 (3-11) 07/10/24 23:41 BUN 26 mg/dl (6-23) H 07/10/24 23:41 Creatinine 1.78 mg/dl (0.6-1.4) H 07/10/24 23:41 Est Cr Clr Drug Dosing 42.0 ml/min 07/10/24 23:41 Est GFR ( Amer) 40.8 ml/min 07/10/24 23:41 Est GFR (Non-Af Amer) 35.2 ml/min 07/10/24 23:41 BUN/Creatinine Ratio 14.6 (10-20) 07/10/24 23:41 Glucose 195 mg/dl (70-99(Fasting)) H 07/10/24 23:41 POC Glucose 213 mg/dl (70-99) H 07/10/24 23:45 Lactate 2.7 mmol/L (0.4-2.0) H* 07/11/24 02:24 Calcium 9.4 mg/dl (8.6-10.3) 07/10/24 23:41 Magnesium 1.6 mg/dl (1.7-2.4) L 07/10/24 23:41 Total Bilirubin 0.4 mg/dl (0.2-1.0) 07/10/24 23:41 Direct Bilirubin 0.1 mg/dl (0-0.2) 07/10/24 23:41 AST 24 U/L (13-39) 07/10/24 23:41 ALT 29 U/L (7-52) 07/10/24 23:41 Alkaline Phosphatase 111 U/L (34-104) H 07/10/24 23:41 Troponin I High Sens 5.9 pg/ml (0-20) 07/10/24 23:41 Total Protein 7.5 gm/dl (6.0-8.3) 07/10/24 23:41 Albumin 4.4 gm/dl (3.4-5.0) 07/10/24 23:41 Procalcitonin 0.07 ng/ml (0-0.5) 07/10/24 23:41 Urine Color Yellow 07/11/24 01:10 Urine Appearance Clear (Clear) 07/11/24 01:10 Urine pH 5.0 (4.5-7.5) 07/11/24 01:10 Ur Specific [place] 1.013 (1.000-1.030) 07/11/24 01:10 Urine Protein Trace (Negative) H 07/11/24 01:10 Urine Glucose (UA) Negative (Negative) 07/11/24 01:10 Urine Ketones Negative (Negative) 07/11/24 01:10 Urine Blood 1+ (Negative) H 07/11/24 01:10 Urine Nitrite Negative (Negative) 07/11/24 01:10 Urine Bilirubin Negative (Negative) 07/11/24 01:10 Urine Urobilinogen Negative (Negative) 07/11/24 01:10 Ur Leukocyte Esterase 1+ (Negative) H 07/11/24 01:10 Urine WBC (Auto) 21-50 /hpf (0-5) H 07/11/24 01:10 Urine RBC (Auto) 0-2 /hpf (0-2) 07/11/24 01:10 U Hyaline Cast (Auto) 0-2 /lpf (0-2) 07/11/24 01:10 U Epithel Cells (Auto) 0-2 /hpf (0-2) 07/11/24 01:10 Urine Bacteria (Auto) 1+ (None Seen) H 07/11/24 01:10 Adenovirus (PCR) Not Detected (NotDetected) 07/11/24 00:00 Anaplasma Smear See Comment 07/10/24 23:41 Babesia Smear See Comment 07/10/24 23:41 B. pertussis DNA (PCR) Not Detected (NotDetected) 07/11/24 00:00 B.parapertussis DNA PCR Not Detected (NotDetected) 07/11/24 00:00 C. pneumoniae DNA (PCR) Not Detected (NotDetected) 07/11/24 00:00 Coronavirus OC43 (PCR) Not Detected (NotDetected) 07/11/24 00:00 Coronavirus HKU1 (PCR) Not Detected (NotDetected) 07/11/24 00:00 Coronavirus 229E (PCR) Not Detected (NotDetected) 07/11/24 00:00 SARS-CoV-2 (PCR) Not Detected (NotDetected) 07/11/24 00:00 Coronavirus NL63 (PCR) Not Detected (NotDetected) 07/11/24 00:00 Human Metapneumovir PCR Not Detected (NotDetected) 07/11/24 00:00 Influenza Type A (PCR) Not Detected (NotDetected) 07/11/24 00:00 Influenza Type B (PCR) Not Detected (NotDetected) 07/11/24 00:00 M. pneumoniae (PCR) Not Detected (NotDetected) 07/11/24 00:00 Parainfluenza 1 (PCR) Not Detected (NotDetected) 07/11/24 00:00 Parainfluenza 2 (PCR) Not Detected (NotDetected) 07/11/24 00:00 Parainfluenza 3 (PCR) Not Detected (NotDetected) 07/11/24 00:00 Parainfluenza 4 (PCR) Not Detected (NotDetected) 07/11/24 00:00 RSV (PCR) Not Detected (NotDetected) 07/11/24 00:00 Entero/Rhino (PCR) Not Detected (NotDetected) 07/11/24 00:00 Impressions Chest X-Ray 07/11/24 00:09 XR chest 1V portable CLINICAL HISTORY: Sepsis. COMPARISON STUDY: Chest radiograph February 04, 2021. FINDINGS: Lung volumes are normal. Lungs are clear. There is no pneumothorax or pleural effusion. Cardiomediastinal silhouette is stable. There is no evidence for pulmonary edema. IMPRESSION: No acute cardiopulmonary findings. No significant change in appearance of the chest. ACT 112: Negative or not required by law. Electronically signed by: Aly Narayan M.D. 07/11/2024 6:58 AM Abdomen/Pelvis CT 07/11/24 01:58 Exam(s): CT ABDOMEN + PELVIS Without Contrast EXAM: CT Abdomen and Pelvis Without Intravenous Contrast CLINICAL HISTORY: Reason for exam: uti, yaw. TECHNIQUE: Axial computed tomography images of the abdomen and pelvis without intravenous contrast. CTDI is 28.14 mGy and DLP is 1535.01 mGy-cm. Automated exposure control was utilized for the study. A dose lowering technique was utilized adhering to the principles of ALARA. COMPARISON: No relevant prior studies available. FINDINGS: Lung bases: Unremarkable. No mass. No consolidation. ABDOMEN: Liver: Unremarkable. Gallbladder and bile ducts: Cholelithiasis. No ductal dilation. Pancreas: Unremarkable. No ductal dilation. Spleen: Unremarkable. No splenomegaly. Adrenals: Unremarkable. No mass. Kidneys and ureters: Dense RIGHT renal lesion measures 7 mm, which may represent a hemorrhagic or proteinaceous cyst. Bilateral renal cysts, measuring up to 8.2 cm in the LEFT lower pole. Atrophy of the RIGHT kidney. No obstructing stones. No hydronephrosis. Stomach and bowel: Duodenal diverticulum measures 3.8 cm. Diverticulosis, without acute diverticulitis. No small bowel obstruction. No free intraperitoneal air. PELVIS: Appendix: No findings to suggest acute appendicitis. Bladder: Nonobstructing right-sided bladder stone measures approximately 1.5 cm. Reproductive: Unremarkable as visualized. ABDOMEN and PELVIS: Intraperitoneal space: Unremarkable. No free air. No significant fluid collection. Bones/joints: Degenerative changes of the spine. No acute fracture. No dislocation. Soft tissues: Unremarkable. Vasculature: Atherosclerotic changes of the aorta. No abdominal aortic aneurysm. Lymph nodes: Unremarkable. No enlarged lymph nodes. IMPRESSION: 1. Cholelithiasis. 2. Nonobstructing right-sided bladder stone measures approximately 1.5 cm. 3. Duodenal diverticulum measures 3.8 cm. 4. Diverticulosis, without acute diverticulitis. No small bowel obstruction. No free intraperitoneal air. Electronically signed by: Ventura Kuhn MD 07/11/24 03:13 AM Code Status & VTE Plan VTE Prophylaxis Plan VTE Prophylaxis will be ordered: Yes
[2024-07-11] MEDS: LEVALBUTEROL 1.25 MG/3 ML NEB NEB SCH (08:10)
[2024-07-11] MEDS: KETOROLAC TROMETHAMINE 15 MG/ML VIAL IV ONE ×2 (08:14→18:06)
[2024-07-11] MEDS: ONDANSETRON INJ 2 MG/ML 2 ML VIAL IV PRN (08:24)
[2024-07-11] MEDS ORDERED: methylPREDNISolone 125 MG/2 ML VIAL IV SCH (09:00)
[2024-07-11] MEDS: allopurinoL 100 MG TAB PO SCH (09:08)
[2024-07-11] MEDS: ATORVASTATIN 20 MG TAB PO SCH (09:08)
[2024-07-11] MEDS: DOXEPIN HCL 75 MG CAPSULE PO SCH (09:08)
[2024-07-11] MEDS: CHOLECALCIFEROL 25 MCG (1000 UNITS) TAB PO SCH (09:08)
[2024-07-11] MEDS: FINASTERIDE 5 MG TAB PO SCH (09:08)
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
[2024-07-11] MEDS: LANTUS PER UNIT CHARGE SQ SCH (09:29)
[2024-07-11] MEDS: INSULIN ASPART PER UNIT CHARGE SC SCH (09:29)
[2024-07-11] MEDS: methylPREDNISolone 40 MG in SYRINGE 0 ML IV SCH (10:03)
[2024-07-11 12:01] LABS: A calco-baum cmplx NotReported Not Detected (NotDetected); Bact fragilis Not Reported Not Detected (NotDetected); Blood Culture Id Panel See PCR Comment (NotDetected); C auris Not Reported Not Detected (NotDetected); CTX-M Resistant Gene Not Detected (NotDetected); Calbicans Not Reported Not Detected (NotDetected); Candida glabrata Not Reported Not Detected (NotDetected); Candida krusei Not Reported Not Detected (NotDetected); Cneoformans/gatti Not Reported Not Detected (NotDetected); Cparapsilosis Not Reported Not Detected (NotDetected); E cloacae compx Not Reported Not Detected (NotDetected); Efaecalis Not Reported Not Detected (NotDetected); Efaecium Not Reported Not Detected (NotDetected); Enterobacterales DETECTED (NotDetected); Enterobacterales Not Reported DETECTED (NotDetected); Escherichia coli Not Reported Not Detected (NotDetected); H influenzae Not Reported Not Detected (NotDetected); IMP Resistant Gene Not Detected (NotDetected); K aerogenes Not Reported Not Detected (NotDetected); KPC Resistant Gene Not Detected (NotDetected); Koxytoca Not Reported DETECTED (NotDetected); Kpneumoniae grp Not Reported Not Detected (NotDetected); Lmonocyt Not Reported Not Detected (NotDetected); N meningitidis Not Reported Not Detected (NotDetected); NDM Resistant Gene Not Detected (NotDetected); OXA 48 Like Resistant Gene Not Detected (NotDetected); P aeruginosa Not Reported Not Detected (NotDetected); Proteus spp Not Reported Not Detected (NotDetected); Salmonella spp Not Reported Not Detected (NotDetected); Staph lugdunensis Not Reported Not Detected (NotDetected); Staph spp. Not Reported Not Detected (NotDetected); Staphaureus Not Reported Not Detected (NotDetected); Staphepi Not Reported Not Detected (NotDetected); Stenmaltophilia Not Reported Not Detected (NotDetected); Strep agal(GrpB) Not Reported Not Detected (NotDetected); Strep pneum Not Reported Not Detected (NotDetected); Strep pyog (GrpA) Not Reported Not Detected (NotDetected); Strep spp Not Reported Not Detected (NotDetected); VIM Resistant Gene Not Detected (NotDetected); mcr-1 Colistin Resistant Gene Not Detected (NotDetected)
[2024-07-11] MEDS: PIPERACILLIN/TAZOBACTAM 4.5 GM/100 ML BAG IV SCH (13:13)
--- NOTE | 2024-07-11 13:32 | Communication Note ---
Date of Service: July 11, 2024 Patient seen and examined Reports feeling better Chills and rigors have resolved Nausea and vomiting have resolved BP has improved Reviewed labs. UA suggestive of UTI Sepsis with GNR bacteremia likely due to complicated UTI Patient straight catheterizes at home Blood culture growing GNR. PCR show Klebsiella oxytoca Antibiotics changed from vanc + zosyn to cefepime Will follow up speciation and sensitivities of blood culture Urine culture still in lab Continue IVF Advance diet Updated daughter at bedside and patient Other plans as detailed in H/P this AM
--- NOTE | 2024-07-11 15:59 | Electrocardiogram Report ---
Test Reason : Blood Pressure : */* mmHG Vent. Rate : 121 BPM Atrial Rate : 121 BPM P-R Int : 162 ms QRS Dur : 120 ms QT Int : 316 ms P-R-T Axes : 31 67 47 degrees QTcB Int : 448 ms Sinus tachycardia Right bundle branch block Abnormal ECG When compared with ECG of 20-Apr-2024 17:29, No significant change was found Confirmed by Ibrahima Dunham ([id number]) on 07/11/2024 3:59:29 PM Referred By: REFERRED SELF Confirmed By: Ibrahima Dunham
[2024-07-11] MEDS: PROCHLORPERAZINE 5 MG/ML 2 ML VIAL ONE (16:48)
[2024-07-11] MEDS: PROCHLORPERAZINE 5 MG in SYRINGE 4 ML IV ONE (16:48)
[2024-07-11 17:19] LABS: Hemoglobin 12.3 g/dl (14.0-18.0); Mean Corpuscular Hemoglobin 28.5 pg (25.0-34.0); Mean Corpuscular Hgb Conc 32.4 g/dL (32.0-36.0); Mean Corpuscular Volume 88.2 fL (80.0-100.0); Mean Platelet Volume 10.1 fL (9.4-12.4); Platelet Count 153 K/uL (130-400); RDW Coefficient of Variation 14.5 % (11.5-14.5); Red Blood Count 4.31 M/uL (4.70-6.10); White Blood Count 12.52 K/ul (4.8-10.8)
[2024-07-11 17:32] LABS: Potassium 4.7 mmol/L (3.5-5.1)
[2024-07-11 17:38] LABS: BUN Creatinine Ratio 14.6 (10-20); Creatinine Clr Calc Pharmacy 47.6 ml/min; Est GFR (African American) 47.5 ml/min
[2024-07-11] MEDS ORDERED: ACETAMINOPHEN 325 MG TAB PO ONE (18:31)
[2024-07-11] MEDS: ONDANSETRON INJ 2 MG/ML 2 ML VIAL IV STA (18:41)
[2024-07-11] MEDS: CEFEPIME 2,000 MG in SYRINGE 0 ML IV SCH (19:13)
[2024-07-11] MEDS: MEROPENEM 500 MG in SYRINGE 0 ML IV SCH (20:24)
[2024-07-12] MEDS: DOXYCYCLINE HYCLATE 100 MG in DEXTROSE 5% MINI-B 100 ML IV SCH (00:57)
[2024-07-12 06:40] LABS: Hematocrit (blood only) 34.2 % (42.0-52.0); Hemoglobin 11.2 g/dl (14.0-18.0); Mean Corpuscular Hemoglobin 28.8 pg (25.0-34.0); Mean Corpuscular Hgb Conc 32.7 g/dL (32.0-36.0); Mean Corpuscular Volume 87.9 fL (80.0-100.0); Mean Platelet Volume 10.1 fL (9.4-12.4); Platelet Count 128 K/uL (130-400); RDW Coefficient of Variation 14.6 % (11.5-14.5); RDW Standard Deviation 46.7 fL (36.4-46.3); Red Blood Count 3.89 M/uL (4.70-6.10); White Blood Count 14.32 K/ul (4.8-10.8)
[2024-07-12] MEDS: LORazepam 0.5 MG TAB SL STA (07:08)
[2024-07-12 07:28] LABS: Albumin Globulin Ratio 1.5 (0.9-2); Albumin Level 3.5 gm/dl (3.4-5.0); BUN Creatinine Ratio 17.8 (10-20); Bilirubin,Total 0.5 mg/dl (0.2-1.0); Calcium 7.7 mg/dl (8.6-10.3); Creatinine Clr Calc Pharmacy 48.1 ml/min; Est GFR (African American) 47.5 ml/min; Globulin 2.4 gm/dl (2.5-4.0); Magnesium 1.9 mg/dl (1.7-2.4); Potassium 4.2 mmol/L (3.5-5.1); Total Protein 5.9 gm/dl (6.0-8.3)
[2024-07-12 07:58] LABS: Basophils # (auto) 0.04 K/uL (0.00-0.20); Basophils % (auto) 0.3 %; Immature Granulocytes % (auto) 1.4 %; Lymphocytes # (auto) 0.66 K/uL (1.20-3.40); Lymphocytes % (auto) 4.6 %; Monocytes # (auto) 0.53 K/uL (0.11-0.59); Monocytes % (auto) 3.7 %; Neutrophils # (auto) 12.89 K/uL (1.40-6.50); RBC Morphology Unremarkable
[2024-07-12 08:32] LABS: Estimated Average Glucose 177 mg/dl; Hemoglobin A1C 7.8 % (4.5-5.6)
--- NOTE | 2024-07-12 09:36 | CT Scan Report ---
CT SCAN OF THE CHEST, ABDOMEN, AND PELVIS WITHOUT IV CONTRAST CLINICAL HISTORY: Fevers. COMPARISON STUDY: Abdominal CT dated 07/11/2024. Chest x-ray dated 07/11/2024. TECHNIQUE: Unenhanced CT scan of the chest, abdomen, and pelvis was performed from the thoracic inlet to the proximal femora. Images are reviewed in the axial, sagittal, and coronal planes. IV contrast was not administered as per the referring clinician. Note that the examination was performed in signi ficantly suboptimal fashion without oral and IV contrast. A dose lowering technique was utilized adh ering to the principles of ALARA. CT DOSE: 2589.01 mGy.cm FINDINGS: CHEST: Thyroid: Imaged portions of the thyroid gland are normal in size and attenuation. Thoracic aorta: The thoracic aorta is normal in caliber and demonstrates standard 3-vessel arch anato my. Heart: The heart is mildly enlarged and without pericardial effusion. The coronary arteries are dense ly calcified. The main pulmonary arteries are mildly dilated suggesting pulmonary artery hypertension . Lungs and pleural spaces: Evaluation of the lung parenchyma is compromised by motion artifact. The tr achea and central airways appear clear. There is mild intralobular septal thickening. There are small pleural effusions with dependent consolidation. Mediastinum: There are calcification containing mediastinal lymph nodes. No lymphadenopathy is seen. Sheryl: Clear. Axillae: There is no axillary lymphadenopathy. Bony thorax: The skeletal structures are osteopenic. Degenerative change is noted in the shoulders an d thoracic spine. There are chronic/healed left-sided rib fractures. No lytic or blastic lesions are identified. ABDOMEN AND PELVIS: Liver: The unenhanced liver is normal in size, contour, and attenuation. There is no intrahepatic everardo iary ductal dilatation. Gallbladder: There are calcified gallstones with no CT evidence of acute cholecystitis. Spleen: Normal in size and attenuation. Pancreas: The unenhanced pancreas is mildly atrophic. Scattered parenchymal calcifications suggest ch ronic pancreatitis. Adrenal glands: Unremarkable. Kidneys: There is asymmetric cortical atrophy of the right kidney as compared to the left. No hydrone phrosis is seen. Simple and complex/hyperdense bilateral renal cysts measure up to 8.5 cm. No renal c alculi are identified and there is no ureteral stone. Abdominal vasculature: The abdominal aorta is normal in course and caliber noting moderate atheroscle rotic calcification. Stomach and bowel: There is a small hiatal hernia. A rectal temperature probe is in place. No bowel o bstruction is seen. There is advanced colonic diverticulosis without CT evidence of acute diverticuli tis. There is evidence of prior appendectomy a small duodenal diverticulum is noted. There is mild in filtration seen between the pancreatic head and duodenum Peritoneum: There is no intraperitoneal free air or abdominal ascites. There is a fat-containing umbi lical hernia. Lymphadenopathy: None. Pelvic viscera: The bladder is largely decompressed and a White catheter and appears thick-walled. Sm all foci of intraluminal gas are nonspecific. A 1.6 cm bladder calculus is seen posteriorly on the ri ght. The prostate gland is mildly enlarged and heterogeneous. Skeletal structures: The skeletal structures are osteopenic. There is moderate lumbosacral spondylosi s. No lytic or blastic lesions are seen. IMPRESSION: 1. The heart is enlarged and there is nonspecific intralobular septal thickening. This can be seen wi th acute versus chronic congestive change and clinical correlation will be required. 2. Small pleural effusions with dependent consolidation. This likely represents atelectasis and clini odell correlation will be required. 3. There is mild nonspecific infiltration between the pancreatic head and duodenum. This may be relat ed to fluid status. Correlate with clinical and laboratory findings for evidence of a mild pancreatit is/duodenitis. 4. Cholelithiasis. 5. The bladder is largely decompressed around a White catheter and appears thick walled. Correlate wi th clinical findings and urinalysis. 6. There is a large bladder calculus. 7. Advanced colonic diverticulosis without CT evidence of acute diverticulitis. 8. Additional findings as above. ACT 112: Negative or not required by law. Electronically signed by: Nii Griffin M.D. 07/12/2024 9:34 AM
--- NOTE | 2024-07-12 09:48 | Hospitalist Progress Note ---
Date of Service July 12, 2024 Assessment & Plan (1) Sepsis: Plan Pt is an 78-year-old male with past medical history significant for type 2 diabetes, CKD stage III, hypercholesterolemia, right bundle branch block, BPH, chronic bilateral back pain, general anxiety disorder, history of tobacco abuse, history of gout, history of shingles, history of kidney stones, Hx of neurogenic bladder for which he self-caths 4 times a day admitted with severe sepsis in the setting of a UTI. The day prior to admission, he mowed his grass on a tractor and then felt very weak, tired, fatigued, had shaking chills, felt nauseated and vomited twice. Severe Sepsis Bacteremia, gram negative Complicated UTI Hx of neurogenic bladder requiring self-cath Blood pressure on lower end with leukocytosis and tachycardia Lactic acid 2.1 and repeat 2.7, has since downtrended UA suggestive of infection, urine Cx growing gram negative bacilli Blood Cultures growing gram neg bacilli in 2/2 bottles Possible infected back cyst- wound culture pending [facility] serology detecting Klebsiella and Enterobacterales CT scan shows bladder stone but no obstructing lesions-follows with urology. Consulted for further recs Pt was originally on IV Vanc and Zosyn--> switched to Meropenem and Doxycycline after continuous rigors overnight on 07/11 IV fluids Closely monitor- not requiring pressor support at this time, follow fever curve Pleural effusions Cardiomegaly with intralobular septal thickening Pulmonary HTN Densely Calcified coronary arteries Noted on CT chest Trop x1 wnl BNP pending Echo ordered and pending Consider further treatment and cardiology input pending echo Chronic Pancreatitis Noted on CT abd/pelvis Lipase pending Pt currently appears asymptomatic Continue to monitor Consider nonurgent GI followup Possible mild COPD exacerbation Quit smoking 2012 smoked half a pack for 40 years Bilateral wheezing on exam on admission has since resolved Treated with Nebs [id number] and as needed Short course of steroids Close monitor YAW on CKD stage III Baseline creatinine 1.3-1.4 Presented creatinine 1.7 Avoid nephrotoxic agents IV fluids Continue to monitor with daily labs Improving Type 2 diabetes Hold home medications Lantus and sliding scale Closely monitor blood sugars while on steroids BPH On dutasteride Straight caths 4 times daily Currently with linda in place Monitor for urinary retention As above, urology consulted for further recs with severe infection Hyperlipidemia On statin Gout On allopurinol Hypomagnesia Replete as needed Generalized anxiety disorder On doxepin DVT prophylaxis: Heparin subcu Diet: DMII Dispo: PT/OT once medically stable. Admission and Anticipated Discharge Date Admission Date: July 11, 2024 Subjective Pt was seen at about 9:30AM. and daughter Sheila at bedside. Pt confused, lifting up gown and exposing himself. Also states that he is currently at home. Per daughter, not his usual mental state. Otherwise AAOx2. However, otherwise resting comfortably. Review of Systems Review of Systems: All systems reviewed & are unremarkable except as noted in Subjective Physical Exam Physical Exam: General: Alert, confused at times Skin: healed surgical scar on left hand Psych: restless mood and affect Neuro: AAOx2, confused at times HEENT: NC/AT CV: RRR Resp: Breath sounds clear bilaterally, no increased effort of breathing. Abdomen: Nontender, distended. Extremities: Trace edema in lower extremities bilaterally. Results & Data Results & Data Vital Signs (Past 12 Hours) Vital Signs Temp Pulse Pulse Pulse Resp BP Pulse Ox 07/12/24 08:21 38.6 C H 89 20 117/69 95 07/12/24 07:17 07/12/24 07:16 94 H 18 92 07/12/24 06:17 36.6 C 07/12/24 02:10 36.1 C L 55 L 18 100/62 95 07/12/24 01:35 60 07/12/24 01:23 07/12/24 00:58 36.1 C L 61 16 101/62 95 07/11/24 23:07 36.6 C 68 16 99/60 L 95 O2 Del Method O2 Flow Rate 07/12/24 08:21 Nasal Cannula 2 07/12/24 07:17 Nasal Cannula 2 07/12/24 07:16 Nasal Cannula 2 07/12/24 06:17 07/12/24 02:10 Room Air 07/12/24 01:35 07/12/24 01:23 Room Air 07/12/24 00:58 Room Air 07/11/24 23:07 Room Air Diagnostic Findings Chest X-Ray 07/11/24 00:09 XR chest 1V portable CLINICAL HISTORY: Sepsis. COMPARISON STUDY: Chest radiograph February 04, 2021. FINDINGS: Lung volumes are normal. Lungs are clear. There is no pneumothorax or pleural effusion. Cardiomediastinal silhouette is stable. There is no evidence for pulmonary edema. IMPRESSION: No acute cardiopulmonary findings. No significant change in appearance of the chest. ACT 112: Negative or not required by law. Electronically signed by: Aly Narayan M.D. 07/11/2024 6:58 AM Abdomen/Pelvis CT 07/11/24 01:58 Exam(s): CT ABDOMEN + PELVIS Without Contrast EXAM: CT Abdomen and Pelvis Without Intravenous Contrast CLINICAL HISTORY: Reason for exam: uti, yaw. TECHNIQUE: Axial computed tomography images of the abdomen and pelvis without intravenous contrast. CTDI is 28.14 mGy and DLP is 1535.01 mGy-cm. Automated exposure control was utilized for the study. A dose lowering technique was utilized adhering to the principles of ALARA. COMPARISON: No relevant prior studies available. FINDINGS: Lung bases: Unremarkable. No mass. No consolidation. ABDOMEN: Liver: Unremarkable. Gallbladder and bile ducts: Cholelithiasis. No ductal dilation. Pancreas: Unremarkable. No ductal dilation. Spleen: Unremarkable. No splenomegaly. Adrenals: Unremarkable. No mass. Kidneys and ureters: Dense RIGHT renal lesion measures 7 mm, which may represent a hemorrhagic or proteinaceous cyst. Bilateral renal cysts, measuring up to 8.2 cm in the LEFT lower pole. Atrophy of the RIGHT kidney. No obstructing stones. No hydronephrosis. Stomach and bowel: Duodenal diverticulum measures 3.8 cm. Diverticulosis, without acute diverticulitis. No small bowel obstruction. No free intraperitoneal air. PELVIS: Appendix: No findings to suggest acute appendicitis. Bladder: Nonobstructing right-sided bladder stone measures approximately 1.5 cm. Reproductive: Unremarkable as visualized. ABDOMEN and PELVIS: Intraperitoneal space: Unremarkable. No free air. No significant fluid collection. Bones/joints: Degenerative changes of the spine. No acute fracture. No dislocation. Soft tissues: Unremarkable. Vasculature: Atherosclerotic changes of the aorta. No abdominal aortic aneurysm. Lymph nodes: Unremarkable. No enlarged lymph nodes. IMPRESSION: 1. Cholelithiasis. 2. Nonobstructing right-sided bladder stone measures approximately 1.5 cm. 3. Duodenal diverticulum measures 3.8 cm. 4. Diverticulosis, without acute diverticulitis. No small bowel obstruction. No free intraperitoneal air. Electronically signed by: Ventura Kuhn MD 07/11/24 03:13 AM Abdomen/Pelvis CT 07/12/24 07:00 CT SCAN OF THE CHEST, ABDOMEN, AND PELVIS WITHOUT IV CONTRAST CLINICAL HISTORY: Fevers. COMPARISON STUDY: Abdominal CT dated 07/11/2024. Chest x-ray dated 07/11/2024. TECHNIQUE: Unenhanced CT scan of the chest, abdomen, and pelvis was performed from the thoracic inlet to the proximal femora. Images are reviewed in the axial, sagittal, and coronal planes. IV contrast was not administered as per the referring clinician. Note that the examination was performed in significantly suboptimal fashion without oral and IV contrast. A dose lowering technique was utilized adhering to the principles of ALARA. CT DOSE: 2589.01 mGy.cm FINDINGS: CHEST: Thyroid: Imaged portions of the thyroid gland are normal in size and attenuation. Thoracic aorta: The thoracic aorta is normal in caliber and demonstrates standard 3-vessel arch anatomy. Heart: The heart is mildly enlarged and without pericardial effusion. The coronary arteries are densely calcified. The main pulmonary arteries are mildly dilated suggesting pulmonary artery hypertension. Lungs and pleural spaces: Evaluation of the lung parenchyma is compromised by motion artifact. The trachea and central airways appear clear. There is mild intralobular septal thickening. There are small pleural effusions with dependent consolidation. Mediastinum: There are calcification containing mediastinal lymph nodes. No lymphadenopathy is seen. Sheryl: Clear. Axillae: There is no axillary lymphadenopathy. Bony thorax: The skeletal structures are osteopenic. Degenerative change is noted in the shoulders and thoracic spine. There are chronic/healed left-sided rib fractures. No lytic or blastic lesions are identified. ABDOMEN AND PELVIS: Liver: The unenhanced liver is normal in size, contour, and attenuation. There is no intrahepatic biliary ductal dilatation. Gallbladder: There are calcified gallstones with no CT evidence of acute cholecystitis. Spleen: Normal in size and attenuation. Pancreas: The unenhanced pancreas is mildly atrophic. Scattered parenchymal calcifications suggest chronic pancreatitis. Adrenal glands: Unremarkable. Kidneys: There is asymmetric cortical atrophy of the right kidney as compared to the left. No hydronephrosis is seen. Simple and complex/hyperdense bilateral renal cysts measure up to 8.5 cm. No renal calculi are identified and there is no ureteral stone. Abdominal vasculature: The abdominal aorta is normal in course and caliber noting moderate atherosclerotic calcification. Stomach and bowel: There is a small hiatal hernia. A rectal temperature probe is in place. No bowel obstruction is seen. There is advanced colonic diverticulosis without CT evidence of acute diverticulitis. There is evidence of prior appendectomy a small duodenal diverticulum is noted. There is mild infiltration seen between the pancreatic head and duodenum Peritoneum: There is no intraperitoneal free air or abdominal ascites. There is a fat-containing umbilical hernia. Lymphadenopathy: None. Pelvic viscera: The bladder is largely decompressed and a Linda catheter and appears thick-walled. Small foci of intraluminal gas are nonspecific. A 1.6 cm bladder calculus is seen posteriorly on the right. The prostate gland is mildly enlarged and heterogeneous. Skeletal structures: The skeletal structures are osteopenic. There is moderate lumbosacral spondylosis. No lytic or blastic lesions are seen. IMPRESSION: 1. The heart is enlarged and there is nonspecific intralobular septal thickening. This can be seen with acute versus chronic congestive change and clinical correlation will be required. 2. Small pleural effusions with dependent consolidation. This likely represents atelectasis and clinical correlation will be required. 3. There is mild nonspecific infiltration between the pancreatic head and duodenum. This may be related to fluid status. Correlate with clinical and laboratory findings for evidence of a mild pancreatitis/duodenitis. 4. Cholelithiasis. 5. The bladder is largely decompressed around a Linda catheter and appears thick walled. Correlate with clinical findings and urinalysis. 6. There is a large bladder calculus. 7. Advanced colonic diverticulosis without CT evidence of acute diverticulitis. 8. Additional findings as above. ACT 112: Negative or not required by law. Electronically signed by: Nii Griffin M.D. 07/12/2024 9:[address] 07/12/24 07:00 CT SCAN OF THE CHEST, ABDOMEN, AND PELVIS WITHOUT IV CONTRAST CLINICAL HISTORY: Fevers. COMPARISON STUDY: Abdominal CT dated 07/11/2024. Chest x-ray dated 07/11/2024. TECHNIQUE: Unenhanced CT scan of the chest, abdomen, and pelvis was performed from the thoracic inlet to the proximal femora. Images are reviewed in the axial, sagittal, and coronal planes. IV contrast was not administered as per the referring clinician. Note that the examination was performed in significantly suboptimal fashion without oral and IV contrast. A dose lowering technique was utilized adhering to the principles of ALARA. CT DOSE: 2589.01 mGy.cm FINDINGS: CHEST: Thyroid: Imaged portions of the thyroid gland are normal in size and attenuation. Thoracic aorta: The thoracic aorta is normal in caliber and demonstrates standard 3-vessel arch anatomy. Heart: The heart is mildly enlarged and without pericardial effusion. The coronary arteries are densely calcified. The main pulmonary arteries are mildly dilated suggesting pulmonary artery hypertension. Lungs and pleural spaces: Evaluation of the lung parenchyma is compromised by motion artifact. The trachea and central airways appear clear. There is mild intralobular septal thickening. There are small pleural effusions with dependent consolidation. Mediastinum: There are calcification containing mediastinal lymph nodes. No lymphadenopathy is seen. Sheryl: Clear. Axillae: There is no axillary lymphadenopathy. Bony thorax: The skeletal structures are osteopenic. Degenerative change is noted in the shoulders and thoracic spine. There are chronic/healed left-sided rib fractures. No lytic or blastic lesions are identified. ABDOMEN AND PELVIS: Liver: The unenhanced liver is normal in size, contour, and attenuation. There is no intrahepatic biliary ductal dilatation. Gallbladder: There are calcified gallstones with no CT evidence of acute cholecystitis. Spleen: Normal in size and attenuation. Pancreas: The unenhanced pancreas is mildly atrophic. Scattered parenchymal calcifications suggest chronic pancreatitis. Adrenal glands: Unremarkable. Kidneys: There is asymmetric cortical atrophy of the right kidney as compared to the left. No hydronephrosis is seen. Simple and complex/hyperdense bilateral re nal cysts measure up to 8.5 cm. No renal calculi are identified and there is no ureteral stone. Abdominal vasculature: The abdominal aorta is normal in course and caliber noting moderate atherosclerotic calcification. Stomach and bowel: There is a small hiatal hernia. A rectal temperature probe is in place. No bowel obstruction is seen. There is advanced colonic diverticulosis without CT evidence of acute diverticulitis. There is evidence of prior appendectomy a small duodenal diverticulum is noted. There is mild infiltration seen between the pancreatic head and duodenum Peritoneum: There is no intraperitoneal free air or abdominal ascites. There is a fat-containing umbilical hernia. Lymphadenopathy: None. Pelvic viscera: The bladder is largely decompressed and a Linda catheter and appears thick-walled. Small foci of intraluminal gas are nonspecific. A 1.6 cm bladder calculus is seen posteriorly on the right. The prostate gland is mildly enlarged and heterogeneous. Skeletal structures: The skeletal structures are osteopenic. There is moderate lumbosacral spondylosis. No lytic or blastic lesions are seen.
[2024-07-12] MEDS ORDERED: PHARMACY GLYCEMIC MGMT CONSULT PRN (10:13)
--- NOTE | 2024-07-12 12:04 | Pharmacy Report ---
Pharmacy Glycemic Short Note 2 - Date of Service July 12, 2024 - Glycemic Short BSG Results (Last 24 hours): 07/11/24 07/11/24 07/11/24 12:23 16:47 18:08 Glucose 279 H POC Glucose 267 H 292 H 07/11/24 07/12/24 07/12/24 20:28 05:36 06:43 Glucose 153 H POC Glucose 203 H 148 H 07/12/24 07/12/24 07:09 11:44 Glucose POC Glucose 149 H 143 H OUTPATIENT ANTIDIABETIC REGIMEN: * glipizide 5 mg PO daily HbA1c: 7.8% (07/12/24) ASSESSMENT: * FS is an 78 year old male w/ sepsis secondary to complicated UTI * Patient has history of neurogenic bladder requiring self-catheterization, BPH, CKD, and T2DM * Blood sugars elevated yesterday, likely related to IV methylprednisolone * No ongoing steroids PLAN FOR INPATIENT GLYCEMIC CONTROL: * Hold outpatient oral diabetes medications * Basal insulin * Lantus 7 units SC daily (given prior to consult) * Reassess in AM * Bolus insulin * NovoLog per scale ACHS or Q6hrs while NPO * Goal Range: Low 110 mg/dL - High 140 mg/dL * Correction Factor: 30 mg/dL/unit * Nutritional / Prandial insulin per carb ratio of 1 unit per 10 grams CHO consumed
--- NOTE | 2024-07-12 13:35 | Urology Consultation ---
<Statement entered by Garrison Espinoza MD - 07/13/24 08:40> I have discussed Mr. Oneill's case with ELVIA Lam and agree with the above documentation. No evidence of focal obstruction. He does have a bladder stone which should be removed at some point, but would not do this in the setting of acute infection. Would maintain catheter in place for drainage of urinary tract. Agree with broad-spectrum antibiotics and narrowing coverage as culture data becomes available. -Garrison Espinoza MD. Date of Consultation July 12, 2024 Assessment & Plan (1) Sepsis: (2) UTI (urinary tract infection): (3) Neurogenic bladder, flaccid: (4) Bladder stone: Plan 78 yo/M with a hx of neurogenic bladder admitted with sepsis in the setting of UTI/bacteremia. - Febrile at 39.1C this morning. Afebrile with stable vitals at present. - Labs today reviewed - WBC 14.32, Creatinine 1.57. - Urine and blood culture growing gram negative bacilli. - White intact and draining clear yellow urine. - CT abd pelvis reviewed - Asymmetric cortical atrophy of the right kidney as compared to the left. No hydronephrosis. No renal or ureteral calculi. Large bladder stone. - No acute intervention warranted. - Maintain White catheter for bladder decompression while treating infection. - Continue antibiotic therapy and tailor as culture data becomes available. - Continue supportive care. - We can discuss treatment of the bladder stone as an outpatient after his acute issues/infection have resolved. - Urology will follow along. History of Present Illness Attending Physician: Arielle Drew MD History of Present Illness 78 year old male with a past medical history significant for type 2 diabetes, CKD stage III, hypercholesterolemia, right bundle branch block, BPH, chronic bilateral back pain, general anxiety disorder, history of tobacco abuse, history of gout, history of shingles, history of kidney stones, BPH, Hx of neurogenic bladder for which he self catheterizes 4x/day who is admitted to medicine service with sepsis in the setting of a UTI/bacteremia. Urology has been consulted for sepsis, neurogenic bladder, bladder stone. CT abdomen pelvis 07/12/24- 1. The heart is enlarged and there is nonspecific intralobular septal thickening. This can be seen with acute versus chronic congestive change and clinical correlation will be required. 2. Small pleural effusions with dependent consolidation. This likely represents atelectasis and clinical correlation will be required. 3. There is mild nonspecific infiltration between the pancreatic head and duodenum. This may be related to fluid status. Correlate with clinical and laboratory findings for evidence of a mild pancreatitis/duodenitis. 4. Cholelithiasis. 5. The bladder is largely decompressed around a White catheter and appears thick walled. Correlate with clinical findings and urinalysis. 6. There is a large bladder calculus. 7. Advanced colonic diverticulosis without CT evidence of acute diverticulitis. CT abdomen pelvis 07/11/24- 1. Cholelithiasis. 2. Nonobstructing right-sided bladder stone measures approximately 1.5 cm. 3. Duodenal diverticulum measures 3.8 cm. 4. Diverticulosis, without acute diverticulitis. No small bowel obstruction. No free intraperitoneal air. Patient was seen at bedside today. Asleep on arrival, awakened to name. Appears to be resting comfortably and in no acute distress. Daughter and nurse at bedside. White draining clear yellow urine. Patient is known to the urology service, has previously followed with Dr. Espinoza. History of neurogenic bladder for which he does CIC 3-4 times a day. Allergies Allergy/AdvReac Type Severity Reaction Status Date / Time No Known Allergies Allergy Verified 10/07/23 09:14 Home Medications Medication Instructions Recorded Confirmed Type allopurinol 100 mg tablet 100 mg PO BID 07/11/24 07/11/24 History atorvastatin 20 mg tablet 20 mg PO DAILY 07/11/24 07/11/24 History cholecalciferol (vitamin D3) 25 25 mcg PO DAILY 07/11/24 07/11/24 History mcg (1,000 unit) tablet doxepin 75 mg capsule 75 mg PO DAILY 07/11/24 07/11/24 History dutasteride 0.5 mg capsule 0.5 mg PO DAILY 07/11/24 07/11/24 History glipizide 5 mg tablet 5 mg PO DAILY 07/11/24 07/11/24 History methenamine hippurate 1 gram tablet 1 g PO BID 07/11/24 07/11/24 History Patient History Medical History History of back problems Kidney stone Surgical History History of laparoscopic appendectomy (02/04/21) History of ureter stent (10/19/14) Social History Smoking Status: Former smoker Second Hand Exposure: No; Do You Dip or Chew Tobacco: No; Tobacco Cessation Education Requested by Patient: No Hx Alcohol Use: Yes Hx Substance Use: No Preferred Language: Italian Communication Ability: Effective Action Installer Required: No Beliefs That Will Affect Care: None Current Living Situation: Spouse Feels Safe at Home: Yes Assistive Devices: None Review of Systems Review of Systems: All systems reviewed & are unremarkable except as noted in HPI & below Physical Exam Constitutional: no acute distress Respiratory: no respiratory distress and no labored breathing Musculoskeletal: Head/Neck/Chest: normocephalic Skin: No visible rashes or lesions to exposed skin areas Neurologic: Asleep on arrival, awakened to name Psychiatric: Orientation: alert and cooperative Genitourinary: White intact Results & Data Vital Signs (Past 12 Hours) Vital Signs Temp Pulse Pulse Pulse Resp BP Pulse Ox 07/12/24 13:14 36.9 C 07/12/24 11:37 63 07/12/24 11:14 38.7 C H 07/12/24 10:55 38.8 C H 89 18 104/58 L 97 07/12/24 10:49 87 18 94 07/12/24 09:56 39.1 C H 07/12/24 08:21 38.6 C H 89 20 117/69 95 07/12/24 07:17 07/12/24 07:16 94 H 18 92 07/12/24 06:17 36.6 C 07/12/24 02:10 36.1 C L 55 L 18 100/62 95 07/12/24 01:35 60 O2 Del Method O2 Flow Rate 07/12/24 13:14 07/12/24 11:37 07/12/24 11:14 07/12/24 10:55 Room Air 07/12/24 10:49 Room Air 07/12/24 09:56 07/12/24 08:21 Nasal Cannula 2 07/12/24 07:17 Nasal Cannula 2 07/12/24 07:16 Nasal Cannula 2 07/12/24 06:17 07/12/24 02:10 Room Air 07/12/24 01:35 PG Care Time/CCT Total # of Minutes Spent Total Time Spent with Patient: Total time spent is greater than 50% in coordination of care (as documented) at patient's floor/unit and/or counseling patient: Coding Level of Care Code 04880 INT INP/OBS CARE 2/55MIN Diagnoses Sepsis A41.9 UTI (urinary tract infection) N39.0; R31.9 Hematuria presence: with hematuria Urinary tract infection type: site unspecified Neurogenic bladder, flaccid N31.2 Bladder stone N21.0 (2) UTI (urinary tract infection) Hematuria presence: with hematuria Urinary tract infection type: site unspecified Qualified Code(s): N39.0 - Urinary tract infection, site not specified; R31.9 - Hematuria, unspecified
[2024-07-12] MEDS: PROMETHAZINE 6.25 MG/50.25 ML BAG IV STA (22:46)
[2024-07-13 05:47] LABS: Basophils # (auto) 0.02 K/uL (0.00-0.20); Basophils % (auto) 0.2 %; Eosinophils # (auto) 0.05 K/uL (0.00-0.50); Eosinophils % (auto) 0.5 %; Hematocrit (blood only) 30.8 % (42.0-52.0); Hemoglobin 10.5 g/dl (14.0-18.0); Immature Granulocytes # (auto) 0.19 K/uL (0.01-0.20); Immature Granulocytes % (auto) 1.9 %; Lymphocytes # (auto) 0.77 K/uL (1.20-3.40); Lymphocytes % (auto) 7.7 %; Mean Corpuscular Hemoglobin 29.2 pg (25.0-34.0); Mean Corpuscular Hgb Conc 34.1 g/dL (32.0-36.0); Mean Corpuscular Volume 85.8 fL (80.0-100.0); Mean Platelet Volume 9.8 fL (9.4-12.4); Neutrophils # (auto) 8.43 K/uL (1.40-6.50); Neutrophils % (auto) 84.7 %; Platelet Count 117 K/uL (130-400); RDW Coefficient of Variation 14.3 % (11.5-14.5); RDW Standard Deviation 45.4 fL (36.4-46.3); Red Blood Count 3.59 M/uL (4.70-6.10); White Blood Count 9.96 K/ul (4.8-10.8)
[2024-07-13 06:06] LABS: Albumin Globulin Ratio 1.2 (0.9-2); Albumin Level 3.1 gm/dl (3.4-5.0); BUN Creatinine Ratio 21.2 (10-20); Bilirubin,Total 0.5 mg/dl (0.2-1.0); Calcium 7.5 mg/dl (8.6-10.3); Creatinine Clr Calc Pharmacy 50.2 ml/min; Est GFR (African American) 49.8 ml/min; Globulin 2.5 gm/dl (2.5-4.0); Magnesium 1.8 mg/dl (1.7-2.4); Phosphorus 2.1 mg/dl (2.5-4.9); Total Protein 5.6 gm/dl (6.0-8.3)
[2024-07-13] MEDS ORDERED: LEVALBUTEROL 1.25 MG/3 ML NEB NEB PRN (08:02)
[2024-07-13] MEDS ORDERED: SODIUM PHOSPHATE 3 MMOL/1 ML INFUSION IV STA (08:07)
[2024-07-13] MEDS: CALCIUM GLUCONATE 1,000 MG/60 ML BAG IV SCH (08:27)
--- NOTE | 2024-07-13 08:32 | Urology Progress Note ---
Date of Service July 13, 2024 Assessment & Plan (1) Sepsis: (2) UTI (urinary tract infection): (3) Neurogenic bladder, flaccid: (4) Bladder stone: Plan 78 yo/M with a hx of neurogenic bladder admitted with sepsis in the setting of UTI/bacteremia. - Afebrile with stable vitals at present. - Labs today reviewed - WBC 14.32- 9.96 today, Creatinine 1.57- 1.51 today. Continue to trend. - Urine and blood culture growing Klebsiella. - White intact and draining clear yellow urine. - CT abd pelvis reviewed - Asymmetric cortical atrophy of the right kidney as compared to the left. No hydronephrosis. No renal or ureteral calculi. Large bladder stone. - No acute intervention warranted. - Maintain White catheter for bladder decompression while treating infection. - Continue antibiotic therapy and tailor as culture data becomes available. ID consulted. - Continue supportive care. - Will arrange outpatient follow-up with our service. We can discuss treatment of the bladder stone as an outpatient after his acute issues/infection have resolved. - Urology will sign-off. Please call with any further questions or concerns. Admission and Anticipated Discharge Date Admission Date: July 11, 2024 Subjective Pt seen at bedside today Awake, resting in bed on arrival No acute distress at bedside No c/o of pain White draining clear yellow urine Review of Systems Constitutional: as per Subjective / HPI Genitourinary: + as per Subjective / HPI Physical Exam Constitutional: no acute distress Respiratory: no respiratory distress and no labored breathing Neurologic: awake Psychiatric: Orientation: alert and cooperative Genitourinary: White intact Results & Data Vital Signs (Past 12 Hours) Vital Signs Temp Pulse Pulse Resp BP BP Pulse Ox 07/13/24 07:26 89 07/13/24 07:18 36.5 C 99 H 18 125/78 95 07/13/24 07:06 92 H 18 93 07/13/24 06:00 07/13/24 02:59 36.4 C L 107 H 22 151/78 H 98 07/13/24 00:44 87 07/12/24 23:30 36.6 C 07/12/24 23:06 37.2 C 97 H 20 119/60 94 Pulse Ox O2 Del Method O2 Del Method O2 Flow Rate O2 Flow Rate 07/13/24 07:26 07/13/24 07:18 Room Air 07/13/24 07:06 Room Air 07/13/24 06:00 98 Nasal Cannula 2 07/13/24 02:59 Nasal Cannula 2 07/13/24 00:44 07/12/24 23:30 07/12/24 23:06 Room Air PG Care Time/CCT Total # of Minutes Spent Total Time Spent with Patient: Total time spent is greater than 50% in coordination of care (as documented) at patient's floor/unit and/or counseling patient: Coding Level of Care Code 82272 SUB INP/OBS CARE 235MIN Diagnoses Sepsis A41.9 UTI (urinary tract infection) N39.0; R31.9 Hematuria presence: with hematuria Urinary tract infection type: site unspecified Neurogenic bladder, flaccid N31.2 Bladder stone N21.0 (2) UTI (urinary tract infection) Hematuria presence: with hematuria Urinary tract infection type: site unspe cified Qualified Code(s): N39.0 - Urinary tract infection, site not specified; R31.9 - Hematuria, unspecified
[2024-07-13] MEDS: LANTUS PER UNIT CHARGE SQ SCH (08:51)
[2024-07-13] MEDS: SODIUM PHOSPHATE 15 MMOL in SODIUM CHLORIDE 0.9% 250 ML IV ONE (09:01)
[2024-07-13] MEDS: POT PHOSPHATE MONOBASIC W/ SOD TAB PO SCH (10:13)
--- NOTE | 2024-07-13 11:38 | Hospitalist Progress Note ---
Date of Service July 13, 2024 Assessment & Plan (1) Sepsis: Plan Pt is an 78-year-old male with past medical history significant for type 2 diabetes, CKD stage III, hypercholesterolemia, right bundle branch block, BPH, chronic bilateral back pain, general anxiety disorder, history of tobacco abuse, history of gout, history of shingles, history of kidney stones, Hx of neurogenic bladder for which he self-caths 4 times a day admitted with severe sepsis in the setting of a UTI. The day prior to admission, he mowed his grass on a tractor and then felt very weak, tired, fatigued, had shaking chills, felt nauseated and vomited twice. Severe Sepsis Bacteremia, gram negative Complicated UTI Hx of neurogenic bladder requiring self-cath Blood pressure on lower end with leukocytosis and tachycardia Lactic acid 2.1 and repeat 2.7, has since downtrended UA suggestive of infection, urine Cx growing Klebsiella oxytoca Blood Cultures growing Klebsiella oxytoca in 2/2 bottles Possible infected back cyst- wound culture NGTD Bio[employer] serology detecting Klebsiella and Enterobacterales CT scan shows bladder stone but no obstructing lesions-follows with urology. Consulted for further recs Pt was originally on IV Vanc and Zosyn--> switched to Meropenem and Doxycycline after continuous rigors overnight on 07/11 IV fluids Given severity of symptoms and clinical worsening, ID was consulted for further recs. Closely monitor- not requiring pressor support at this time, follow fever curve improving Pleural effusions Cardiomegaly with intralobular septal thickening Pulmonary HTN Densely Calcified coronary arteries Noted on CT chest Trop x1 wnl BNP elevated Echo grossly normal though limited visualization at times Chronic Pancreatitis Noted on CT abd/pelvis Lipase normal Pt currently appears asymptomatic Continue to monitor Consider nonurgent GI followup Possible mild COPD exacerbation Quit smoking 2012 smoked half a pack for 40 years Bilateral wheezing on exam on admission has since resolved Treated with Nebs [id number] and as needed Short course of steroids, have since been discontinued Close monitor YAW on CKD stage III Baseline creatinine 1.3-1.4 Presented creatinine 1.7 Avoid nephrotoxic agents IV fluids Continue to monitor with daily labs Improving Type 2 diabetes Hold home medications Lantus and sliding scale Closely monitor blood sugars while on steroids Glycemic consult BPH On dutasteride Straight caths 4 times daily Currently with linda in place Monitor for urinary retention As above, urology consulted for further recs with severe infection Hyperlipidemia On statin Gout On allopurinol Hypomagnesia Replete as needed Generalized anxiety disorder On doxepin DVT prophylaxis: Heparin subcu Diet: DMII Dispo: PT/OT for further dispo recs Admission and Anticipated Discharge Date Admission Date: July 11, 2024 Subjective pt was seen in AM with at bedside. Both were resting comfortably. Pt AAOx3 this AM. No further fevers or rigors at this time. Review of Systems Review of Systems: All systems reviewed & are unremarkable except as noted in Subjective Physical Exam Physical Exam: General: Alert, oriented Skin: healed surgical scar on left hand Psych: appropriate mood and affect Neuro: AAOx3 HEENT: NC/AT CV: RRR Resp: Breath sounds clear bilaterally, no increased effort of breathing. Abdomen: Nontender, distended. Extremities: Trace edema in lower extremities bilaterally. Results & Data Results & Data Vital Signs (Past 12 Hours) Vital Signs Temp Pulse Pulse Resp BP BP Pulse Ox 07/13/24 11:19 36.7 C 93 H 18 132/69 94 07/13/24 07:26 89 07/13/24 07:18 36.5 C 99 H 18 125/78 95 07/13/24 07:06 92 H 18 93 07/13/24 06:00 07/13/24 02:59 36.4 C L 107 H 22 151/78 H 98 07/13/24 00:44 87 Pulse Ox O2 Del Method O2 Del Method O2 Flow Rate O2 Flow Rate 07/13/24 11:19 Room Air 07/13/24 07:26 07/13/24 07:18 Room Air 07/13/24 07:06 Room Air 07/13/24 06:00 98 Nasal Cannula 2 07/13/24 02:59 Nasal Cannula 2 07/13/24 00:44
[2024-07-13 13:32] LABS: Babesia microti DNA Not Detected (Not Detected)
[2024-07-13] MEDS: LEVALBUTEROL 1.25 MG/3 ML NEB NEB PRN (16:57)
[2024-07-14 06:11] LABS: Basophils # (auto) 0.03 K/uL (0.00-0.20); Basophils % (auto) 0.3 %; Eosinophils # (auto) 0.28 K/uL (0.00-0.50); Hematocrit (blood only) 31.5 % (42.0-52.0); Hemoglobin 10.8 g/dl (14.0-18.0); Immature Granulocytes # (auto) 0.06 K/uL (0.01-0.20); Immature Granulocytes % (auto) 0.7 %; Lymphocytes # (auto) 0.91 K/uL (1.20-3.40); Lymphocytes % (auto) 9.9 %; Mean Corpuscular Hemoglobin 29.3 pg (25.0-34.0); Mean Corpuscular Hgb Conc 34.3 g/dL (32.0-36.0); Mean Corpuscular Volume 85.6 fL (80.0-100.0); Mean Platelet Volume 10.3 fL (9.4-12.4); Monocytes # (auto) 0.62 K/uL (0.11-0.59); Monocytes % (auto) 6.7 %; Neutrophils # (auto) 7.32 K/uL (1.40-6.50); Neutrophils % (auto) 79.4 %; Platelet Count 133 K/uL (130-400); RDW Coefficient of Variation 14.4 % (11.5-14.5); RDW Standard Deviation 44.9 fL (36.4-46.3); Red Blood Count 3.68 M/uL (4.70-6.10); White Blood Count 9.22 K/ul (4.8-10.8)
[2024-07-14 06:30] LABS: Albumin Globulin Ratio 1.3 (0.9-2); Albumin Level 3.2 gm/dl (3.4-5.0); BUN Creatinine Ratio 18.4 (10-20); Bilirubin,Total 0.6 mg/dl (0.2-1.0); Calcium 7.7 mg/dl (8.6-10.3); Creatinine Clr Calc Pharmacy 60.6 ml/min; Est GFR (African American) 62.6 ml/min; Globulin 2.4 gm/dl (2.5-4.0); Magnesium 1.8 mg/dl (1.7-2.4); Phosphorus 2.7 mg/dl (2.5-4.9); Potassium 3.8 mmol/L (3.5-5.1); Total Protein 5.6 gm/dl (6.0-8.3)
[2024-07-14] MEDS: POLYETHYLENE (MIRALAX) 17 GM PACK ONE (08:03)
[2024-07-14] MEDS: POLYETHYLENE (MIRALAX) 17 GM PACK PO PRN (08:08)
[2024-07-14] MEDS: DOCUSATE SODIUM 100 MG CAP PO SCH (08:24)
--- NOTE | 2024-07-14 11:06 | Pharmacy Report ---
Pharmacy Glycemic Short Note 2 - Date of Service July 14, 2024 - Glycemic Short BSG Results (Last 24 hours): 07/13/24 07/13/24 07/13/24 11:21 16:06 20:32 Glucose POC Glucose 143 H 141 H 112 H 07/14/24 07/14/24 05:41 07:09 Glucose 108 H POC Glucose 93 OUTPATIENT ANTIDIABETIC REGIMEN: * glipizide 5 mg PO daily HbA1c: 7.8% (07/12/24) ASSESSMENT: 07/14/24: * Patient received total 13 units of insulin yesterday: 10 units basal and 3 units bolus. * Blood sugars were well controlled yesterday. Fasting blood sugar today was 93 mg/dl. * Basal insulin dose and Novolog parameters continued the same. 07/13/24: * FS is an 78 year old male w/ sepsis secondary to complicated UTI * Patient has history of neurogenic bladder requiring self-catheterization, BPH, CKD, and T2DM * Blood sugars elevated yesterday, likely related to IV methylprednisolone * No ongoing steroids PLAN FOR INPATIENT GLYCEMIC CONTROL: * Hold outpatient oral diabetes medications * Basal insulin * Lantus 10 units SC daily * Bolus insulin * NovoLog per scale ACHS or Q6hrs while NPO * Goal Range: Low 110 mg/dL - High 140 mg/dL * Correction Factor: 30 mg/dL/unit * Nutritional / Prandial insulin per carb ratio of 1 unit per 9 grams CHO consumed
[2024-07-14] MEDS: MEROPENEM 500 MG in SYRINGE 0 ML IV SCH (11:14)
--- NOTE | 2024-07-14 11:46 | Hospitalist Progress Note ---
Date of Service July 14, 2024 Assessment & Plan (1) Sepsis: Plan Pt is an 78-year-old male with past medical history significant for type 2 diabetes, CKD stage III, hypercholesterolemia, right bundle branch block, BPH, chronic bilateral back pain, general anxiety disorder, history of tobacco abuse, history of gout, history of shingles, history of kidney stones, Hx of neurogenic bladder for which he self-caths 4 times a day admitted with severe sepsis in the setting of a UTI. The day prior to admission, he mowed his grass on a tractor and then felt very weak, tired, fatigued, had shaking chills, felt nauseated and vomited twice. Severe Sepsis Bacteremia, gram negative Complicated UTI Hx of neurogenic bladder requiring self-cath Blood pressure on lower end with leukocytosis and tachycardia Lactic acid 2.1 and repeat 2.7, has since downtrended UA suggestive of infection, urine Cx growing Klebsiella oxytoca Blood Cultures growing Klebsiella oxytoca in 2/2 bottles Possible infected back cyst- wound culture NGTD Bio[employer] serology detecting Klebsiella and Enterobacterales CT scan shows bladder stone but no obstructing lesions-follows with urology. Consulted for further recs Pt was originally on IV Vanc and Zosyn--> switched to Meropenem and Doxycycline after continuous rigors overnight on 07/11 IV fluids Given severity of symptoms and clinical worsening, ID was consulted for further recs. -recommended switching abx to Rocephin, and po Levaquin for d/c for total 14 day course Closely monitor- not requiring pressor support at this time, follow fever curve improving Pleural effusions Cardiomegaly with intralobular septal thickening Pulmonary HTN Densely Calcified coronary arteries Noted on CT chest Trop x1 wnl BNP elevated Echo grossly normal though limited visualization at times Chronic Pancreatitis Noted on CT abd/pelvis Lipase normal Pt currently appears asymptomatic Continue to monitor Consider nonurgent GI followup Possible mild COPD exacerbation Quit smoking 2012 smoked half a pack for 40 years Bilateral wheezing on exam on admission has since resolved Treated with Nebs [id number] and as needed Short course of steroids, have since been discontinued Close monitor AYW on CKD stage III Baseline creatinine 1.3-1.4 Presented creatinine 1.7 Avoid nephrotoxic agents IV fluids Continue to monitor with daily labs Improving Type 2 diabetes Hold home medications Lantus and sliding scale Closely monitor blood sugars while on steroids Glycemic consult BPH On dutasteride Straight caths 4 times daily Currently with linda in place Monitor for urinary retention As above, urology consulted for further recs with severe infection Hyperlipidemia On statin Gout On allopurinol Hypomagnesia Replete as needed Generalized anxiety disorder On doxepin DVT prophylaxis: Heparin subcu Diet: DMII Dispo: PT/OT recommending acute rehab Admission and Anticipated Discharge Date Admission Date: July 11, 2024 Subjective pt was seen with and daughter at bedside. AAOx3, states feeling better. Anxious for discharge. Review of Systems Review of Systems: All systems reviewed & are unremarkable except as noted in Subjective Physical Exam Physical Exam: General: Alert, oriented Skin: healed surgical scar on left hand Psych: appropriate mood and affect Neuro: AAOx3 HEENT: NC/AT CV: RRR Resp: Breath sounds clear bilaterally, no increased effort of breathing. Abdomen: Nontender, distended. Extremities: Trace edema in lower extremities bilaterally. Results & Data Results & Data Vital Signs (Past 12 Hours) Vital Signs Temp Pulse Pulse Resp BP Pulse Ox O2 Del Method 07/14/24 11:37 37.1 C 88 18 135/72 93 Room Air 07/14/24 11:25 Room Air 07/14/24 10:07 94 07/14/24 07:09 36.8 C 84 18 143/72 H 94 Room Air 07/14/24 06:59 88 16 95 Room Air 07/14/24 06:53 85 07/14/24 02:56 36.6 C 76 20 134/69 94 Room Air
--- NOTE | 2024-07-14 12:18 | Infectious Disease Consult ---
Date of Service July 14, 2024 Telehealth Information I performed this visit using a real-time telehealth connection between my location and the patients location ([facility]). After connecting through interactive tele-video, patient was identified by name and date of and/or wristband check.Patient (or authorized healthcare pest control service representative) was informed that this was a telemedicine visit and it was being conducted confidentially over secure lines. My office door was closed and no one else was present in the room with me.Patient (or authorized healthcare pest control service representative) provided consent to proceed with the visit, expressed an understanding of privacy and security of the telemedicine visit, and gave permission to have a hospital pest control service representative in the room in order to assist with the visit and to conduct portions of the visit, as needed. I informed the patient (or authorized healthcare pest control service representative) that I reviewed their record and presented the opportunity for them to ask any questions regarding the visit today. The patient agreed to participate. Assessment & Plan (1) Gram-negative bacteremia: (2) Complicated UTI (urinary tract infection): (3) Bladder outlet obstruction: (4) Self-catheterizes urinary bladder: (5) Bladder stone: Plan Based on the susceptibilities of Klebsiella growing from both urine and blood, I would recommend stopping all current antibiotics and starting IV ceftriaxone 2 g daily.I have no concerns for any other infections. When the patient is hemodynamically stable and ready for discharge, can step- down to oral Levaquin 750 mg daily to complete a course of 14 days including in- hospital appropriate antibiotic days. Thank you for consulting Infectious Disease. We will sign off for now. History of Present Illness History of Present Illness Mr. Oneill is a 78-year-old man with medical history of HTN, type 2 diabetes, CKD stage 3, hypercholesterolemia, BPH, generalized anxiety disorder and bladder outlet obstruction (self catheterization 4 times daily) who was admitted to [facility] on 07/11/2024 because of weakness, rigors as well as nausea and vomiting. On presentation, he was afebrile; however, few hours after admission he spiked a fever of around 39.1. On presentation he was also tachycardic at around 127; otherwise, the rest of the vitals were within normal limits. A CT scan obtained of the abdomen and pelvis showed cholelithiasis, with large bladder calculus as well as diverticulosis without any diverticulitis. His blood workup was mainly significant for leukocytosis of 12.5, YAW on CKD (creatinine 1.78 with baseline of 1.5), UA with 21-50 pyuria and 1+ bacteriuria, and soon after admission blood culture came back positive for Klebsiella oxytoca. The same organism grew in urine as well. Id team was consulted for further recommendations and to help guide antibiotic treatment. Allergies Allergy/AdvReac Type Severity Reaction Status Date / Time No Known Allergies Allergy Verified 10/07/23 09:14 Home Medications Medication Instructions Recorded Confirmed Type allopurinol 100 mg tablet 100 mg PO BID 07/11/24 07/11/24 History atorvastatin 20 mg tablet 20 mg PO DAILY 07/11/24 07/11/24 History cholecalciferol (vitamin D3) 25 25 mcg PO DAILY 07/11/24 07/11/24 History mcg (1,000 unit) tablet doxepin 75 mg capsule 75 mg PO DAILY 07/11/24 07/11/24 History dutasteride 0.5 mg capsule 0.5 mg PO DAILY 07/11/24 07/11/24 History glipizide 5 mg tablet 5 mg PO DAILY 07/11/24 07/11/24 History methenamine hippurate 1 gram tablet 1 g PO BID 07/11/24 07/11/24 History Patient History Medical History History of back problems Kidney stone Surgical History History of laparoscopic appendectomy (02/04/21) History of ureter stent (10/19/14) Social History Smoking Status: Former smoker Second Hand Exposure: No; Do You Dip or Chew Tobacco: No; Tobacco Cessation Education Requested by Patient: No Hx Alcohol Use: Yes Hx Substance Use: No Preferred Language: Citizen Of [place] Communication Ability: Effective [employer] Required: No Beliefs That Will Affect Care: None Current Living Situation: Spouse Feels Safe at Home: Yes Assistive Devices: None Review of Systems Neg except for what was mentioned in H&P. Physical Exam Couldn't be performed as the visit was conducted via telemed. Results & Data Vital Signs (Past 12 Hours) Vital Signs Temp Pulse Pulse Resp BP Pulse Ox O2 Del Method 07/14/24 11:37 37.1 C 88 18 135/72 93 Room Air 07/14/24 11:25 Room Air 07/14/24 10:07 94 07/14/24 07:09 36.8 C 84 18 143/72 H 94 Room Air 07/14/24 06:59 88 16 95 Room Air 07/14/24 06:53 85 07/14/24 02:56 36.6 C 76 20 134/69 94 Room Air Laboratory Results Microbiology: 07/11: 2/2 bottles of blood culture growing Klebsiella oxytoca 07/11: Urine culture growing Klebsiella oxytoca Diagnostic Findings Imaging: CT scan abdomen pelvis on 07/12: 1. The heart is enlarged and there is nonspecific intralobular septal thickening. This can be seen with acute versus chronic congestive change and clinical correlation will be required. 2. Small pleural effusions with dependent consolidation. This likely represents atelectasis and clinical correlation will be required. 3. There is mild nonspecific infiltration between the pancreatic head and duodenum. This may be related to fluid status. Correlate with clinical and laboratory findings for evidence of a mild pancreatitis/duodenitis. 4. Cholelithiasis. 5. The bladder is largely decompressed around a White catheter and appears thick walled. Correlate with clinical findings and urinalysis. 6. There is a large bladder calculus. 7. Advanced colonic diverticulosis without CT evidence of acute diverticulitis.
[2024-07-14] MEDS: cefTRIAXone SODIUM 2,000 MG/50 ML BAG IV SCH (16:02)
[2024-07-15 07:16] LABS: Basophils # (auto) 0.04 K/uL (0.00-0.20); Basophils % (auto) 0.5 %; Eosinophils % (auto) 3.6 %; Hematocrit (blood only) 31.9 % (42.0-52.0); Hemoglobin 10.5 g/dl (14.0-18.0); Immature Granulocytes # (auto) 0.18 K/uL (0.01-0.20); Immature Granulocytes % (auto) 2.2 %; Lymphocytes # (auto) 1.07 K/uL (1.20-3.40); Mean Corpuscular Hemoglobin 28.7 pg (25.0-34.0); Mean Corpuscular Hgb Conc 32.9 g/dL (32.0-36.0); Mean Corpuscular Volume 87.2 fL (80.0-100.0); Mean Platelet Volume 9.3 fL (9.4-12.4); Monocytes # (auto) 0.63 K/uL (0.11-0.59); Monocytes % (auto) 7.7 %; Neutrophils # (auto) 6.01 K/uL (1.40-6.50); Platelet Count 142 K/uL (130-400); RDW Coefficient of Variation 14.2 % (11.5-14.5); RDW Standard Deviation 45.1 fL (36.4-46.3); Red Blood Count 3.66 M/uL (4.70-6.10); White Blood Count 8.23 K/ul (4.8-10.8)
[2024-07-15 07:17] VITALS: TEMP 97.9
[2024-07-15 07:51] LABS: Albumin Globulin Ratio 1.4 (0.9-2); BUN Creatinine Ratio 19.8 (10-20); Bilirubin,Total 0.6 mg/dl (0.2-1.0); Calcium 7.7 mg/dl (8.6-10.3); Creatinine Clr Calc Pharmacy 71.4 ml/min; Est GFR (African American) 76.4 ml/min; Globulin 2.2 gm/dl (2.5-4.0); Phosphorus 2.5 mg/dl (2.5-4.9); Potassium 3.7 mmol/L (3.5-5.1); Total Protein 5.2 gm/dl (6.0-8.3)
[2024-07-15 09:06] LABS: Magnesium 1.7 mg/dl (1.7-2.4)
[2024-07-15 11:03] VITALS: RESP 18; O2SAT 95
--- NOTE | 2024-07-15 14:24 | Discharge Summary ---
Discharge Summary Date of Service July 15, 2024 Principal Dx & Hospital Course #1 = Principal Diagnosis (1) Sepsis: Plan Pt is an 78-year-old male with past medical history significant for type 2 diabetes, CKD stage III, hypercholesterolemia, right bundle branch block, BPH, chronic bilateral back pain, general anxiety disorder, history of tobacco abuse, history of gout, history of shingles, history of kidney stones, Hx of neurogenic bladder for which he self-caths 4 times a day admitted with severe sepsis in the setting of a UTI. The day prior to admission, he mowed his grass on a tractor and then felt very weak, tired, fatigued, had shaking chills, felt nauseated and vomited twice. Severe Sepsis Bacteremia, gram negative Complicated UTI Hx of neurogenic bladder requiring self-cath Blood pressure on lower end with high fevers, leukocytosis and tachycardia on admission Lactic acid 2.1 and repeat 2.7, has since downtrended UA suggestive of infection, urine Cx grew Klebsiella oxytoca Blood Cultures grew Klebsiella oxytoca in 2/2 bottles Possible infected back cyst- wound culture [facility] [employer] serology detected Klebsiella and Enterobacterales CT scan showed bladder stone but no obstructing lesions-follows with urology. Consulted for further recs, recommended outpatient followup. Pt was originally on IV Vanc and Zosyn--> switched to Meropenem and Doxycycline after continuous rigors overnight on 07/11 IV fluids Given severity of symptoms and clinical worsening, ID was consulted for further recs. -recommended switching abx to Rocephin, and po Levaquin for d/c for total 14 day course Pt was treated for 7 days with IV antibiotics and discharged with 7 days of oral levaquin per ID recs. Did not require pressor support Pt discharged with linda per recs of Urology, Dr García on day of discharge. Linda replaced on day of discharge 07/15/24. Close PCP and Urology follow up after discharge. Pleural effusions Cardiomegaly with intralobular septal thickening Pulmonary HTN Densely Calcified coronary arteries Noted on CT chest Trop x1 wnl BNP elevated Echo grossly normal though limited visualization at times PCP followup Chronic Pancreatitis Noted on CT abd/pelvis Lipase normal Pt currently appears asymptomatic Continue to monitor Consider nonurgent GI followup PCP followup Possible mild COPD exacerbation Quit smoking 2012 smoked half a pack for 40 years Bilateral wheezing on exam on admission has since resolved Treated with Nebs [id number] and as needed Short course of steroids, have since been discontinued PCP followup YAW on CKD stage III Baseline creatinine 1.3-1.4 Presented creatinine 1.7 Avoid nephrotoxic agents IV fluids Continue to monitor with daily labs Cr 1.06, normal on discharge PCP f/u Type 2 diabetes Held home medications Lantus and sliding scale Closely monitored blood sugars while on steroids Glycemic consult Resume home regimen on discharge PCP followup BPH On dutasteride Straight caths 4 times daily Currently with linda in place. Pt discharged with linda per recs of Urology, Dr García on day of discharge. Linda replaced on day of discharge 07/15/24. Monitor for urinary retention Please ensure close followup with urology after discharge. Hyperlipidemia On statin Gout On allopurinol Hypomagnesia Repleted as needed Generalized anxiety disorder On doxepin Notes For Next Care Provider Pt discharged with linda per recs of Urology, Dr García on day of discharge. Linda replaced on day of discharge 07/15/24. please ensure close followup with Urology Medication Changes From Visit Levaquin 750mg daily x 7 days Admission HPI Per Admitting Provider 78-year-old male with past medical history significant for type 2 diabetes, CKD stage III, hypercholesterolemia, right bundle branch, BPH, chronic bilateral back pain, general anxiety disorder, history of tobacco abuse, history of gout, history of shingles, history of kidney stones, self Catheterizes urinary bladder 4 times a day comes because of sepsis and UTI. Yesterday he mowed his grass on a tractor and when he came inside home he was feeling very weak and tired and fatigued . And was having a lot of shaking chills, felt nauseated and vomited twice.. Denies any tick bites. Currently feeling slightly better. Has mild headache. Mild back pain. Denies any chest pain. No shortness of breath. No cough. No runny nose or sore throat. No abdominal pain. Normal bowel movements. Past medical history. As mentioned above Past surgical history. Injection of lumbosacral spine. Laparoscopic appendectomy. Social history. . Quit smoking proximal 0.5 pack a day for 40 years. No alcohol use. No drug use. Family history. Father had heart disorder. Gallbladder disease. Mother had kidney problems. Admission Exam Per Admitting Provider General- Not in distress. Head- atraumatic Eyes- PERRL. ENT- oropharynx clear Neck- supple, no JVD. Lungs- clear to auscultation b/l wheezing, no crackles. Heart- regular rhythm;tachycardia no murmur, no gallop. Abdomen- normal bowel sounds, soft, nontender, no distension Extremities- no pretibial edema, no erythema seen Neuro- alert, oriented PERRL, EOMI; no facial palsy; no dysarthria; moves extremities Discharge Exam General: Alert, orientedx3 Skin: healed surgical scar on left hand Psych: appropriate mood and affect Neuro: AAOx3 HEENT: NC/AT CV: RRR Resp: Breath sounds clear bilaterally, no increased effort of breathing. Abdomen: Nontender, distended. Extremities: Trace edema in lower extremities bilaterally. Updated Medication List Medication Instructions Recorded Confirmed Type allopurinol 100 mg tablet 100 mg PO BID 07/11/24 07/11/24 History atorvastatin 20 mg tablet 20 mg PO DAILY 07/11/24 07/11/24 History cholecalciferol (vitamin D3) 25 25 mcg PO DAILY 07/11/24 07/11/24 History mcg (1,000 unit) tablet doxepin 75 mg capsule 75 mg PO DAILY 07/11/24 07/11/24 History dutasteride 0.5 mg capsule 0.5 mg PO DAILY 07/11/24 07/11/24 History glipizide 5 mg tablet 5 mg PO DAILY 07/11/24 07/11/24 History methenamine hippurate 1 gram tablet 1 g PO BID 07/11/24 07/11/24 History levofloxacin 750 mg tablet 750 mg PO DAILY 7 days #7 tabs 07/15/24 Rx Hospital Stay Data Consultations 07/11/24 08:55 ED Decision to Admit Stat 07/12/24 09:56 Consult Urology Routine 07/13/24 12:13 Consult Infectious Diseases Routine Diagnostic Imagining Performed 07/11/24 01:58 CT abd pelvis wo con Stat 07/12/24 07:00 CT Abd and Pelvis [CT abd pelvis wo con] Urgent CT chest diagnostic wo con Urgent Chest X-Ray 07/11/24 00:09 XR chest 1V portable CLINICAL HISTORY: Sepsis. COMPARISON STUDY: Chest radiograph February 04, 2021. FINDINGS: Lung volumes are normal. Lungs are clear. There is no pneumothorax or pleural effusion. Cardiomediastinal silhouette is stable. There is no evidence for pulmonary edema. IMPRESSION: No acute cardiopulmonary findings. No significant change in appearance of the chest. ACT 112: Negative or not required by law. Electronically signed by: Aly Narayan M.D. 07/11/2024 6:58 AM Abdomen/Pelvis CT 07/11/24 01:58 Exam(s): CT ABDOMEN + PELVIS Without Contrast EXAM: CT Abdomen and Pelvis Without Intravenous Contrast CLINICAL HISTORY: Reason for exam: uti, yaw. TECHNIQUE: Axial computed tomography images of the abdomen and pelvis without intravenous contrast. CTDI is 28.14 mGy and DLP is 1535.01 mGy-cm. Automated exposure control was utilized for the study. A dose lowering technique was utilized adhering to the principles of ALARA. COMPARISON: No relevant prior studies available. FINDINGS: Lung bases: Unremarkable. No mass. No consolidation. ABDOMEN: Liver: Unremarkable. Gallbladder and bile ducts: Cholelithiasis. No ductal dilation. Pancreas: Unremarkable. No ductal dilation. Spleen: Unremarkable. No splenomegaly. Adrenals: Unremarkable. No mass. Kidneys and ureters: Dense RIGHT renal lesion measures 7 mm, which may represent a hemorrhagic or proteinaceous cyst. Bilateral renal cysts, measuring up to 8.2 cm in the LEFT lower pole. Atrophy of the RIGHT kidney. No obstructing stones. No hydronephrosis. Stomach and bowel: Duodenal diverticulum measures 3.8 cm. Diverticulosis, without acute diverticulitis. No small bowel obstruction. No free intraperitoneal air. PELVIS: Appendix: No findings to suggest acute appendicitis. Bladder: Nonobstructing right-sided bladder stone measures approximately 1.5 cm. Reproductive: Unremarkable as visualized. ABDOMEN and PELVIS: Intraperitoneal space: Unremarkable. No free air. No significant fluid collection. Bones/joints: Degenerative changes of the spine. No acute fracture. No dislocation. Soft tissues: Unremarkable. Vasculature: Atherosclerotic changes of the aorta. No abdominal aortic aneurysm. Lymph nodes: Unremarkable. No enlarged lymph nodes. IMPRESSION: 1. Cholelithiasis. 2. Nonobstructing right-sided bladder stone measures approximately 1.5 cm. 3. Duodenal diverticulum measures 3.8 cm. 4. Diverticulosis, without acute diverticulitis. No small bowel obstruction. No free intraperitoneal air. Electronically signed by: Ventura Kuhn MD 07/11/24 03:13 AM Abdomen/Pelvis CT 07/12/24 07:00 CT SCAN OF THE CHEST, ABDOMEN, AND PELVIS WITHOUT IV CONTRAST CLINICAL HISTORY: Fevers. COMPARISON STUDY: Abdominal CT dated 07/11/2024. Chest x-ray dated 07/11/2024. TECHNIQUE: Unenhanced CT scan of the chest, abdomen, and pelvis was performed from the thoracic inlet to the proximal femora. Images are reviewed in the axial, sagittal, and coronal planes. IV contrast was not administered as per the referring clinician. Note that the examination was performed in significantly suboptimal fashion without oral and IV contrast. A dose lowering technique was utilized adhering to the principles of ALARA. CT DOSE: 2589.01 mGy.cm FINDINGS: CHEST: Thyroid: Imaged portions of the thyroid gland are normal in size and attenuation. Thoracic aorta: The thoracic aorta is normal in caliber and demonstrates standard 3-vessel arch anatomy. Heart: The heart is mildly enlarged and without pericardial effusion. The coronary arteries are densely calcified. The main pulmonary arteries are mildly dilated suggesting pulmonary artery hypertension. Lungs and pleural spaces: Evaluation of the lung parenchyma is compromised by motion artifact. The trachea and central airways appear clear. There is mild intralobular septal thickening. There are small pleural effusions with dependent consolidation. Mediastinum: There are calcification containing mediastinal lymph nodes. No lymphadenopathy is seen. Sheryl: Clear. Axillae: There is no axillary lymphadenopathy. Bony thorax: The skeletal structures are osteopenic. Degenerative change is noted in the shoulders and thoracic spine. There are chronic/healed left-sided rib fractures. No lytic or blastic lesions are identified. ABDOMEN AND PELVIS: Liver: The unenhanced liver is normal in size, contour, and attenuation. There is no intrahepatic biliary ductal dilatation. Gallbladder: There are calcified gallstones with no CT evidence of acute cholecystitis. Spleen: Normal in size and attenuation. Pancreas: The unenhanced pancreas is mildly atrophic. Scattered parenchymal calcifications suggest chronic pancreatitis. Adrenal glands: Unremarkable. Kidneys: There is asymmetric cortical atrophy of the right kidney as compared to the left. No hydronephrosis is seen. Simple and complex/hyperdense bilateral renal cysts measure up to 8.5 cm. No renal calculi are identified and there is no ureteral stone. Abdominal vasculature: The abdominal aorta is normal in course and caliber noting moderate atherosclerotic calcification. Stomach and bowel: There is a small hiatal hernia. A rectal temperature probe is in place. No bowel obstruction is seen. There is advanced colonic diverticulosis without CT evidence of acute diverticulitis. There is evidence of prior appendectomy a small duodenal diverticulum is noted. There is mild infiltration seen between the pancreatic head and duodenum Peritoneum: There is no intraperitoneal free air or abdominal ascites. There is a fat-containing umbilical hernia. Lymphadenopathy: None. Pelvic viscera: The bladder is largely decompressed and a Linda catheter and appears thick-walled. Small foci of intraluminal gas are nonspecific. A 1.6 cm bladder calculus is seen posteriorly on the right. The prostate gland is mildly enlarged and heterogeneous. Skeletal structures: The skeletal structures are osteopenic. There is moderate lumbosacral spondylosis. No lytic or blastic lesions are seen. IMPRESSION: 1. The heart is enlarged and there is nonspecific intralobular septal thickening. This can be seen with acute versus chronic congestive change and clinical correlation will be required. 2. Small pleural effusions with dependent consolidation. This likely represents atelectasis and clinical correlation will be required. 3. There is mild nonspecific infiltration between the pancreatic head and duodenum. This may be related to fluid status. Correlate with clinical and laboratory findings for evidence of a mild pancreatitis/duodenitis. 4. Cholelithiasis. 5. The bladder is largely decompressed around a Linda catheter and appears thick walled. Correlate with clinical findings and urinalysis. 6. There is a large bladder calculus. 7. Advanced colonic diverticulosis without CT evidence of acute diverticulitis. 8. Additional findings as above. ACT 112: Negative or not required by law. Electronically signed by: Nii Griffin M.D. 07/12/2024 9:[address] 07/12/24 07:00 CT SCAN OF THE CHEST, ABDOMEN, AND PELVIS WITHOUT IV CONTRAST CLINICAL HISTORY: Fevers. COMPARISON STUDY: Abdominal CT dated 07/11/2024. Chest x-ray dated 07/11/2024. TECHNIQUE: Unenhanced CT scan of the chest, abdomen, and pelvis was performed from the thoracic inlet to the proximal femora. Images are reviewed in the axial, sagittal, and coronal planes. IV contrast was not administered as per the referring clinician. Note that the examination was performed in significantly suboptimal fashion without oral and IV contrast. A dose lowering technique was utilized adhering to the principles of ALARA. CT DOSE: 2589.01 mGy.cm FINDINGS: CHEST: Thyroid: Imaged portions of the thyroid gland are normal in size and attenuation. Thoracic aorta: The thoracic aorta is normal in caliber and demonstrates standard 3-vessel arch anatomy. Heart: The heart is mildly enlarged and without pericardial effusion. The coronary arteries are densely calcified. The main pulmonary arteries are mildly dilated suggesting pulmonary artery hypertension. Lungs and pleural spaces: Evaluation of the lung parenchyma is compromised by motion artifact. The trachea and central airways appear clear. There is mild intralobular septal thickening. There are small pleural effusions with dependent consolidation. Mediastinum: There are calcification containing mediastinal lymph nodes. No lymphadenopathy is seen. Sheryl: Clear. Axillae: There is no axillary lymphadenopathy. Bony thorax: The skeletal structures are osteopenic. Degenerative change is noted in the shoulders and thoracic spine. There are chronic/healed left-sided rib fractures. No lytic or blastic lesions are identified. ABDOMEN AND PELVIS: Liver: The unenhanced liver is normal in size, contour, and attenuation. There is no intrahepatic biliary ductal dilatation. Gallbladder: There are calcified gallstones with no CT evidence of acute cholecystitis. Spleen: Normal in size and attenuation. Pancreas: The unenhanced pancreas is mildly atrophic. Scattered parenchymal calcifications suggest chronic pancreatitis. Adrenal glands: Unremarkable. Kidneys: There is asymmetric cortical atrophy of the right kidney as compared to the left. No hydronephrosis is seen. Simple and complex/hyperdense bilateral renal cysts measure up to 8.5 cm. No renal calculi are identified and there is no ureteral stone. Abdominal vasculature: The abdominal aorta is normal in course and caliber noting moderate atherosclerotic calcification. Stomach and bowel: There is a small hiatal hernia. A rectal temperature probe is in place. No bowel obstruction is seen. There is advanced colonic diverticulosis without CT evidence of acute diverticulitis. There is evidence of prior appendectomy a small duodenal diverticulum is noted. There is mild infiltration seen between the pancreatic head and duodenum Peritoneum: There is no intraperitoneal free air or abdominal ascites. There is a fat-containing umbilical hernia. Lymphadenopathy: None. Pelvic viscera: The bladder is largely decompressed and a Linda catheter and appears thick-walled. Small foci of intraluminal gas are nonspecific. A 1.6 cm bladder calculus is seen posteriorly on the right. The prostate gland is mildly enlarged and heterogeneous. Skeletal structures: The skeletal structures are osteopenic. There is moderate lumbosacral spondylosis. No lytic or blastic lesions are seen. IMPRESSION: 1. The heart is enlarged and there is nonspecific intralobular septal thickening. This can be seen with acute versus chronic congestive change and clinical correlation will be required. 2. Small pleural effusions with dependent consolidation. This likely represents atelectasis and clinical correlation will be required. 3. There is mild nonspecific infiltration between the pancreatic head and duodenum. This may be related to fluid status. Correlate with clinical and laboratory findings for evidence of a mild pancreatitis/duodenitis. 4. Cholelithiasis. 5. The bladder is largely decompressed around a Linda catheter and appears thick walled. Correlate with clinical findings and urinalysis. 6. There is a large bladder calculus. 7. Advanced colonic diverticulosis without CT evidence of acute diverticulitis. 8. Additional findings as above. ACT 112: Negative or not required by law. Electronically signed by: Nii Griffin M.D. 07/12/2024 9:34 AM Discharge Instructions Given to Patient (Per Discharging Provider) Miguel, You are being discharged after a urinary infection that spread to your bloodstream. We treated you with IV antibiotics for 7 days and we are discharging you home with an additional 7 days of oral antibiotics (Levofloxacin) per the recommendations of Infectious Disease. You were also seen by Urology, who recommends following up outpatient. They recommend that you continue with the linda until you follow up with them. Your linda was replaced today. Hold your home methenamine until you complete the Levofloxacin course of antibiotics. Can resume it afterwards. Please keep close follow up with your primary care provider after discharge. Please do not hesitate to come back to the emergency room if your symptoms worsen or return. It was a pleasure taking care of you while you were here. Total Time Total Time Spent Total Time Spent (In Minutes): 75
[2024-07-15 16:13] VITALS: BP 149/76; PULSE 95
[2024-07-15] MEDS: levoFLOXacin 750 MG TAB PO STA (16:42)
== END 2024-07-15 17:30 | disposition home health service (06) | DRG 872 ==
LOC: ED 23:19 → EDINP 07-11 06:00 → SUATTDRO 07-11 06:00 → 2S 07-11 06:32

== ENCOUNTER 2024-07-17 22:18 | Inpatient (IN) ==
[2024-07-17 22:57] LABS: Basophils # (auto) 0.03 K/uL (0.00-0.20); Basophils % (auto) 0.3 %; Eosinophils # (auto) 0.16 K/uL (0.00-0.50); Eosinophils % (auto) 1.8 %; Hematocrit (blood only) 33.3 % (42.0-52.0); Hemoglobin 11.4 g/dl (14.0-18.0); Immature Granulocytes # (auto) 0.16 K/uL (0.01-0.20); Immature Granulocytes % (auto) 1.8 %; Lymphocytes # (auto) 0.51 K/uL (1.20-3.40); Lymphocytes % (auto) 5.9 %; Mean Corpuscular Hemoglobin 29.1 pg (25.0-34.0); Mean Corpuscular Hgb Conc 34.2 g/dL (32.0-36.0); Mean Corpuscular Volume 84.9 fL (80.0-100.0); Mean Platelet Volume 9.1 fL (9.4-12.4); Monocytes % (auto) 1.1 %; Neutrophils # (auto) 7.75 K/uL (1.40-6.50); Neutrophils % (auto) 89.1 %; Platelet Count 171 K/uL (130-400); RDW Coefficient of Variation 14.4 % (11.5-14.5); RDW Standard Deviation 44.1 fL (36.4-46.3); Red Blood Count 3.92 M/uL (4.70-6.10); White Blood Count 8.71 K/ul (4.8-10.8)
--- NOTE | 2024-07-17 22:57 | Emergency Department Note ---
Impression & Plan Sepsis, Non-ST elevation CA (NSTEMI), Elevated procalcitonin, Acute UTI (urinary tract infection) ED Provider Note HISTORY OF PRESENT ILLNESS: Patient is an 78-year-old male presenting with shakiness.Patient was seen earlier in the emergency department for similar symptoms. He had improved after interventions and was discharged home. Family reports that since being home the patient started "having the shakes." They report that this was his presenting symptom when he was admitted for urosepsis a few weeks ago. Patient denies any chest pain, but does report some shortness of breath this evening. He does not wear any supplemental oxygen at baseline. He denies any abdominal pain, nausea or vomiting. ROS: as above PHYSICAL EXAM: Constitutional: Patient appears in no acute distress. HENT: Head: Normocephalic and atraumatic. Eyes: EOMI, PERRL Mouth/Throat: Mucous membranes moist. Neck: Trachea midline. Neck supple. Cardiovascular: Tachycardic with regular rhythm. No murmurs, rubs or gallops. Intact distal pulses. Pulmonary/Chest: No respiratory distress. Breath sounds clear and equal bilaterally. No wheezes or rales. Abdominal: Abdomen soft, no tenderness, rebound or guarding. White catheter in place Musculoskeletal: No edema, tenderness or deformity noted. Skin: Warm and dry. No rash, erythema, pallor or cyanosis Psychiatric: Appropriate mood and affect for situation. Neurological: Alert and keenly responsive. CN II-XII grossly intact, moving all extremities equally and fully. MDM: - Vitals signs showed hypertension, tachycardia and fever. - History obtained via patient and patient's family. History as above. - Chronic conditions affecting care: neurogenic bladder; complicated UTI hx; Hypercholesterolemia; RBBB; CKD stage III; DM-2 - Differential diagnoses include, but are not limited to: UTI; ACS; pneumonia; electrolyte abnormality; viral syndrome - Order placed for continuous cardiac monitoring. At this time, monitor showed rate of 101 bpm with normal sinus rhythm, per my interpretation. - External medical records reviewed. Discharge summary dated 07/15/2024 was reviewed. Patient was admitted at that time for severe sepsis secondary to complicated UTI and gram-negative bacteremia. - EKG interpreted by myself showed normal sinus rhythm. Rate 101 bpm. QT 388. No acute ischemic changes. Noted have a right bundle branch block. - Laboratory workup interpreted by myself showed normal WBC with neutrophil predominance; anemia (Hgb 11.4); stable electrolytes; elevated troponin (83); normal lipase; normal lactate; elevated procalcitonin (15.50); normal PT/INR - Blood cultures obtained - Patient given 2.5L NS in ER. Patient sepsis fluid volume calculation based on ideal body weight is 2427.00 mL. - CXR negative for pneumonia, per my interpretation - On review of patient's discharge summary during his recent hospital admission, he was initially started on IV vancomycin and Zosyn, but was switched to meropenem and doxycycline after he had continued rigors throughout his inpatient stay. He was discharged with 7 days of oral Levaquin. - COVID/flu/RSV negative - IV meropenem and doxycycline ordered for antibiotic coverage. - UA showed significant number of WBCs and positive for leukocyte esterase. No bacteria noted. However, it is likely the source of the patient's sepsis. - Discussion was had with corrections caseworker about patient's case and need for admission - Hospitalist, Dr. Lyon, consulted for admission - [facility] for further evaluation and management. I have personally spent 38 minutes of critical care time in the direct management of this patient. This includes bedside care, interpretation of diagnostic studies, and testing, discussion with consultants, patient, and family members, and other required patient management activities. This 38 minutes is in excess of all separately billable procedures. ASSESSMENT AND PLAN: Diagnosis: Sepsis; NSTEMI; elevated procalcitonin; acute UTI Plan: Admit Past Med/Surg History Problem List (Updated 07/18/24 @ 00:54 by Yesenia Bhakta MD) Acute UTI (urinary tract infection) (Acute) Elevated procalcitonin (Acute) Non-ST elevation CA (NSTEMI) (Acute) Sepsis (Acute) Hypocalcemia (Acute) Hypomagnesemia (Acute) White catheter in place (Acute) History of sepsis (Acute) SOB (shortness of breath) (Acute) Weakness (Acute) Self-catheterizes urinary bladder Bladder outlet obstruction Complicated UTI (urinary tract infection) Gram-negative bacteremia Bladder stone Sepsis Nausea (Acute) Fatigue (Acute) Neurogenic bladder, flaccid Uric acid kidney stone Urinary retention History of laparoscopic appendectomy (02/04/21) Laparoscopic Appendectomy Dr. Hutchinson 02/04/2021 Encounter for pre-operative examination Abdominal pain (Acute) Leukocytosis (Acute) Acute appendicitis (Acute) Lumbar canal stenosis (Acute) Lumbosacral radiculopathy at L5 (Acute) Ureteral stone (Acute) UTI (urinary tract infection) (Acute) Kidney stone (Chronic) Chronic back pain (Chronic) Acute kidney injury (Acute) Intractable pain (Acute) Renal colic (Acute 10/18/14) Medical History History of back problems Kidney stone Surgical History History of laparoscopic appendectomy (02/04/21) History of ureter stent (10/19/14) Social History Smoking Status: Former smoker Second Hand Exposure: No; Do You Dip or Chew Tobacco: No; Hx Alcohol Use: Yes Hx Substance Use: No Preferred Language: Polish Communication Ability: Effective 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 Beliefs That Will Affect Care: None Current Living Situation: Spouse Feels Safe at Home: Yes Assistive Devices: None Allergies Allergies Allergy/AdvReac Type Severity Reaction Status Date / Time No Known Allergies Allergy Verified 10/07/23 09:14 Home Meds Home Medications Medication Instructions Recorded Confirmed allopurinol 100 mg tablet 100 mg PO BID 07/11/24 07/11/24 atorvastatin 20 mg tablet 20 mg PO DAILY 07/11/24 07/11/24 cholecalciferol (vitamin D3) 25 25 mcg PO DAILY 07/11/24 07/11/24 mcg (1,000 unit) tablet doxepin 75 mg capsule 75 mg PO DAILY 07/11/24 07/11/24 dutasteride 0.5 mg capsule 0.5 mg PO DAILY 07/11/24 07/11/24 glipizide 5 mg tablet 5 mg PO DAILY 07/11/24 07/11/24 methenamine hippurate 1 gram tablet 1 g PO BID 07/11/24 07/11/24 Previous Rx's Medication Instructions Recorded levofloxacin 750 mg tablet 750 mg PO DAILY 7 days #7 tabs 07/15/24 Results & Data (ED) Vital Signs Vital Signs - 24 hr 07/17/24 22:21 07/17/24 22:34 07/17/24 22:44 Temperature 37.2 C 39.0 C H Temperature Source Oral Rectal Pulse Rate 111 H 103 H Pulse Rate [Apical] 102 H Pulse Rhythm Regular Pulse Rhythm [Apical] Regular Pulse Strength Normal Pulse Strength [Apical] Normal Respiratory Rate 16 18 Respiratory Effort / Characteristics Non-Labored Spontaneous Non-Labored Spontaneous Respiratory Depth Normal Normal Respiratory Pattern Regular Regular Blood Pressure 136/70 Blood Pressure [Right Arm] 156/72 H Blood Pressure Mean 92 Blood Pressure Mean [Right Arm] 100 Blood Pressure Position [Right Arm] Sitting Pulse Oximetry 92 Oxygen Delivery Method Room Air Sepsis Recent Fever Within 48 Hours No Sepsis New/Unexplained Change in Mental Status No Sepsis Action Taken by Nursing No Action Required 07/17/24 22:44 Temperature Temperature Source Pulse Rate 102 H Pulse Rate [Apical] Pulse Rhythm Regular Pulse Rhythm [Apical] Pulse Strength Pulse Strength [Apical] Respiratory Rate 18 Respiratory Effort / Characteristics Respiratory Depth Respiratory Pattern Blood Pressure Blood Pressure [Right Arm] Blood Pressure Mean Blood Pressure Mean [Right Arm] Blood Pressure Position [Right Arm] Pulse Oximetry 92 Oxygen Delivery Method Room Air Sepsis Recent Fever Within 48 Hours Sepsis New/Unexplained Change in Mental Status Sepsis Action Taken by Nursing Laboratory Data 07/17/24 22:40 07/17/24 22:40 Lab Results 07/17/24 07/17/24 07/17/24 Range/Units 22:40 23:00 23:50 WBC 8.71 (4.8-10.8) K/ul RBC 3.92 L (4.70-6.10) M/uL Hgb 11.4 L (14.0-18.0) g/dl Hct 33.3 L (42.0-52.0) % MCV 84.9 (80.0-100.0) fL MCH 29.1 (25.0-34.0) pg MCHC 34.2 (32.0-36.0) g/dL RDW Std Deviation 44.1 (36.4-46.3) fL RDW Coeff of Kacy 14.4 (11.5-14.5) % Plt Count 171 (130-400) K/uL MPV 9.1 L (9.4-12.4) fL Immature Gran % (Auto) 1.8 % Neut % (Auto) 89.1 % Lymph % (Auto) 5.9 % [place] % (Auto) 1.1 % Eos % (Auto) 1.8 % Baso % (Auto) 0.3 % Neut # (Auto) 7.75 H (1.40-6.50) K/uL Lymph # (Auto) 0.51 L (1.20-3.40) K/uL [place] # (Auto) 0.10 L (0.11-0.59) K/uL Eos # (Auto) 0.16 (0.00-0.50) K/uL Baso # (Auto) 0.03 (0.00-0.20) K/uL Immature Gran # (Auto) 0.16 (0.01-0.20) K/uL PT 11.5 (9.0-12.0) Seconds INR 1.1 (0.9-1.1) Sodium 136 (136-145) mmol/L Potassium 3.6 (3.5-5.1) mmol/L Chloride 106 (98-107) mmol/L Carbon Dioxide 21 (21-32) mmol/L Anion Gap 9 (3-11) BUN 19 (6-23) mg/dl Creatinine 1.22 (0.6-1.4) mg/dl Est Cr Clr Drug Dosing Not Reportable Est GFR ( Amer) 64.5 ml/min Est GFR (Non-Af Amer) 55.6 ml/min BUN/Creatinine Ratio 15.6 (10-20) Glucose 76 (70-99(Fasting)) mg/dl Lactate 1.7 (0.4-2.0) mmol/L Calcium 8.2 L (8.6-10.3) mg/dl Magnesium 1.7 (1.7-2.4) mg/dl Total Bilirubin 1.0 (0.2-1.0) mg/dl AST 38 (13-39) U/L ALT 46 (7-52) U/L Alkaline Phosphatase 81 (34-104) U/L Troponin I High Sens 83.0 H* D (0-20) pg/ml Total Protein 5.9 L (6.0-8.3) gm/dl Albumin 3.3 L (3.4-5.0) gm/dl Globulin 2.6 (2.5-4.0) gm/dl Albumin/Globulin Ratio 1.3 (0.9-2) Lipase 26 (11-82) U/L Procalcitonin 15.50 H (0-0.5) ng/ml Urine Color Yellow Urine Appearance Cloudy A (Clear) Urine pH 5.0 (4.5-7.5) Ur Specific [place] 1.040 H (1.000-1.030) Urine Protein 1+ H (Negative) Urine Glucose (UA) Negative (Negative) Urine Ketones Negative (Negative) Urine Blood 2+ H (Negative) Urine Nitrite Negative (Negative) Urine Bilirubin Negative (Negative) Urine Urobilinogen Negative (Negative) Ur Leukocyte Esterase 1+ H (Negative) SARS-CoV-2 (PCR) NEGATIVE (Negative) Influenza Type A (PCR) Negative (Neg) Influenza Type B (PCR) Negative (Neg) RSV (RT-PCR) Negative (Neg) Administered Medications Meropenem 500 mg/ Syringe 10 mls @ 2 mls/min IV Q6H [facility]; Protocol Stop: 07/19/24 23:29 Last Admin: 07/18/24 00:16 Dose: 2 mls/min Documented By: RAYNE Doxycycline Hyclate 100 mg/ (Dextrose) 100 mls @ 50 mls/hr IV NOW STA Stop: 07/18/24 01:26 Last Admin: 07/18/24 00:16 Dose: 50 mls/hr Documented By: RAYNE Discontinued Medications Acetaminophen (Ofirmev) 1,000 mg in 100 mls @ 400 mls/hr IV NOW STA Stop: 07/17/24 23:07 Last Infusion: 07/17/24 23:41 Dose: Infused Documented By: Admin: 07/17/24 22:59 Dose: 400 mls/hr Documented By: NGOZI Sodium Chloride (Nss) 1,000 mls @ 999 mls/hr IV .Q1H1M ONE Stop: 07/18/24 00:34 Last Admin: 07/18/24 00:18 Dose: 999 mls/hr Documented By: RAYNE Sodium Chloride (Nss) 500 mls @ 999 mls/hr IV .Q31M ONE Stop: 07/18/24 00:04 Last Admin: 07/18/24 00:18 Dose: Not Given Documented By: RAYNE Discharge Plan Visit Data Chief Complaint: Infection Stated Complaint: SEPSIS, SHAKES ED Provider: Yesenia Bhakta Discharge Problem: Sepsis, Non-ST elevation CA (NSTEMI), Elevated procalcitonin, Acute UTI (urinary tract infection) Forms Stand Alone Forms: My [facility] Prescriptions Prescriptions: No Action atorvastatin 20 mg Tablet 20 mg PO DAILY doxepin 75 mg Capsule 75 mg PO DAILY allopurinol 100 mg Tablet 100 mg PO BID methenamine hippurate 1 gram Tablet 1 g PO BID Hold Instructions: until antibiotics completed glipizide 5 mg Tablet 5 mg PO DAILY dutasteride 0.5 mg Capsule 0.5 mg PO DAILY cholecalciferol (vitamin D3) 25 mcg (1,000 unit) Tablet 25 mcg PO DAILY levofloxacin 750 mg tablet 750 mg PO DAILY 7 Days Qty: 7 0RF Referrals Referrals: Connor Kee MD [Primary Care Provider] -
[2024-07-17] MEDS: ACETAMINOPHEN 1,000 MG/100 ML VIAL IV STA (22:59)
[2024-07-17 23:13] LABS: Alanine Aminotransferase 46 U/L (7-52); Albumin Globulin Ratio 1.3 (0.9-2); Albumin Level 3.3 gm/dl (3.4-5.0); Alkaline Phosphatase 81 U/L (34-104); Anion Gap 9 (3-11); Aspartate Aminotransferase 38 U/L (13-39); BUN Creatinine Ratio 15.6 (10-20); Blood Urea Nitrogen 19 mg/dl (6-23); Calcium 8.2 mg/dl (8.6-10.3); Carbon Dioxide 21 mmol/L (21-32); Chloride 106 mmol/L (98-107); Est GFR (African American) 64.5 ml/min; Est GFR (Non-African American) 55.6 ml/min; Globulin 2.6 gm/dl (2.5-4.0); Glucose 76 mg/dl (70-99(Fasting)); Lipase 26 U/L (11-82); Magnesium 1.7 mg/dl (1.7-2.4); Potassium 3.6 mmol/L (3.5-5.1); Sodium 136 mmol/L (136-145); Total Protein 5.9 gm/dl (6.0-8.3)
[2024-07-17 23:34] LABS: INR 1.1 (0.9-1.1); Prothrombin Time 11.5 Seconds (9.0-12.0)
[2024-07-17 23:52] LABS: Influenza A virus by PCR Negative (Neg); Influenza B virus by PCR Negative (Neg); RSV by PCR Negative (Neg); SARS CoV2 RNA(COVID-19) Ceph NEGATIVE (Negative)
[2024-07-18] MEDS: DOXYCYCLINE HYCLATE 100 MG in DEXTROSE 5% MINI-B 100 ML IV STA (00:16)
[2024-07-18] MEDS: MEROPENEM 500 MG in SYRINGE 0 ML IV SCH ×2 (00:16→05:52)
[2024-07-18] MEDS: SODIUM CHLORIDE 0.9% 500 ML IV ONE (00:18)
[2024-07-18] MEDS: SODIUM CHLORIDE 0.9% 1,000 ML IV ONE (00:18)
[2024-07-18 00:43] LABS: Appearance Urine Cloudy (Clear); Bacteria Urine Automated None Seen (None Seen); Bilirubin Urine Negative (Negative); Blood Urine 2+ (Negative); Color Urine Yellow; Epithelial Cell Urine Auto 0-2 /hpf (0-2); Glucose Urine UA Negative (Negative); Ketones Urine Negative (Negative); Leukocyte Esterase Urine 1+ (Negative); Nitrite Urine Negative (Negative); Protein Urine 1+ (Negative); Urobilinogen Urine Negative (Negative); WBC Urine Automated 21-50 /hpf (0-5)
[2024-07-18 01:01] LABS: Uric Acid Crystals Urine Present (None Prsent)
--- NOTE | 2024-07-18 02:21 | History & Physical Report ---
Date of Service July 18, 2024 Assessment & Plan (1) Sepsis: Plan: 78-year-old male with past medical history significant for type 2 diabetes, CKD stage III, hypercholesterolemia, right bundle branch block, BPH, chronic bilateral back pain, general anxiety disorder, history of tobacco abuse, history of gout, history of shingles, history of kidney stones, Hx of neurogenic bladder for which he self-caths 4 times a day Recently admitted with severe sepsis in the setting of a UTI and found to have bacteremia with Klebsiella and was discharged on p.o. Levaquin on 07/15 comes back with shaking chills and a temp spike in ER. As per after going home patient did okay but on 07/17 morning was not feeling well ,had some shortness of breath and cough and nausea and vomiting and came to the ER. His calcium and magnesium were somewhat low. Respiratory bio fire was negative. CTA chest was done which was negative for PE but showed small pleural effusions with dependent consolidation. And patient was feeling well and declined chest pain or shortness of breath at that time and seems ER advised patient to stay in the hospital but patient felt well and wanted to go home and got discharged. His states after going home again he was having nausea and shaking chills and not feeling well and brought him back to the hospital. He had temp spike of 39C in the ER. Current resting comfortably. Hemodynamics are okay. Currently patient denies any headache or any body aches. Denies any chest pain or shortness of breath . Has some cough. Vision is okay. No runny nose or sore throat. No abdominal pain. He had episode of loose stool today. His left flank wound seems draining. Sepsis UTI and recent bacteremia with Klebsiella Was treated with IV antibiotics and discharged on p.o. Levaquin on 07/15 Comes back today with fever and chills and nausea Empirically placed on meropenem and Vanco and Doxy Repeat the tickborne illness studies Patient also has lesion in the left flank which was drained and cultured on the floor last admission and the cultures were unremarkable and is draining again today Will follow cultures, gentle fluids Lactic acid is 1.7 and hemodynamics are okay Close monitor Left flank wound with drainage Possible abscess Empiric antibiotics as above N.p.o. Surgical consult in a.m. for possible I&D Elevated troponin EKG okay Patient asymptomatic Mostly demand ischemia Will follow serial enzymes and echo If any concern will consult cardiology Close monitor History of tobacco abuse hAs cough CT chest in the morning was okay Possible underlying COPD Will place on nebs as needed for now and close monitor Chronic pancreatitis Noted on CT last admission Needs follow-up CKD stage III Creatinine 1.2 around baseline Will follow labs Prolonged QTc QTc 503 Avoid QT prolonging drugs Follow repeat EKG in a.m. Type 2 diabetes Hold home p.o. medications Sliding scale Will monitor BPH On dutasteride Straight cath 4 times daily Currently status post White Needs follow-up with urology Hyperlipidemia On statin Gout On allopurinol Hypomagnesia Replace Hypocalcemia Follow vitamin D levels Follow repeat labs Generalized anxiety disorder On doxepin DVT prophylaxis SCDs for now If no procedures planned will place on Lovenox Disposition Telemetry Full code. History of Present Illness Chief Complaint: Sepsis Primary Care Provider: Connor Kee MD 78-year-old male with past medical history significant for type 2 diabetes, CKD stage III, hypercholesterolemia, right bundle branch block, BPH, chronic bilateral back pain, general anxiety disorder, history of tobacco abuse, history of gout, history of shingles, history of kidney stones, Hx of neurogenic bladder for which he self-caths 4 times a day Recently admitted with severe sepsis in the setting of a UTI and found to have bacteremia with Klebsiella and was discharged on p.o. Levaquin on 07/15 comes back with shaking chills and a temp spike in ER. As per after going home patient did okay but on 07/17 morning was not feeling well ,had some shortness of breath and cough and nausea and vomiting and came to the ER. His calcium and magnesium were somewhat low. Respiratory bio fire was negative. CTA chest was done which was negative for PE but showed small pleural effusions with dependent consolidation. And patient was feeling well and declined chest pain or shortness of breath at that time and seems ER advised patient to stay in the hospital but patient felt well and wanted to go home and got discharged. His states after going home again he was having nausea and shaking chills and not feeling well and brought him back to the hospital. He had temp spike of 39C in the ER. Current resting comfortably. Hemodynamics are okay. Currently patient denies any headache or any body aches. Denies any chest pain or shortness of breath . Has some cough. Vision is okay. No runny nose or sore throat. No abdominal pain. He had episode of loose stool today. His left flank wound seems draining. Past medical history. As mentioned above. Past surgical history. Injection of lumbosacral spine. Laparoscopic appendectomy. Social history. . Quit smoking proximal 0.5 pack a day for 40 years. No alcohol use. No drug use. Family history. Father had heart disorder. Gallbladder disease. Mother had kidney problems. Allergies Allergy/AdvReac Type Severity Reaction Status Date / Time No Known Allergies Allergy Verified 10/07/23 09:14 Home Medications Medication Instructions Recorded Confirmed Type allopurinol 100 mg tablet 100 mg PO BID 07/11/24 07/11/24 History atorvastatin 20 mg tablet 20 mg PO DAILY 07/11/24 07/11/24 History cholecalciferol (vitamin D3) 25 25 mcg PO DAILY 07/11/24 07/11/24 History mcg (1,000 unit) tablet doxepin 75 mg capsule 75 mg PO DAILY 07/11/24 07/11/24 History dutasteride 0.5 mg capsule 0.5 mg PO DAILY 07/11/24 07/11/24 History glipizide 5 mg tablet 5 mg PO DAILY 07/11/24 07/11/24 History methenamine hippurate 1 gram tablet 1 g PO BID 07/11/24 07/11/24 History levofloxacin 750 mg tablet 750 mg PO DAILY 7 days #7 tabs 07/15/24 Rx Past Med/Surg History Problem List (Updated 07/18/24 @ 06:58 by Dedrick Park, ) Skin abscess Acute UTI (urinary tract infection) (Acute) Elevated procalcitonin (Acute) Non-ST elevation ND (NSTEMI) (Acute) Sepsis (Acute) Hypocalcemia (Acute) Hypomagnesemia (Acute) White catheter in place (Acute) History of sepsis (Acute) SOB (shortness of breath) (Acute) Weakness (Acute) Self-catheterizes urinary bladder Bladder outlet obstruction Complicated UTI (urinary tract infection) Gram-negative bacteremia Bladder stone Sepsis Nausea (Acute) Fatigue (Acute) Neurogenic bladder, flaccid Uric acid kidney stone Urinary retention History of laparoscopic appendectomy (02/04/21) Laparoscopic Appendectomy Dr. Hutchinson 02/04/2021 Encounter for pre-operative examination Abdominal pain (Acute) Leukocytosis (Acute) Acute appendicitis (Acute) Lumbar canal stenosis (Acute) Lumbosacral radiculopathy at L5 (Acute) Ureteral stone (Acute) UTI (urinary tract infection) (Acute) Kidney stone (Chronic) Chronic back pain (Chronic) Acute kidney injury (Acute) Intractable pain (Acute) Renal colic (Acute 10/18/14) Medical History History of back problems Kidney stone Surgical History History of ureter stent (10/19/14) Social History Smoking Status: Former smoker Second Hand Exposure: No; Do You Dip or Chew Tobacco: No; Tobacco Cessation Education Requested by Patient: No Hx Alcohol Use: Yes Alcohol type: beer Hx Substance Use: No Preferred Language: Thai Communication Ability: Effective 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 ENT- oropharynx clear Neck- supple, no JVD. Lungs- clear to auscultation no wheezing or crackles Heart- regular rate and rhythm; no murmur, no gallop. Abdomen- normal bowel sounds, soft, nontender, no distension Extremities- Mild lower extremity edema present,, no erythema seen Neuro- alert, oriented ; PERRL, no facial palsy; no dysarthria; moves extremities. Skin- Wound 4x 4 cm seen on left flank and is draining Results & Data Results & Data Vital Signs (Past 12 Hours) Vital Signs Temp Pulse Pulse Resp BP BP Pulse Ox 07/17/24 22:44 102 H 18 92 07/17/24 22:44 39.0 C H 102 H 18 156/72 H 92 07/17/24 22:34 103 H 07/17/24 22:21 37.2 C 111 H 16 136/70 O2 Del Method 07/17/24 22:44 Room Air 07/17/24 22:44 Room Air 07/17/24 22:34 07/17/24 22:21 Diagnostic Findings Laboratory Results WBC 8.71 K/ul (4.8-10.8) 07/17/24 22:40 RBC 3.92 M/uL (4.70-6.10) L 07/17/24 22:40 Hgb 11.4 g/dl (14.0-18.0) L 07/17/24 22:40 Hct 33.3 % (42.0-52.0) L 07/17/24 22:40 MCV 84.9 fL (80.0-100.0) 07/17/24 22:40 MCH 29.1 pg (25.0-34.0) 07/17/24 22:40 MCHC 34.2 g/dL (32.0-36.0) 07/17/24 22:40 RDW Std Deviation 44.1 fL (36.4-46.3) 07/17/24 22:40 RDW Coeff of Kacy 14.4 % (11.5-14.5) 07/17/24 22:40 Plt Count 171 K/uL (130-400) 07/17/24 22:40 MPV 9.1 fL (9.4-12.4) L 07/17/24 22:40 Immature Gran % (Auto) 1.8 % 07/17/24 22:40 Neut % (Auto) 89.1 % 07/17/24 22:40 Lymph % (Auto) 5.9 % 07/17/24 22:40 Ponce % (Auto) 1.1 % 07/17/24 22:40 Eos % (Auto) 1.8 % 07/17/24 22:40 Baso % (Auto) 0.3 % 07/17/24 22:40 Neut # (Auto) 7.75 K/uL (1.40-6.50) H 07/17/24 22:40 Lymph # (Auto) 0.51 K/uL (1.20-3.40) L 07/17/24 22:40 Ponce # (Auto) 0.10 K/uL (0.11-0.59) L 07/17/24 22:40 Eos # (Auto) 0.16 K/uL (0.00-0.50) 07/17/24 22:40 Baso # (Auto) 0.03 K/uL (0.00-0.20) 07/17/24 22:40 Immature Gran # (Auto) 0.16 K/uL (0.01-0.20) 07/17/24 22:40 PT 11.5 Seconds (9.0-12.0) 07/17/24 22:40 INR 1.1 (0.9-1.1) 07/17/24 22:40 Sodium 136 mmol/L (136-145) 07/17/24 22:40 Potassium 3.6 mmol/L (3.5-5.1) 07/17/24 22:40 Chloride 106 mmol/L (98-107) 07/17/24 22:40 Carbon Dioxide 21 mmol/L (21-32) 07/17/24 22:40 Anion Gap 9 (3-11) 07/17/24 22:40 BUN 19 mg/dl (6-23) 07/17/24 22:40 Creatinine 1.22 mg/dl (0.6-1.4) 07/17/24 22:40 Est Cr Clr Drug Dosing Not Reportable 07/17/24 22:40 Est GFR ( Amer) 64.5 ml/min 07/17/24 22:40 Est GFR (Non-Af Amer) 55.6 ml/min 07/17/24 22:40 BUN/Creatinine Ratio 15.6 (10-20) 07/17/24 22:40 Glucose 76 mg/dl (70-99(Fasting)) 07/17/24 22:40 Lactate 1.7 mmol/L (0.4-2.0) 07/17/24 22:40 Calcium 8.2 mg/dl (8.6-10.3) L 07/17/24 22:40 Magnesium 1.7 mg/dl (1.7-2.4) 07/17/24 22:40 Total Bilirubin 1.0 mg/dl (0.2-1.0) 07/17/24 22:40 AST 38 U/L (13-39) 07/17/24 22:40 ALT 46 U/L (7-52) 07/17/24 22:40 Alkaline Phosphatase 81 U/L (34-104) 07/17/24 22:40 Troponin I High Sens 209.3 pg/ml (0-20) H* D 07/18/24 00:35 Total Protein 5.9 gm/dl (6.0-8.3) L 07/17/24 22:40 Albumin 3.3 gm/dl (3.4-5.0) L 07/17/24 22:40 Globulin 2.6 gm/dl (2.5-4.0) 07/17/24 22:40 Albumin/Globulin Ratio 1.3 (0.9-2) 07/17/24 22:40 Lipase 26 U/L (11-82) 07/17/24 22:40 Procalcitonin 15.50 ng/ml (0-0.5) H 07/17/24 22:40 Urine Color Yellow 07/17/24 23:50 Urine Appearance Cloudy (Clear) A 07/17/24 23:50 Urine pH 5.0 (4.5-7.5) 07/17/24 23:50 Ur Specific [place] 1.040 (1.000-1.030) H 07/17/24 23:50 Urine Protein 1+ (Negative) H 07/17/24 23:50 Urine Glucose (UA) Negative (Negative) 07/17/24 23:50 Urine Ketones Negative (Negative) 07/17/24 23:50 Urine Blood 2+ (Negative) H 07/17/24 23:50 Urine Nitrite Negative (Negative) 07/17/24 23:50 Urine Bilirubin Negative (Negative) 07/17/24 23:50 Urine Urobilinogen Negative (Negative) 07/17/24 23:50 Ur Leukocyte Esterase 1+ (Negative) H 07/17/24 23:50 Urine WBC (Auto) 21-50 /hpf (0-5) H 07/17/24 23:50 Urine RBC (Auto) 6-10 /hpf (0-2) H 07/17/24 23:50 U Hyaline Cast (Auto) 3-5 /lpf (0-2) H 07/17/24 23:50 U Epithel Cells (Auto) 0-2 /hpf (0-2) 07/17/24 23:50 Urine Bacteria (Auto) None Seen (None Seen) 07/17/24 23:50 Uric Acid Crystals Present (None Prsent) A 07/17/24 23:50 Urine Yeast Present (None Prsent) A 07/17/24 23:50 SARS-CoV-2 (PCR) NEGATIVE (Negative) 07/17/24 23:00 Influenza Type A (PCR) Negative (Neg) 07/17/24 23:00 Influenza Type B (PCR) Negative (Neg) 07/17/24 23:00 RSV (RT-PCR) Negative (Neg) 07/17/24 23:00 ECG Additional Comments: ECG. Sinus tachycardia rate of 101. Right bundle branch block. QTc 503 Code Status & VTE Plan VTE Prophylaxis Plan VTE Prophylaxis will be ordered: Yes
[2024-07-18] MEDS ORDERED: VANCOMYCIN CONSULT ACTIVE PRN (02:25)
[2024-07-18] MEDS ORDERED: GLUCOSE 10 TAB/TUBE PO PRN (02:25)
[2024-07-18] MEDS ORDERED: GLUCOSE 40% GEL 15 GM TUBE PO PRN (02:25)
[2024-07-18] MEDS ORDERED: DEXTROSE 50% 50 ML SYRINGE IV PRN (02:25)
[2024-07-18] MEDS ORDERED: CARBOHYDRATES FOR HYPOGLYCEMIA PO PRN (02:25)
[2024-07-18] MEDS ORDERED: ONDANSETRON INJ 2 MG/ML 2 ML VIAL IV PRN (02:25)
[2024-07-18] MEDS ORDERED: GLUCAGON FOR INJ 1 MG VIAL SQ PRN (02:25)
[2024-07-18] MEDS ORDERED: NITROGLYCERIN SL 0.4 MG/TAB TAB SL PRN (02:25)
[2024-07-18] MEDS ORDERED: PROMETHAZINE 12.5 MG/50.5 ML BAG IV PRN (02:36)
[2024-07-18] MEDS: INSULIN ASPART PER UNIT CHARGE SC SCH ×2 (02:41→07:59)
[2024-07-18] MEDS: MAGNESIUM SULFATE / D5W 1 GM/100 ML BAG IV ONE (03:23)
[2024-07-18] MEDS: SODIUM CHLORIDE 0.9% 1,000 ML IV SCH (03:23)
[2024-07-18] MEDS: ACETAMINOPHEN 325 MG TAB PO PRN (03:24)
[2024-07-18] MEDS: Patient's HEIGHT &/or WEIGHT Needed ONE (04:07)
[2024-07-18] MEDS: VANCOMYCIN HCL 2,250 MG in SODIUM CHLORIDE 0.9% 500 ML IV STA (04:25)
[2024-07-18 06:06] LABS: Basophils # (auto) 0.03 K/uL (0.00-0.20); Basophils % (auto) 0.3 %; Eosinophils # (auto) 0.08 K/uL (0.00-0.50); Eosinophils % (auto) 0.8 %; Hematocrit (blood only) 29.9 % (42.0-52.0); Hemoglobin 10.1 g/dl (14.0-18.0); Immature Granulocytes # (auto) 0.19 K/uL (0.01-0.20); Lymphocytes # (auto) 0.63 K/uL (1.20-3.40); Lymphocytes % (auto) 6.6 %; Mean Corpuscular Hemoglobin 28.7 pg (25.0-34.0); Mean Corpuscular Hgb Conc 33.8 g/dL (32.0-36.0); Mean Corpuscular Volume 84.9 fL (80.0-100.0); Mean Platelet Volume 9.3 fL (9.4-12.4); Monocytes # (auto) 0.57 K/uL (0.11-0.59); Neutrophils # (auto) 8.02 K/uL (1.40-6.50); Neutrophils % (auto) 84.3 %; Platelet Count 161 K/uL (130-400); RDW Coefficient of Variation 14.6 % (11.5-14.5); RDW Standard Deviation 44.7 fL (36.4-46.3); Red Blood Count 3.52 M/uL (4.70-6.10); White Blood Count 9.52 K/ul (4.8-10.8)
[2024-07-18 06:18] LABS: Albumin Level 2.9 gm/dl (3.4-5.0); BUN Creatinine Ratio 14.4 (10-20); Bilirubin Direct 0.2 mg/dl (0-0.2); Bilirubin,Total 0.8 mg/dl (0.2-1.0); Calcium 7.5 mg/dl (8.6-10.3); Creatinine Clr Calc Pharmacy 65.6 ml/min; Est GFR (African American) 67.1 ml/min; Est GFR (Non-African American) 57.9 ml/min; Phosphorus 3.1 mg/dl (2.5-4.9); Potassium 3.6 mmol/L (3.5-5.1); Total Protein 5.1 gm/dl (6.0-8.3)
[2024-07-18 06:29] LABS: Troponin I High Sensitivity 143.7 pg/ml (0-20)
[2024-07-18 06:57] LABS: Lyme Screen Rflx Confirmation Equivocal (Negative)
--- NOTE | 2024-07-18 06:59 | Surgery Consultation ---
Date of Consultation July 18, 2024 Assessment & Plan (1) Skin abscess: He does a small cutaneous abscess at his left back Will plan on bedside I&D later today at some point History of Present Illness Reason for Consultation: Left flank abscess Attending Physician: Arielle Drew MD History of Present Illness This is an 78-year-old male who was admitted to the hospital yesterday with fevers and chills. He does state that he has had a wound in his lower left back/flank for about the past month. Is periodically opened and drained some serous/purulent fluid and this was cultured last admission but never opened. He states the area has slightly improved from a pain standpoint. States the pain is sharp, without radiation. It is worsened with palpation. No relieving factors. He is not taking any oral blood thinners. He is diabetic. He denies any history of trauma to the area. Allergies Allergy/AdvReac Type Severity Reaction Status Date / Time No Known Allergies Allergy Verified 10/07/23 09:14 Home Medications Medication Instructions Recorded Confirmed Type allopurinol 100 mg tablet 100 mg PO BID 07/11/24 07/11/24 History atorvastatin 20 mg tablet 20 mg PO DAILY 07/11/24 07/11/24 History cholecalciferol (vitamin D3) 25 25 mcg PO DAILY 07/11/24 07/11/24 History mcg (1,000 unit) tablet doxepin 75 mg capsule 75 mg PO DAILY 07/11/24 07/11/24 History dutasteride 0.5 mg capsule 0.5 mg PO DAILY 07/11/24 07/11/24 History glipizide 5 mg tablet 5 mg PO DAILY 07/11/24 07/11/24 History methenamine hippurate 1 gram tablet 1 g PO BID 07/11/24 07/11/24 History levofloxacin 750 mg tablet 750 mg PO DAILY 7 days #7 tabs 07/15/24 Rx Patient History Medical History History of back problems Kidney stone Surgical History History of ureter stent (10/19/14) Social History Smoking Status: Former smoker Second Hand Exposure: No; Do You Dip or Chew Tobacco: No; Tobacco Cessation Education Requested by Patient: No Hx Alcohol Use: Yes Alcohol type: beer Hx Substance Use: No Preferred Language: Japanese Communication Ability: Effective 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 Beliefs That Will Affect Care: None Current Living Situation: Spouse Other Information That Helps Us Care for You: No Feels Safe at Home: Yes Safety Concerns: Feels Safe At This Time Assistive Devices: None Review of Systems Constitutional: + fever and + chills Eyes: no blind spots and no discharge Ear, Nose, Mouth, Throat: no ear pain, no tinnitus and no hearing loss Respiratory: no cough and no dyspnea Cardiovascular: no chest pain and no dyspnea on exertion Gastrointestinal: no abdominal pain, no nausea, no vomiting, no constipation and no diarrhea/loose stools Genitourinary: no dysuria, no urinary hesitancy or no urinary incontinence Musculoskeletal: no back pain and no neck pain Integumentary: + non-healing lesions and + erythema; no changing lesions and no dry skin Neurologic: no gait abnormality and no headache(s) Psychiatric: no behavioral changes and no depression Hematologic / Lymphatic: no easy bleeding and no easy bruising Physical Exam Constitutional: WD/WN, vitals as above Eyes: PERRL, conjunctivae normal, anicteric sclerae ENMT: external ear and nose normal, oropharynx normal Neck: trachea midline, no thyromegaly Respiratory: normal respiratory effort, lungs clear to auscultation Cardiovascular: RRR, no murmur, no edema Gastrointestinal (Abdomen): normal bowel sounds, soft, nontender, no hepatosplenomegaly Musculoskeletal: no cyanosis or clubbing, extremities motor strength 5/5 Skin: no rashes, warm and dry 3-4cm area of erythema of the left lower back/flank, induration mild fluctuance, tender to palpation, able to express small amount of seropurulent fluid Neurologic: PERRL, EOMI, accommodation nl, no face palsy, no dysarthria Psychiatric: A+Ox3, euthymic affect Results & Data Vital Signs (Past 12 Hours) Vital Signs Temp Pulse Pulse Resp BP BP Pulse Ox 07/18/24 04:15 07/18/24 02:48 37.9 C H 88 18 117/64 93 07/18/24 02:10 87 07/18/24 01:51 07/18/24 01:00 82 20 137/72 96 07/17/24 22:44 102 H 18 92 07/17/24 22:44 39.0 C H 102 H 18 156/72 H 92 07/17/24 22:34 103 H 07/17/24 22:21 37.2 C 111 H 16 136/70 O2 Del Method 07/18/24 04:15 Room Air 07/18/24 02:48 Room Air 07/18/24 02:10 07/18/24 01:51 Room Air 07/18/24 01:00 Room Air 07/17/24 22:44 Room Air 07/17/24 22:44 Room Air 07/17/24 22:34 07/17/24 22:21 PG Care Time/CCT Total # of Minutes Spent Total Time Spent with Patient: Total time spent is greater than 50% in coordination of care (as documented) at patient's floor/unit and/or counseling patient: Coding Level of Care Code 84382 INT INP/OBS CARE 3/75MIN Diagnoses Cutaneous abscess of back excluding buttocks L02.212 Site of cutaneous abscess: trunk Site of cutaneous abscess of trunk: back (1) Skin abscess Site of cutaneous abscess: trunk Site of cutaneous abscess of trunk: back Qualified Code(s): L02.212 - Cutaneous abscess of back [any part, except buttock]
[2024-07-18 07:31] LABS: Lyme Ab IgG 2nd Tier Confirm Negative (Negative); Lyme Ab IgM 2nd Tier Confirm Negative (Negative)
--- NOTE | 2024-07-18 07:57 | XRay Report ---
XR chest 1V portable CLINICAL HISTORY: weakness TECHNIQUE: Single frontal radiograph of the chest was obtained. Comparison: Comparison is made to chest radiograph 07/17/2024 FINDINGS: No lines and tubes are seen. Cardiomegaly is noted. The aortic arch is calcified. Prominence and ceph alization of the vasculature is seen. Possible trace left pleural effusion. IMPRESSION: 1. Cardiomegaly and mild pulmonary edema. 2. Trace left pleural effusion. ACT 112: Negative or not required by law. Electronically signed by: Jose Luis Perez M.D. 07/18/2024 7:56 AM
[2024-07-18] MEDS: DOXYCYCLINE HYCLATE 100 MG in DEXTROSE 5% MINI-B 100 ML IV SCH (07:58)
[2024-07-18] MEDS: CHOLECALCIFEROL 25 MCG (1000 UNITS) TAB PO SCH (11:00)
[2024-07-18] MEDS: LIDOCAINE 1%/EPINEPHRINE 1:100,000 50 ML VIAL INFIL ONE (11:37)
--- NOTE | 2024-07-18 11:43 | Operative Report ---
PG Post Operative Report Pre & Post Diagnosis Pre-Op diagnosis: Left flank abscess Postop diagnosis: Infected left flank sebaceous cyst I identified the patient and participated in the time-out.: Yes Procedure Incision and drainage of infected flank sebaceous cyst Surgeon Dedrick Park DO Clay Temperer Doreen Kramer PA-C, Jennifer GAN Estimated Blood Loss 5 Findings Consistent with Post-Op Diagnosis Specimens Left flank abscess for culture Drains None Anesthesia Type Local Complications none Disposition Disposition: Recovery Room Indications 78-year-old male with a left flank abscess Description of Procedure The patient was kept in his hospital bed in right lateral decubitus position. The left flank was prepped and draped in the usual sterile fashion. A timeout was called. The procedure was verified as Incision and drainage of left flank abscess. Surgical, anesthesia and nursing teams agreed and the procedure was begun. After injection of 1% lidocaine with epinephrine, an incision was made directly over the most fluctuant area of abscess using a #11 blade scalpel. Purulent fluid was encountered. Wide drainage was ensured. All loculations were broken up bluntly. At this time the incision was irrigated until clear. Hemostasis was complete. The incision was packed with a half inch packing. Sterile dressing was applied. I attest to the content of the Intraoperative Record and any orders documented therein. Any exceptions are noted below.
--- NOTE | 2024-07-18 11:51 | Electrocardiogram Report ---
Test Reason : Blood Pressure : */* mmHG Vent. Rate : 101 BPM Atrial Rate : 101 BPM P-R Int : 164 ms QRS Dur : 124 ms QT Int : 388 ms P-R-T Axes : 53 60 52 degrees QTcB Int : 503 ms Sinus tachycardia Right bundle branch block Abnormal ECG When compared with ECG of 17-Jul-2024 11:50, Right bundle branch block has replaced Non-specific intra-ventricular conduction delay Confirmed by Agus Kay ([id number]) on 07/18/2024 11:51:23 AM Referred By: REFERRED SELF Confirmed By: Agus Kay
[2024-07-18] MEDS ORDERED: VANCOMYCIN HCL 1,000 MG in SODIUM CHLORIDE 0.9% 250 ML IV SCH (12:00)
--- NOTE | 2024-07-18 13:24 | Pharmacy Report ---
Pharmacy PK ABX Note - Date of Service July 18, 2024 - Assessment and Plan Assessment 78 year old M receiving vancomycin, meropenem, and doxycycline for treatment of sepsis in the setting of UTI and left flank abscess. Recent admit with severe sepsis in the setting of UTI with reported Klebsiella (obtained 07/11/24 and showing resistant to cefazolin and Intermediate to unasyn) growing in the blood and urine. Pertinent microbiologic data includes: Urine, blood, and cyst cul tures currently pending. s/p bedside I & D today. Day # 1 of antimicrobial therapy. Plan Vancomycin * Loading dose: 2250 mg IV x 1 * Maintenance dose: 1000 mg IV every 12 hours * Regimen is predicted to achieve target AUC/GOLDIE of 400-600 mg/L.hr * Will order random vancomycin level for 07/20 Pharmacy will continue to follow and will adjust dose/frequency as necessary. Thank you. Pharmacy has transitioned to AUC monitoring for vancomycin. AUC/GOLDIE is the preferred PK/PD target and is associated with decreased risk of nephrotoxicity compared to traditional trough targets.
--- NOTE | 2024-07-18 14:29 | Hospitalist Progress Note ---
Date of Service July 18, 2024 Assessment & Plan (1) Sepsis: Plan: 78-year-old male with past medical history significant for type 2 diabetes, CKD stage III, hypercholesterolemia, right bundle branch block, BPH, chronic bilateral back pain, general anxiety disorder, history of tobacco abuse, history of gout, history of shingles, history of kidney stones, Hx of neurogenic bladder for which he self-caths 4 times a day Recently admitted with severe sepsis in the setting of a UTI and found to have bacteremia with Klebsiella and was discharged on p.o. Levaquin on 07/15 comes back with shaking chills and a temp spike in ER. As per after going home patient did okay but on 07/17 morning was not feeling well ,had some shortness of breath and cough and nausea and vomiting and came to the ER. His calcium and magnesium were somewhat low. Respiratory bio fire was negative. CTA chest was done which was negative for PE but showed small pleural effusions with dependent consolidation. And patient was feeling well and declined chest pain or shortness of breath at that time and seems ER advised patient to stay in the hospital but patient felt well and wanted to go home and got discharged. His states after going home again he was having nausea and shaking chills and not feeling well and brought him back to the hospital. He had temp spike of 39C in the ER. Current resting comfortably. Hemodynamics are okay. Currently patient denies any headache or any body aches. Denies any chest pain or shortness of breath . Has some cough. Vision is okay. No runny nose or sore throat. No abdominal pain. He had episode of loose stool today. His left flank wound seems draining. Sepsis UTI and recent bacteremia with Klebsiella Was treated with IV antibiotics and discharged on p.o. Levaquin on 07/15 Comes back today with fever and chills and nausea Empirically placed on meropenem and Vanco and Doxy Follow the repeat the tickborne illness studies Patient also has lesion in the left flank which was drained and cultured on the floor last admission and the cultures were unremarkable and is draining again today Will follow cultures, gentle fluids Lactic acid is 1.7 and hemodynamics are stable Infectious Disease consulted once more- per family, pt has been throwing up Levaquin abx at home Close monitor Left flank wound with drainage Possible abscess Empiric antibiotics as above General Surgery consult for possible I&D -s/p I and D on 07/18 -follow consult Elevated troponin EKG okay Patient asymptomatic Mostly demand ischemia follow serial enzymes and echo If any concern will consult cardiology Close monitor History of tobacco abuse hAs cough CT chest in the morning was okay Possible underlying COPD Will place on nebs as needed for now and close monitor Chronic pancreatitis Noted on CT last admission Needs follow-up CKD stage III Creatinine 1.2 around baseline Will follow labs Prolonged QTc QTc 503 Avoid QT prolonging drugs Follow repeat EKGs Type 2 diabetes Hold home p.o. medications Sliding scale Will monitor BPH On dutasteride Straight cath 4 times daily Currently status post White Needs follow-up with urology Hyperlipidemia On statin Gout On allopurinol Hypomagnesia Replace as needed Hypocalcemia vitamin D levels low on daily supplement Generalized anxiety disorder On doxepin DVT prophylaxis: Lovenox SQ Disposition Telemetry Full code. Admission and Anticipated Discharge Date Admission Date: July 18, 2024 Subjective Pt was seen with family at bedside. Per family he has been throwing up Levaquin pills at home. Pt states rigors have stopped Denies other concerns, AAOx3 Review of Systems Review of Systems: All systems reviewed & are unremarkable except as noted in Subjective Physical Exam Physical Exam: General: Alert, oriented. No acute distress Psych: Appropriate mood and affect HEENT: NC/AT CV: RRR Resp: Breath sounds clear bilaterally, no increased effort of breathing. Abdomen: Soft, nontender, nondistended. Extremities: No edema in lower extremities bilaterally. Results & Data Results & Data Vital Signs (Past 12 Hours) Vital Signs Temp Pulse Pulse Resp BP Pulse Ox O2 Del Method 07/18/24 10:52 75 19 119/64 95 Room Air 07/18/24 07:37 72 07/18/24 07:20 78 19 123/68 95 Room Air 07/18/24 04:15 Room Air 07/18/24 02:48 37.9 C H 88 18 117/64 93 Room Air
[2024-07-18] MEDS: CASPOFUNGIN 70 MG in SODIUM CHLORIDE 0.9% 250 ML IV ONE (17:58)
[2024-07-18] MEDS: VANCOMYCIN HCL 1,000 MG in SODIUM CHLORIDE 0.9% 250 ML IV SCH (17:59)
[2024-07-18] MEDS: HEPARIN SOD 5,000 UNIT/0.5 ML VIAL SQ SCH (20:22)
[2024-07-19] MEDS ORDERED: VANCOMYCIN LEVEL ONE (05:30)
[2024-07-19 07:51] LABS: Basophils # (auto) 0.04 K/uL (0.00-0.20); Basophils % (auto) 0.4 %; Eosinophils # (auto) 0.31 K/uL (0.00-0.50); Eosinophils % (auto) 3.2 %; Hematocrit (blood only) 29.4 % (42.0-52.0); Hemoglobin 9.9 g/dl (14.0-18.0); Immature Granulocytes # (auto) 0.15 K/uL (0.01-0.20); Immature Granulocytes % (auto) 1.5 %; Lymphocytes % (auto) 8.2 %; Mean Corpuscular Hemoglobin 28.7 pg (25.0-34.0); Mean Corpuscular Hgb Conc 33.7 g/dL (32.0-36.0); Mean Corpuscular Volume 85.2 fL (80.0-100.0); Mean Platelet Volume 9.2 fL (9.4-12.4); Monocytes # (auto) 0.82 K/uL (0.11-0.59); Monocytes % (auto) 8.4 %; Neutrophils # (auto) 7.68 K/uL (1.40-6.50); Neutrophils % (auto) 78.3 %; Platelet Count 181 K/uL (130-400); RDW Coefficient of Variation 14.4 % (11.5-14.5); RDW Standard Deviation 44.6 fL (36.4-46.3); Red Blood Count 3.45 M/uL (4.70-6.10)
[2024-07-19 08:07] LABS: Albumin Globulin Ratio 1.3 (0.9-2); Albumin Level 2.9 gm/dl (3.4-5.0); BUN Creatinine Ratio 16.1 (10-20); Bilirubin,Total 0.7 mg/dl (0.2-1.0); Calcium 7.3 mg/dl (8.6-10.3); Creatinine Clr Calc Pharmacy 83.2 ml/min; Est GFR (African American) 89.5 ml/min; Est GFR (Non-African American) 77.3 ml/min; Globulin 2.2 gm/dl (2.5-4.0); Magnesium 1.9 mg/dl (1.7-2.4); Phosphorus 2.4 mg/dl (2.5-4.9); Potassium 3.7 mmol/L (3.5-5.1); Total Protein 5.1 gm/dl (6.0-8.3)
--- NOTE | 2024-07-19 08:10 | Surgery Progress Note ---
Date of Service July 19, 2024 Assessment & Plan (1) Skin abscess: Plan: POD 1 Left flank Incision and drainage packing and dressing removed repacked , gauze , abd pad and medipore tape applied pt tolerated well VSS afebrile, wbc wnl Admission and Anticipated Discharge Date Admission Date: July 18, 2024 Supervising Physician Co-Signing Physician Notes Packing changed at bedside Will continue once daily packing changes until he is discharged We will have him remove the packing the day after discharge and then stop packing at that point and cover with a dry dressing He can then follow-up with me 1 week after discharge Subjective mild discomfort to post operative L flank Review of Systems Integumentary: + wounds Physical Exam Constitutional: cooperative and comfortable; no acute distress Respiratory: normal respiratory effort and able to speak in complete sentences Cardiovascular: Rate/Rhythm: regular rate Skin: + wound Results & Data Vital Signs (Past 12 Hours) Vital Signs Temp Pulse Pulse Resp BP BP Pulse Ox 07/19/24 07:59 98.1 F 78 17 142/69 H 93 07/19/24 07:53 07/19/24 02:51 98.2 F 07/19/24 02:50 98.6 F 77 18 147/72 H 96 07/18/24 23:33 79 07/18/24 23:17 07/18/24 23:03 100.4 F H 84 18 144/64 H 95 O2 Del Method 07/19/24 07:59 Room Air 07/19/24 07:53 Room Air 07/19/24 02:51 07/19/24 02:50 Room Air 07/18/24 23:33 07/18/24 23:17 Room Air 07/18/24 23:03 Room Air PG Care Time/CCT Total # of Minutes Spent Total Time Spent with Patient: Total time spent is greater than 50% in coordination of care (as documented) at patient's floor/unit and/or counseling patient: Coding Level of Care Code 38242 Post Operative Follow-Up Diagnoses Cutaneous abscess of back excluding buttocks L02.212 Site of cutaneous abscess: trunk Site of cutaneous abscess of trunk: back (1) Skin abscess Site of cutaneous abscess: trunk Site of cutaneous abscess of trunk: back Qualified Code(s): L02.212 - Cutaneous abscess of back [any part, except buttock]
[2024-07-19] MEDS ORDERED: POTASSIUM PHOS 3 MMOL/1 ML INFUSION IV STA (09:20)
[2024-07-19] MEDS: POTASSIUM PHOSPHATE 21 MMOL in SODIUM CHLORIDE 0.9% 500 ML IV ONE (10:53)
--- NOTE | 2024-07-19 12:34 | Infectious Disease Consult ---
Date of Service July 19, 2024 Telehealth Information I performed this visit using a real-time telehealth connection between my location and the patients location ([facility]). After connecting through interactive tele-video, patient was identified by name and date of and/or wristband check.Patient (or authorized healthcare field sales representative) was informed that this was a telemedicine visit and it was being conducted confidentially over secure lines. My office door was closed and no one else was present in the room with me.Patient (or authorized healthcare field sales representative) provided consent to proceed with the visit, expressed an understanding of privacy and security of the telemedicine visit, and gave permission to have a hospital field sales representative in the room in order to assist with the visit and to conduct portions of the visit, as needed. I informed the patient (or authorized healthcare field sales representative) that I reviewed their record and presented the opportunity for them to ask any questions regarding the visit today. The patient agreed to participate. Assessment & Plan (1) Infected cyst of skin: Plan: Recommend discontinuing meropenem,doxycycline and caspofungin and continuing vancomycin pending finalization of his cultures Plan Patient who was recently discharged on levofloxacin on 07/15/24 to complete a total of 14 days developed fevers on 07/17 and returned to the ER where he was admitted and started on meropenem,vancomycin,doxycycline and caspofungin .His blood and urine cultures have been NGTD and he was evaluated by [facility] for what was thought to be a left flank abscess but what was later found to be an infected sebaceous cyst .His wound cultures are pending and I would recommend discontinuing meropenem,doxycycline and caspofungin and continuing vancomycin pending finalization of his cultures .Thank you for allowing us to participate in the care of this patient ID will continue to follow History of Present Illness History of Present Illness 78 y/o M PMHx type 2 diabetes, CKD stage III, hypercholesterolemia, right bundle branch block, BPH, chronic bilateral back pain, general anxiety disorder, history of tobacco abuse, history of gout, history of shingles, history of kidney stones, Hx of neurogenic bladder for which he self-caths 4 times a day Recently admitted with severe sepsis in the setting of a UTI and found to have bacteremia with Klebsiella and was discharged on p.o. Levaquin on 07/15.He returned to the ER with shaking chills and a fever .His blood and urine cultures are NGTD.Patient had a cyst to his left flank that was drained on his previous admission and is draining .He was seen by GS who did a repeat D&I with wound packing .His wound cultures are no growth and he is on meropenem,vancomycin ,doxycycline and caspofungin Allergies Allergy/AdvReac Type Severity Reaction Status Date / Time No Known Allergies Allergy Verified 10/07/23 09:14 Home Medications Medication Instructions Recorded Confirmed Type allopurinol 100 mg tablet 100 mg PO BID 07/11/24 07/11/24 History atorvastatin 20 mg tablet 20 mg PO DAILY 07/11/24 07/11/24 History cholecalciferol (vitamin D3) 25 25 mcg PO DAILY 07/11/24 07/11/24 History mcg (1,000 unit) tablet doxepin 75 mg capsule 75 mg PO DAILY 07/11/24 07/11/24 History dutasteride 0.5 mg capsule 0.5 mg PO DAILY 07/11/24 07/11/24 History glipizide 5 mg tablet 5 mg PO DAILY 07/11/24 07/11/24 History methenamine hippurate 1 gram tablet 1 g PO BID 07/11/24 07/11/24 History levofloxacin 750 mg tablet 750 mg PO DAILY 7 days #7 tabs 07/15/24 Rx Patient History Medical History History of back problems Kidney stone Surgical History History of ureter stent (10/19/14) Social History Smoking Status: Former smoker Second Hand Exposure: No; Do You Dip or Chew Tobacco: No; Tobacco Cessation Education Requested by Patient: No Hx Alcohol Use: Yes Alcohol type: beer Hx Substance Use: No Preferred Language: Albanian Communication Ability: Effective Biostatistician Required: No Beliefs That Will Affect Care: None Current Living Situation: Spouse Other Information That Helps Us Care for You: No Feels Safe at Home: Yes Safety Concerns: Feels Safe At This Time Assistive Devices: Walker Review of Systems Patient awake but drowsy Physical Exam Patient awake drowsy no respiratory distress Results & Data Vital Signs (Past 12 Hours) Vital Signs Temp Pulse Pulse Resp BP BP Pulse Ox 07/19/24 11:50 75 07/19/24 10:30 36.5 C 91 H 17 154/71 H 91 07/19/24 07:59 36.7 C 78 17 142/69 H 93 07/19/24 07:53 07/19/24 02:51 36.8 C 07/19/24 02:50 37 C 77 18 147/72 H 96 O2 Del Method 07/19/24 11:50 07/19/24 10:30 Room Air 07/19/24 07:59 Room Air 07/19/24 07:53 Room Air 07/19/24 02:51 07/19/24 02:50 Room Air Laboratory Results No leukocytosis Diagnostic Findings IMPRESSION: 1. The heart is enlarged and there is nonspecific intralobular septal thickening. This can be seen with acute versus chronic congestive change and clinical correlation will be required. 2. Small pleural effusions with dependent consolidation. This likely represents atelectasis and clinical correlation will be required. 3. There is mild nonspecific infiltration between the pancreatic head and duodenum. This may be related to fluid status. Correlate with clinical and laboratory findings for evidence of a mild pancreatitis/duodenitis. 4. Cholelithiasis. 5. The bladder is largely decompressed around a White catheter and appears thick walled. Correlate with clinical findings and urinalysis. 6. There is a large bladder calculus. 7. Advanced colonic diverticulosis without CT evidence of acute diverticulitis.
--- NOTE | 2024-07-19 13:33 | Electrocardiogram Report ---
Test Reason : Blood Pressure : */* mmHG Vent. Rate : 76 BPM Atrial Rate : 76 BPM P-R Int : 196 ms QRS Dur : 130 ms QT Int : 422 ms P-R-T Axes : 51 54 34 degrees QTcB Int : 474 ms Normal sinus rhythm Right bundle branch block Abnormal ECG When compared with ECG of 17-Jul-2024 22:39, No significant change was found Confirmed by Agus Kay ([id number]) on 07/19/2024 1:32:30 PM Referred By: REFERRED SELF Confirmed By: Agus Kay
[2024-07-19] MEDS ORDERED: CASPOFUNGIN 50 MG in SODIUM CHLORIDE 0.9% 250 ML IV SCH (17:00)
[2024-07-19] MEDS: cefTRIAXone SODIUM 2,000 MG/50 ML BAG IV SCH (17:46)
--- NOTE | 2024-07-19 17:58 | Hospitalist Progress Note ---
Date of Service July 19, 2024 Assessment & Plan (1) Sepsis: Plan: Mr. Oneill is an 78-year-old male with past medical history significant for type 2 diabetes, CKD stage III, hypercholesterolemia, right bundle branch block, BPH, chronic bilateral back pain, general anxiety disorder, history of tobacco abuse, history of gout, history of shingles, history of kidney stones, Hx of neurogenic bladder for which he self-caths 4 times a day Recently admitted with severe sepsis in the setting of a UTI and found to have bacteremia with Klebsiella and was discharged on p.o. Levaquin on 07/15 comes back with shaking chills and a temp spike in ER. Patient noted to have left flank abscess and is now s/p ID on 07/18 #Sepsis, multifactorial #Left flank abscess s/p ID 07/18 #Acute complicate UTI UTI and recent bacteremia with Klebsiella Was treated with IV antibiotics and discharged on p.o. Levaquin on 07/15 Comes back today with fever and chills and nausea Empirically placed on meropenem and Vanco and Doxy Follow the repeat the tickborne illness studies s/p ID on 07/18 Awaiting final ID recs -Continue CTX for klebsiella coveraged -Contine Vanco until final cultures -follow consult #Elevated troponin EKG okay Patient asymptomatic Mostly demand ischemia #History of tobacco abuse #chronic cough CT chest in the morning was okay Possible underlying COPD Will place on nebs as needed for now and close monitor #Chronic pancreatitis Noted on CT last admission Needs follow-up #CKD stage III Creatinine 1.2 around baseline Will follow labs #Prolonged QTc QTc 503 Avoid QT prolonging drugs Follow repeat EKGs #Type 2 diabetes Hold home p.o. medications Sliding scale Will monitor #BPH On dutasteride Straight cath 4 times daily Currently status post White Needs follow-up with urology #Hyperlipidemia On statin #Gout On allopurinol #Hypomagnesia Replace as needed #Hypocalcemia vitamin D levels low on daily supplement #Generalized anxiety disorder On doxepin DVT prophylaxis: Lovenox SQ Disposition Telemetry Full code. Admission and Anticipated Discharge Date Admission Date: July 18, 2024 Subjective Improved overall Reports extreme disappointment with no discharge today Physical Exam Constitutional: WD/WN, vitals as above Respiratory: normal respiratory effort, lungs clear to auscultation Cardiovascular: RRR, no murmur, no edema Results & Data Results & Data Vital Signs (Past 12 Hours) Vital Signs Temp Pulse Pulse Resp BP BP Pulse Ox 07/19/24 14:52 36.3 C L 83 19 139/82 94 07/19/24 14:15 89 07/19/24 11:50 75 07/19/24 10:30 36.5 C 91 H 17 154/71 H 91 07/19/24 07:59 36.7 C 78 17 142/69 H 93 07/19/24 07:53 O2 Del Method 07/19/24 14:52 Room Air 07/19/24 14:15 07/19/24 11:50 07/19/24 10:30 Room Air 07/19/24 07:59 Room Air 07/19/24 07:53 Room Air Laboratory Results Short CBC 07/19/24 Range/Units 06:32 WBC 9.80 (4.8-10.8) K/ul Hgb 9.9 L (14.0-18.0) g/dl Hct 29.4 L (42.0-52.0) % Plt Count 181 (130-400) K/uL BMP 07/19/24 06:32 Sodium 137 Potassium 3.7 Chloride 109 H Carbon Dioxide 22 BUN 15 Creatinine 0.93 Glucose 66 L Calcium 7.3 L Liver Function 07/19/24 Range/Units 06:32 Total Bilirubin 0.7 (0.2-1.0) mg/dl AST 30 (13-39) U/L ALT 36 (7-52) U/L Alkaline Phosphatase 67 (34-104) U/L Albumin 2.9 L (3.4-5.0) gm/dl Medications Administered Home Medications Medication Instructions Recorded Confirmed Last Taken allopurinol 100 mg tablet 100 mg PO BID 07/11/24 07/11/24 Unknown atorvastatin 20 mg tablet 20 mg PO DAILY 07/11/24 07/11/24 Unknown cholecalciferol (vitamin D3) 25 25 mcg PO DAILY 07/11/24 07/11/24 Unknown mcg (1,000 unit) tablet doxepin 75 mg capsule 75 mg PO DAILY 07/11/24 07/11/24 Unknown dutasteride 0.5 mg capsule 0.5 mg PO DAILY 07/11/24 07/11/24 Unknown glipizide 5 mg tablet 5 mg PO DAILY 07/11/24 07/11/24 Unknown methenamine hippurate 1 gram tablet 1 g PO BID 07/11/24 07/11/24 Unknown levofloxacin 750 mg tablet 750 mg PO DAILY 7 days #7 tabs 07/15/24 Unknown Active Medications Generic Name Dose Route Start Last Admin Trade Name Evie PRN Reason Stop Dose Admin Acetaminophen 650 mg 07/18/24 02:44 07/18/24 22:36 Acetaminophen 325 Mg Tab PO 08/17/24 02:43 650 mg Q6H PRN Administration Pain or Fever Heparin Sodium (Porcine) 5,000 units 07/18/24 21:00 07/19/24 08:52 Heparin Sod 5,000 Unit/0.5 Ml Vial SQ 08/17/24 20:59 5,000 units Q12 GREGORIA Administration Sodium Chloride 1,000 mls @ 50 mls/hr 07/18/24 02:25 07/19/24 04:59 Nss IV 08/17/24 02:24 50 mls/hr .Q20H GREGORIA Administration Vancomycin HCl 1,000 mg/ 270 mls @ 200 mls/hr 07/18/24 18:00 07/19/24 06:35 Sodium Chloride IV 07/25/24 17:59 Infused Q12H GREGORIA Infusion Ceftriaxone Sodium 2,000 mg in 50 mls @ 100 mls/hr 07/19/24 18:00 07/19/24 17:46 Rocephin IV 07/24/24 18:31 100 mls/hr Q24H GREGORIA Administration Insulin Aspart 0 units 07/18/24 07:30 07/19/24 17:02 Insulin Aspart Per Unit Charge SC 08/17/24 02:24 Not Given [facility] G[facility]IA Vitamin D 25 mcg 07/18/24 09:00 07/19/24 08:47 Cholecalciferol 25 Mcg (1000 Units) Tab PO 08/17/24 08:59 25 mcg QAM GREGORIA Administration
[2024-07-19 19:29] VITALS: RESP 18
[2024-07-20 05:21] VITALS: O2SAT 95
[2024-07-20] MEDS: VANCOMYCIN LEVEL ONE (06:41)
[2024-07-20] MEDS: CIPROFLOXACIN 250 MG TAB PO SCH (09:16)
[2024-07-20] MEDS: DOXYCYCLINE HYCLATE 100 MG CAP PO SCH (09:16)
--- NOTE | 2024-07-20 09:32 | Discharge Summary ---
Discharge Summary Date of Service July 20, 2024 Principal Dx & Hospital Course #1 = Principal Diagnosis (1) Sepsis: Mr. Oneill is an 78-year-old male with past medical history significant for type 2 diabetes, CKD stage III, hypercholesterolemia, right bundle branch block, BPH, chronic bilateral back pain, general anxiety disorder, history of tobacco abuse, history of gout, history of shingles, history of kidney stones, Hx of neurogenic bladder for which he self-caths 4 times a day Recently admitted with severe sepsis in the setting of a UTI and found to have bacteremia with Klebsiella and was discharged on p.o. Levaquin on 07/15 comes back with shaking chills and a temp spike in ER. Patient noted to have left flank abscess and is now s/p ID on 07/18. ID consulted for recommendations and final recommendations given over TT the morning of discharge. Patient started on PO doxycycline and continued on fluoroquinolone for ongoing treatment of recent bacteremia 2/2 complicated UTI. On day of discharge, patient reports feeling at baseline and denies any acute concerns. Patient with linda in place with planned Urology visit for void trial after antibitoic completion. Discharge discussed with daughter and at bedside. Patient ambulatory without any concern. #Sepsis, multifactorial #Left flank abscess s/p ID 07/18 #Acute complicated UTI c/b uncomplicated gram neg bacteremia UTI and recent bacteremia with Klebsiella Was treated with IV antibiotics and discharged on p.o. Levaquin on 07/15 Comes back today with fever and chills and nausea Empirically placed on meropenem and Vanco and Doxy Follow the repeat the tickborne illness studies s/p ID on 07/18 Awaiting final ID recs -Discontinue IV abx -Doxycyline for 7 days for infected sebaceous cyst -Ciprofloxacin 750mg BID for 4 more days to complete 14 day course for recent bacteremia #Elevated troponin EKG okay Patient asymptomatic Mostly demand ischemia #History of tobacco abuse #chronic cough CT chest in the morning was okay Possible underlying COPD Will place on nebs as needed for now and close monitor #Chronic pancreatitis Noted on CT last admission Needs follow-up #CKD stage III Creatinine 1.2 around baseline Will follow labs #Prolonged QTc QTc 503 Avoid QT prolonging drugs Follow repeat EKGs #Type 2 diabetes Hold home p.o. medications Sliding scale Will monitor #BPH On dutasteride Straight cath 4 times daily Currently status post Linda Needs follow-up with urology -Continue linda until urology follow up #Hyperlipidemia On statin #Gout On allopurinol #Hypomagnesia Replace as needed #Hypocalcemia vitamin D levels low on daily supplement #Generalized anxiety disorder On doxepin Notes For Next Care Provider Plan to remove the packing the day after discharge and then stop packing at that point and cover with a dry dressing Surgery follow up in 1 week Urology follow up in 1 week Medication Changes From Visit Doxycycline 100mg bid for cellulitis/infected sebaceous cyst s/p ID on 07/18 D/c levaquin 2/2 vomiting, tolerate cipro, therefore cipro 750mgh bid EOT 07/24 Admission HPI Per Admitting Provider 78-year-old male with past medical history significant for type 2 diabetes, CKD stage III, hypercholesterolemia, right bundle branch block, BPH, chronic bilateral back pain, general anxiety disorder, history of tobacco abuse, history of gout, history of shingles, history of kidney stones, Hx of neurogenic bladder for which he self-caths 4 times a day Recently admitted with severe sepsis in the setting of a UTI and found to have bacteremia with Klebsiella and was discharged on p.o. Levaquin on 07/15 comes back with shaking chills and a temp spike in ER. As per after going home patient did okay but on 07/17 morning w as not feeling well ,had some shortness of breath and cough and nausea and vomiting and came to the ER. His calcium and magnesium were somewhat low. Respiratory bio fire was negative. CTA chest was done which was negative for PE but showed small pleural effusions with dependent consolidation. And patient was feeling well and declined chest pain or shortness of breath at that time and seems ER advised patient to stay in the hospital but patient felt well and wanted to go home and got discharged. His states after going home again he was having nausea and shaking chills and not feeling well and brought him back to the hospital. He had temp spike of 39C in the ER. Current resting comfortably. Hemodynamics are okay. Currently patient denies any headache or any body aches. Denies any chest pain or shortness of breath . Has some cough. Vision is okay. No runny nose or sore throat. No abdominal pain. He had episode of loose stool today. His left flank wound seems draining. Past medical history. As mentioned above. Past surgical history. Injection of lumbosacral spine. Laparoscopic appendectomy. Social history. . Quit smoking 2013's proximal 0.5 pack a day for 40 years. No alcohol use. No drug use. Family history. Father had heart disorder. Gallbladder disease. Mother had kidney problems. Admission Exam Per Admitting Provider General- Not in acute distress Head- atraumatic Eyes- PERRL. ENT- oropharynx clear Neck- supple, no JVD. Lungs- clear to auscultation no wheezing or crackles Heart- regular rate and rhythm; no murmur, no gallop. Abdomen- normal bowel sounds, soft, nontender, no distension Extremities- Mild lower extremity edema present,, no erythema seen Neuro- alert, oriented ; PERRL, no facial palsy; no dysarthria; moves extremities. Skin- Wound 4x 4 cm seen on left flank and is draining Discharge Exam Constitutional WD/WN, vitals as above Respiratory normal respiratory effort, lungs clear to auscultation Cardiovascular RRR, no murmur, no edema Gastrointestinal (Abdomen) normal bowel sounds, soft, nontender, no hepatosplenomegaly Updated Medication List Medication Instructions Recorded Confirmed Type allopurinol 100 mg tablet 100 mg PO BID 07/11/24 07/11/24 History atorvastatin 20 mg tablet 20 mg PO DAILY 07/11/24 07/11/24 History cholecalciferol (vitamin D3) 25 25 mcg PO DAILY 07/11/24 07/11/24 History mcg (1,000 unit) tablet doxepin 75 mg capsule 75 mg PO DAILY 07/11/24 07/11/24 History dutasteride 0.5 mg capsule 0.5 mg PO DAILY 07/11/24 07/11/24 History glipizide 5 mg tablet 5 mg PO DAILY 07/11/24 07/11/24 History methenamine hippurate 1 gram tablet 1 g PO BID 07/11/24 07/11/24 History ciprofloxacin HCl 750 mg tablet 750 mg PO BID #10 tabs 07/20/24 Rx doxycycline hyclate 100 mg capsule 100 mg PO BID 7 days #13 caps 07/20/24 Rx Hospital Stay Data Consultations 07/17/24 23:33 ED Decision to Admit Stat 07/18/24 08:00 Consult General Surgery Routine 07/18/24 08:15 Consult Infectious Diseases Routine Pending Results Patient Have Any Pending Studies at Discharge: No Discharge Instructions Given to Patient (Per Discharging Provider) You may remove your packing in the left flank the day after you are discharged. You may shower, no soaking in pools/hot tubes or baths. You may keep a dry gauze dressing on over your wound. You can change this daily, or more often if it becomes saturated. You can follow up with Dr. Park in the office 1 week after discharge. You were admitted for sepsis and found to have infected abscess on left side, which was drained. You were continued on antibiotics for your urinary tract infection with bacteremia as well. Given that you were unable to tolerate the levofloxacin, please transition to ciprofloxacin 750mg two times a day for 4 more days (EOT 07/24) For your abscess, please take doxycycline 100mg two times a day for 7 more days. Please take with food. Please hold home methenamine until complete with antibiotics Please call Urology for a follow up appointment to remove linda catheter Total Time Total Time Spent Total Time Spent (In Minutes): 45
[2024-07-20] MEDS: FUROSEMIDE INJ 20 MG/2 ML VIAL IV STA (09:53)
[2024-07-20] MEDS: POTASSIUM CHLORIDE CRTAB 20 MEQ TABCR PO STA (09:53)
[2024-07-20 10:11] LABS: BUN Creatinine Ratio 13.3 (10-20); Calcium 7.6 mg/dl (8.6-10.3); Creatinine Clr Calc Pharmacy 78.9 ml/min; Est GFR (African American) 84.1 ml/min; Est GFR (Non-African American) 72.5 ml/min; Potassium 3.7 mmol/L (3.5-5.1)
[2024-07-20 10:27] VITALS: BP 135/71; PULSE 84; TEMP 97.7
[2024-07-20 10:57] LABS: Hematocrit (blood only) 32.5 % (42.0-52.0); Hemoglobin 10.7 g/dl (14.0-18.0); Mean Corpuscular Hemoglobin 28.1 pg (25.0-34.0); Mean Corpuscular Hgb Conc 32.9 g/dL (32.0-36.0); Mean Corpuscular Volume 85.3 fL (80.0-100.0); Platelet Count 206 K/uL (130-400); RDW Coefficient of Variation 14.1 % (11.5-14.5); RDW Standard Deviation 43.8 fL (36.4-46.3); Red Blood Count 3.81 M/uL (4.70-6.10); White Blood Count 9.11 K/ul (4.8-10.8)
--- NOTE | 2024-07-20 14:42 | Electrocardiogram Report ---
Test Reason : Blood Pressure : */* mmHG Vent. Rate : 63 BPM Atrial Rate : 63 BPM P-R Int : 214 ms QRS Dur : 124 ms QT Int : 452 ms P-R-T Axes : 42 47 27 degrees QTcB Int : 462 ms Sinus rhythm with sinus arrhythmia with 1st degree A-V block Right bundle branch block Abnormal ECG When compared with ECG of 19-Jul-2024 05:04, No significant change was found Confirmed by Agus Kay ([id number]) on 07/20/2024 2:42:45 PM Referred By: REFERRED SELF Confirmed By: Agus Kay
[2024-07-21 03:27] LABS: Babesia microti DNA Not Detected (Not Detected)
== END 2024-07-20 11:59 | disposition home health service (06) | DRG 872 ==
LOC: ED 22:18 → SUATTDRO 07-18 00:26 → 2S 07-18 00:26